=== PATIENT | female | born 1940 | race Caucasian/White ===

== ENCOUNTER → 2021-01-03 19:43 | Outpatient (ROUT) | payer OTHER, SELFPAY | PROVIDERS: PCP Physician Assistant; Visit Provider Physician Assistant | DX: R19.7 Diarrhea, unspecified (principal) | CPT/HCPCS: 87045; 87899 ==

== ENCOUNTER → 2022-03-19 15:21 | Outpatient (CLI) | payer OTHER, SELFPAY ==
[2022-03-19 19:40] LABS: Hematocrit 40.4 % (36-46); Mean Corpuscular HGB Conc 34.7 % (30-36); Mean Corpuscular Hemoglobin 32.4 PG (26-34); Mean Corpuscular Volume 93.3 fL (80-100); Platelet Count 284 X10^3/uL (150-400); Red Blood Cell Count 4.33 X10^6/uL (4.0-5.2); Red Cell Distribution Width 13.1 % (11.6-14.8)
[2022-03-19 20:07] LABS: Erythrocyte Sedimentation Rate 43 MM/HR (0-20)
[2022-03-19 20:19] LABS: TSH w/ Reflex to FT4 1.71 uIU/mL (0.47-4.68)
== END ==
PROVIDERS: PCP Physician Assistant Medical; Visit Provider Family Medicine
DX: F17.210 Nicotine dependence, cigarettes, uncomplicated (principal); R47.1 Dysarthria and anarthria
CPT/HCPCS: 84443; 85027; 85651

== ENCOUNTER 2024-11-30 08:44 | Inpatient (IN) | payer OTHER, SELFPAY ==
[2024-11-30] VITALS (11 sets, daily range): BP systolic 117–162; BP diastolic 60–78; PULSE 71–98; RESP 14–21; TEMP 36.9; O2SAT 96–99; BMI 20.7
--- NOTE | 2024-11-30 09:11 | DI.CT.S_ITS ---
PROCEDURE: CT ABDOMEN PELVIS W CON INDICATIONS: abd pain TECHNIQUE: After the administration of intravenous contrast, axial sections acquired from the lung bases to the pubic symphysis. Coronal and sagittal reformats were performed. For radiation dose reduction, the following was used: automated exposure control, adjustment of mA and/or kV according to patient size. COMPARISON: None. FINDINGS: Image quality: Diagnostic Lower chest: Unremarkable lung bases Moderate hiatal hernia. Liver: Unremarkable Gallbladder and biliary system: Cholecystectomy clips. Dilated CBD measures 1.3 cm in the mid aspect Pancreas: Mildly ectatic pancreatic duct measuring 4 mm at the head. No discrete mass is seen. Spleen: Nonenlarged Adrenals: No discrete nodules Kidneys: No discrete measurable mass or hydronephrosis Vessels and lymph nodes: The main portal vein appears patent. No abdominal aortic aneurysm. Atherosclerotic calcifications are seen. No pathologic lymphadenopathy by size criteria. Bowel and peritoneum: Moderate distal colonic wall thickening and diffuse diverticula. Upstream of this region throughout the rest of the colon, there is significant distention, measuring up to 8 cm in diameter in the cecum. Small amount pelvic free fluid. No acute small bowel obstruction. Body wall: Unremarkable Pelvis: Under distended bladder. Reproductive organs are unremarkable on limited CT evaluation Bones: No acute or significant osseous abnormality. Diffuse degenerative changes are present. IMPRESSION: Wall thickening of the distal colon, possibly colitis. Significant distention of the upstream descending, transverse, ascending colon, and cecum . Differential includes obstruction, pseudo obstruction ([place]'s), and toxic megacolon. Colonoscopy correlation is suggested when clinically appropriate for the possibly obstructing wall thickening in the distal colon. No small bowel obstruction. Distended biliary system, correlate LFTs. Mildly ectatic pancreatic duct without obstructing lesion identified on CT. Differential also includes ampullary dysfunction. Other findings above. Dictated by: Kan Cummins M.D. on 11/30/2024 at 10:16 Approved by: Kan Cummins M.D. on 11/30/2024 at 10:22
--- NOTE | 2024-11-30 09:14 | EKG_ITS ---
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
[2024-11-30 09:22] LABS: Hematocrit 42.6 % (36-46); Hemoglobin 14.4 g/dL (12.0-16.0); Mean Corpuscular HGB Conc 33.8 % (30-36); Mean Corpuscular Hemoglobin 32.9 PG (26-34); Mean Corpuscular Volume 97.2 fL (80-100); Platelet Count 321 X10^3/uL (150-400); Red Blood Cell Count 4.38 X10^6/uL (4.0-5.2); Red Cell Distribution Width 13.9 % (11.6-14.8); White Blood Cell Count 11.1 X10^3/uL (4.5-11.0)
[2024-11-30 09:23] LABS: Add Manual Diff / Slide Review YES
[2024-11-30 09:35] LABS: Alanine Aminotransferase 19 IU/L (<35); Albumin 4.7 g/dL (3.5-5.0); Albumin Globulin Ratio 1.4 (1.0-2.8); Alkaline Phosphatase 132 U/L (38-126); Aspartate Aminotransferase 37 IU/L (14-36); Bilirubin Total 1.4 mg/dL (0.2-1.3); Blood Urea Nitrogen 20 mg/dL (7-17); Calcium 9.6 mg/dL (8.4-10.2); Carbon Dioxide 23 mmol/L (22-32); Chloride 96 mmol/L (98-107); Estimated Glomerular Filt Rate > 60 mL/min (>60); Globulin 3.4 g/dL (1.7-4.1); Glucose 132 mg/dL (70-99); HEMOLYSIS 20 (0-50); Lipase 66 U/L (23-300); Potassium 3.3 mmol/L (3.4-5.1); Sodium 131 mmol/L (137-145); Total Protein 8.1 g/dL (6.3-8.2)
--- NOTE | 2024-11-30 09:35 | ED_ITS ---
HPI - Abdominal Pain General Chief Complaint: Abdominal Pain Stated Complaint: abdominal pain, Time Seen by Provider: 11/30/24 09:10 History of Present Illness HPI narrative: 84-year-old female with one-week duration of increasing generalized abdominal discomfort, feels like she has a little more bloated/distended since yesterday, unclear if she is passing gas, last bowel movement yesterday without black or red stools, normal stool caliber, not particularly hard or loose. Denies trauma injury new activities. No fevers or chills. No painful urination or frequency of urination. Has some nausea without emesis. She recalls colonoscopy screening a few years ago, had polyps diagnosed, no cancers. No prior bowel obstructions. She has prior cholecystectomy surgery and removal of ovaries, does not believe she has had a hysterectomy or appendectomy, no prior bowel intestinal surgeries. No known history of colitis, diverticulitis, Crohn's disease, inflammatory bowel disease, celiac sprue. No frequent/recent problems with constipation. No changes in diet recalled. Denies fevers chills. Denies painful or frequent urination. Related Data Home Medications Medication Instructions Recorded Confirmed hydrochlorothiazide 25 mg tablet 25 mg PO DAILY 01/03/21 11/30/24 lisinopril 10 mg tablet 10 mg PO DAILY 03/19/22 11/30/24 citalopram 20 mg tablet 30 mg PO DAILY 11/30/24 11/30/24 famotidine 20 mg tablet 20 mg PO BID 11/30/24 11/30/24 Previous Rx's Medication Instructions Recorded rosuvastatin 10 mg tablet 10 mg PO DAILY #60 tabs 03/15/22 Allergies Allergy/AdvReac Type Severity Reaction Status Date / Time pollen extracts Allergy Unknown Verified 03/15/22 11:17 Patient History Medical History Lymphadenopathy Dysarthria History of adenomatous polyp of colon Macular drusen Refractive error Surgical History S/P removal of right ovary Social History household members: spouse Smoking Status: Current every day smoker alcohol intake: current Smoking Status: Current every day smoker tobacco type: cigarettes Exam Narrative Exam Narrative: GENERAL: Well-developed patient, in mild distress. HEAD: Atraumatic. Normocephalic. EYES: Pupils equal round and reactive. Extraocular motions intact. No scleral icterus. No injection or drainage. ENT: Nose without bleeding, purulent drainage. Throat without erythema, tonsillar hypertrophy or exudate. Airway patent. NECK: Trachea midline. Non tender CARDIOVASCULAR: Regular rate and rhythm without murmurs, gallops, or rubs. RESPIRATORY: Clear to auscultation. Breath sounds equal bilaterally. No wheezes, rales, or rhonchi. GASTROINTESTINAL: Abdomen soft, non-tender, nondistended. EXTREMITIES: No edema or joint tenderness. BACK: Nontender without deformity or crepitance. No flank tenderness. NEURO: AOx3. Motor functions grossly nonfocal SKIN: No rash or erythema of visible areas Initial Vital Signs Initial Vital Signs: Vital Signs Pulse Rate 81 11/30/24 09:00 Pulse Oximetry 98 11/30/24 09:00 Course Orders Ordered: Acetaminophen (Acetaminophen 325 Mg Tablet) 650 mg PO Q6H PRN PRN Reason: Fever/Mild Pain (1-3) Atorvastatin Calcium (Atorvastatin 20 Mg Tablet) 20 mg PO DAILY [facility] Citalopram Hydrobromide (Citalopram 10 Mg Tablet) 30 mg PO DAILY [facility] Heparin Sodium (Porcine) (Heparin 5,000 Unit/Ml Vial) 5,000 unit SUBCUT BID [facility] Last Admin: 11/30/24 20:34 Dose: 5,000 unit Documented By: Admin: 11/30/24 14:01 Dose: 5,000 unit Documented By: KORIN Hydromorphone HCl (Hydromorphone 0.5 Mg Inj) 0.5 mg IV Q2H PRN PRN Reason: Pain, Severe (7-10) Sodium Chloride (Normal Saline 0.9%) 1,000 mls @ 100 mls/hr IV CONT [facility] Last Admin: 11/30/24 14:03 Dose: 100 mls/hr Documented By: KORIN Ceftriaxone Sodium 1,000 mg/ (Sodium Chloride) 100 mls @ 200 mls/hr IV Q24H [facility] Metronidazole (Flagyl) 500 mg in 100 mls @ 100 mls/hr IV Q8H [facility] Last Admin: 12/01/24 04:51 Dose: 100 mls/hr Documented By: Infusion: 11/30/24 21:34 Dose: Infused Documented By: Admin: 11/30/24 20:34 Dose: 100 mls/hr Documented By: JOB POTASSIUM CHLORIDE IN WATER (Potassium Cl 10 Meq/100 Ml Hemalatha) 10 meq in 100 mls @ 100 mls/hr IV Q1H [facility] Stop: 12/01/24 15:29 Naloxone HCl (Naloxone 0.4 Mg/Ml Vial) 0.2 mg IV Q2MIN PRN PRN Reason: Opiate Reversal Ondansetron HCl (Ondansetron 4 Mg/2 Ml Inj) 4 mg IV NOW PRN PRN Reason: Nausea And Vomiting Ondansetron HCl (Ondansetron 4 Mg Odt) 4 mg PO NOW PRN PRN Reason: Nausea And Vomiting Last Admin: 11/30/24 20:34 Dose: 4 mg Documented By: OJB Oxycodone HCl (Oxycodone Ir 5 Mg Tablet) 5 mg PO Q3H PRN PRN Reason: Pain, Moderate (4-6) Discontinued Medications Hydromorphone HCl (Hydromorphone 0.5 Mg Inj) 0.5 mg IV NOW ONE Stop: 11/30/24 11:33 Last Admin: 11/30/24 11:40 Dose: 0.5 mg Documented By: POTASSIUM CHLORIDE IN WATER (Potassium Cl 10 Meq/100 Ml [place]alatha) 10 meq in 100 mls @ 100 mls/hr IV Q1H [facility] Stop: 11/30/24 12:14 Last Admin: 11/30/24 14:04 Dose: Not Given Documented By: Infusion: 11/30/24 13:26 Dose: Infused Documented By: Admin: 11/30/24 10:18 Dose: 100 mls/hr Documented By: Ceftriaxone Sodium 1,000 mg/ (Sodium Chloride) 100 mls @ 200 mls/hr IV NOW ONE Stop: 11/30/24 11:23 Last Infusion: 11/30/24 12:24 Dose: Infused Documented By: Admin: 11/30/24 11:40 Dose: 200 mls/hr Documented By: Metronidazole (Flagyl) 500 mg in 100 mls @ 100 mls/hr IV NOW ONE Stop: 11/30/24 12:21 Last Infusion: 11/30/24 18:50 Dose: Infused Documented By: Admin: 11/30/24 12:26 Dose: 100 mls/hr Documented By: JR POTASSIUM CHLORIDE IN WATER (Potassium Cl 10 Meq/100 Ml Hemalatha) 10 meq in 100 mls @ 100 mls/hr IV Q1H SOLO Stop: 11/30/24 14:59 Last Infusion: 11/30/24 18:51 Dose: Infused Documented By: Admin: 11/30/24 14:03 Dose: 100 mls/hr Documented By: CLL Vital Signs Vital signs: Vital Signs - 8 hr 11/30/24 09:03 Temperature 98.4 F Pulse Rate 78 Respiratory Rate 14 Blood Pressure 162/78 H Pulse Oximetry 99 Oxygen Delivery Method Room Air MDM - Abdominal Pain Lab Data Attestation: I reviewed the patient's lab results. Lab results narrative: White blood cell count 93169, hemoglobin 14.4, platelets adequate. Glucose 132. BUN 20 with creatinine 0.8 normal renal function. Sodium 131 low. Potassium 3.3 low. Slight elevation T bili, AST, alkaline phosphatase, normal ALT. Lipase 66 normal. 12/01/24 06:11 12/01/24 06:11 Labs: Lab Results 11/30/24 11/30/24 Range/Units 09:02 11:11 WBC 11.1 H (4.5-11.0) X10^3/uL RBC 4.38 (4.0-5.2) X10^6/uL Hgb 14.4 (12.0-16.0) g/dL Hct 42.6 (36-46) % MCV 97.2 (80-100) fL MCH 32.9 (26-34) PG MCHC 33.8 (30-36) % RDW 13.9 (11.6-14.8) % Plt Count 321 (150-400) X10^3/uL Neut % (Auto) Not Reportable Lymph % (Auto) Not Reportable [place] % (Auto) Not Reportable Eos % (Auto) Not Reportable Baso % (Auto) Not Reportable Lymph # (Auto) Not Reportable [place] # (Auto) Not Reportable Baso # (Auto) Not Reportable Total Counted 100 Seg Neutrophils % 78.0 H (38-70) % Lymphocytes % (Manual) 19.0 L (25-45) % Monocytes % (Manual) 3.0 (2-11) % Neutrophils # (Manual) 8658 H (5273-1322) /uL RBC Morphology See below Macrocytosis 1+ H Sodium 131 L (137-145) mmol/L Potassium 3.3 L (3.4-5.1) mmol/L Chloride 96 L (98-107) mmol/L Carbon Dioxide 23 (22-32) mmol/L BUN 20 H (7-17) mg/dL Creatinine 0.80 (0.52-1.04) mg/dL Estimated GFR > 60 (>60) mL/min BUN/Creatinine Ratio 25.0 H (6-22) Glucose 132 H (70-99) mg/dL Lactate 1.7 (0.7-2.1) mmol/L Calcium 9.6 (8.4-10.2) mg/dL Total Bilirubin 1.4 H (0.2-1.3) mg/dL AST 37 H (14-36) IU/L ALT 19 (<35) IU/L Alkaline Phosphatase 132 H (38-126) U/L Total Protein 8.1 (6.3-8.2) g/dL Albumin 4.7 (3.5-5.0) g/dL Globulin 3.4 (1.7-4.1) g/dL Albumin/Globulin Ratio 1.4 (1.0-2.8) Lipase 66 (23-300) U/L Urine RBC 0-1/hpf (0-5/HPF) Urine WBC 0-1/hpf (0-5/HPF) Ur Squamous Epith Cells 0-1 /hpf (0-5/HPF) Urine Bacteria Occasional (0-1) (None) Ur Culture Indicated? Cult not indicated Vol Urine Centrifuged 10ml (spun) Point of care testing: Urine Dip Bedside Urine Glucose Negative Bedside Urine Bilirubin - Negative Bedside Urine Ketone ++ 40 Urine Specific [place] 1.010 Bedside Urine Occult Blood - Negative Bedside Urine pH 6.0 Bedside Urine Protein +/- 15 Bedside Urine Urobilinogen - Negative Bedside Urine Nitrite - Negative Bedside Urine Leukocytes - Negative Esterase Imaging Data CT scan - abdomen/pelvis: Radiologist's Impression: [address] [address] [address] Scan Report Signed Patient: Teagan Feliciano MR#: [id number] : 1940 Acct:[id number] Age/Sex: 84 / F Date of Service: 11/30/24 Loc: ED Accession Number: [id number] Procedure: CT abdomen pelvis w con Ordering Provider: Chaparro Riojas MD PROCEDURE: CT ABDOMEN PELVIS W CON INDICATIONS: abd pain TECHNIQUE: After the administration of intravenous contrast, axial sections acquired from the lung bases to the pubic symphysis. Coronal and sagittal reformats were performed. For radiation dose reduction, the following was used: automated exposure control, adjustment of mA and/or kV according to patient size. COMPARISON: None. FINDINGS: Image quality: Diagnostic Lower chest: Unremarkable lung bases Moderate hiatal hernia. Liver: Unremarkable Gallbladder and biliary system: Cholecystectomy clips. Dilated CBD measures 1.3 cm in the mid aspect Pancreas: Mildly ectatic pancreatic duct measuring 4 mm at the head. No discrete mass is seen. Spleen: Nonenlarged Adrenals: No discrete nodules Kidneys: No discrete measurable mass or hydronephrosis Vessels and lymph nodes: The main portal vein appears patent. No abdominal aortic aneurysm. Atherosclerotic calcifications are seen. No pathologic lymphadenopathy by size criteria. Bowel and peritoneum: Moderate distal colonic wall thickening and diffuse diverticula. Upstream of this region throughout the rest of the colon, there is significant distention, measuring up to 8 cm in diameter in the cecum. Small amount pelvic free fluid. No acute small bowel obstruction. Body wall: Unremarkable Pelvis: Under distended bladder. Reproductive organs are unremarkable on limited CT evaluation Bones: No acute or significant osseous abnormality. Diffuse degenerative changes are present. IMPRESSION: Wall thickening of the distal colon, possibly colitis. Significant distention of the upstream descending, transverse, ascending colon, and cecum . Differential includes obstruction, pseudo obstruction ([place]'s), and toxic megacolon. Colonoscopy correlation is suggested when clinically appropriate for the possibly obstructing wall thickening in the distal colon. No small bowel obstruction. Distended biliary system, correlate LFTs. Mildly ectatic pancreatic duct without obstructing lesion identified on CT. Differential also includes ampullary dysfunction. Other findings above. Dictated by: Kan Cummins M.D. on 11/30/2024 at 10:16 Approved by: Kan Cummins M.D. on 11/30/2024 at 10:22 ECG Data Attestation: I personally reviewed and interpreted this ECG as follows: Interpretation: Normal sinus rhythm with rate of 74, no obvious ST segment elevation or depression changes. OK 178, QRS 88, QTC 466. [facility] Narrative Medical decision making narrative: 84-year-old female complains of generalized abdominal pain for the last one week, some increased abdominal distention since yesterday. Last bowel movement yesterday. Afebrile, sirs screen negative. No significant tenderness upper lower right left central regions abdomen. No obvious ventral hernias. Screening labs pending. CT abdomen and pelvis. Denies pain medications when offered. [place] nauseated prior, not not associated current, denies need for antinausea medications. Anticipate advanced imaging if GFR favorable. Potassium 3.3 low, IV potassium ordered, keep NPO for now. Urinalysis pending. GFR pending. Renal function adequate, CT abdomen and pelvis imaging with IV contrast ordered. CT abdomen and pelvis with IV contrast. Impressions: ?Wall thickening of the distal colon, possible colitis. Significant distention of the upstream descending, transverse, ascending colon, and rectum. Differential includes obstruction, pseudo-obstruction ([place]'s) and toxic megacolon. Colonoscopy correlation is suggested when clinically appropriate for the possibly obstructing wall thickening in the distal colon. No small bowel obstruction. This did biliary system, correlate LFTs. Mildly ectatic duct without obstructing lesion identified on CT. Differential also includes ampullary dysfunction.. See radiology report. Case discussed with general surgery Dr. Encinas, impression read from CT report, in text portion the Cecal diameter 8 cm, does not feel that this is a surgical emergency at this time, can consult if needed, would admit for colitis treatment to hospitalist service. We will contact hospitalist. IV ceftriaxone, IV Flagyl for colitis coverage. Will avoid quinolones for now. 1130, case discussed with hospitalist Dr. Bhandari who accepts patient for admission to observation. Critical Care Time Critical Care Time Critical Care Time: Yes Total Critical Care Time: 35 Attestation: The high probability of a clinically significant, sudden or life threatening deterioration of the [gastrointestinal, abdominopelvic] system(s) required my full and direct attention, intervention and personal management. The aggregate critical care time was [] minutes. This time is in addition to time spent performing reported procedures but includes the following: [x] Data Review and interpretation [x] Patient assessment and monitoring of vital signs x Documentation [x] Medication orders and management Discharge Plan Departure Patient Disposition: Admitted as Observation Clinical Impression: Colitis, Hypokalemia Admit Date/Time: 11/30/24 11:27 Admit Provider: Thaddeus Castaneda
[2024-11-30 09:45] LABS: Macrocytosis 1+; Neutrophils Absolute Manual 8658 /uL (3000-5900); Total Cells Counted 100
[2024-11-30] MEDS: POTASSIUM CHLORIDE IN WATER 10 MEQ/100 ML PIGGYBACK 100 MEQ IV ×2 (10:18→14:03)
[2024-11-30 11:07] LABS: Lactate (Lactic Acid) 1.7 mmol/L (0.7-2.1)
[2024-11-30] MEDS: HYDROMORPHONE 0.5 MG INJ IV (11:40)
[2024-11-30] MEDS: cefTRIAXone 1,000 MG in SODIUM CHLORIDE 0.9% 100 ML 200 MG IV (11:40)
[2024-11-30 11:56] LABS: Bacteria Urine Occasional (0-1); Culture Indicated Urine Cult Not Indicated; RBC Urine 0-1/HPF (0-5/HPF); Squamous Epithelial Cell Urine 0-1 /HPF (0-5/HPF); Urine Volume 10mL (spun); WBC Urine 0-1/HPF (0-5/HPF)
[2024-11-30] MEDS: metroNIDAZOLE 500 MG/100 ML PIGGYBACK 100 MG IV ×2 (12:26→20:34)
--- NOTE | 2024-11-30 13:49 | P.HP_ITS ---
History of Present Illness History of Present Illness Date Patient Seen: 11/30/24 Chief complaint: abdominal pain, Narrative: The patient was an 84-year-old female with a one-week history of abdominal discomfort. She presented because of abdomen bloating. She did have a normal bowel movement yesterday and denies diarrhea. No nausea, or vomiting. No fevers, or chills. She has a history of cholecystectomy and oophorectomy. She was no history of bowel obstruction. CT in the emergency department indicated colitis of the sigmoid colon and dilation of the proximal colon. She notes that this is preceded by working in the garden and being quite hot and probably being dehydrated. She feels that she over did it and did not hydrate enough. She does not have a history of symptoms like this before, denies any clear alleviating or aggravating actions with her pain. The pain does not radiate, and it does come and go. No rectal bleeding. She had a small BM which was normal yesterday. She was urinating less, but denies dysuria or hematuria. No nausea. She was a poor appetite. She does have mild abdominal bloating. [facility] Medical History Lymphadenopathy Dysarthria History of adenomatous polyp of colon Macular drusen Refractive error Surgical History S/P removal of right ovary Social History household members: spouse Smoking Status: Current every day smoker alcohol intake: current Meds Home Medications and Allergies Home Medications Medication Instructions Recorded Confirmed Type hydrochlorothiazide 25 mg tablet 25 mg PO DAILY 01/03/21 11/30/24 History rosuvastatin 10 mg tablet 10 mg PO DAILY #60 tabs 03/15/22 11/30/24 Rx lisinopril 10 mg tablet 10 mg PO DAILY 03/19/22 11/30/24 History citalopram 20 mg tablet 30 mg PO DAILY 11/30/24 11/30/24 History famotidine 20 mg tablet 20 mg PO BID 11/30/24 11/30/24 History Allergies Allergy/AdvReac Type Severity Reaction Status Date / Time pollen extracts Allergy Unknown Verified 03/15/22 11:17 Review of Systems Review of Systems Narrative: All else reviewed and otherwise unremarkable except as noted in the history and physical. Exam Vital Signs (past 8 hours): - 11/30/24 09:00 11/30/24 09:03 11/30/24 09:30 Temperature 98.4 F Pulse Rate 81 78 74 Respiratory Rate 14 18 Blood Pressure 162/78 H Pulse Oximetry 98 99 98 Oxygen Delivery Method Room Air 11/30/24 10:00 11/30/24 10:30 11/30/24 11:07 Temperature Pulse Rate 77 77 98 H Respiratory Rate 17 16 20 Blood Pressure Pulse Oximetry 97 98 96 Oxygen Delivery Method Room Air 11/30/24 11:08 11/30/24 11:08 11/30/24 11:30 Temperature Pulse Rate 92 H Respiratory Rate 18 Blood Pressure 158/67 H 149/76 H Pulse Oximetry 96 Oxygen Delivery Method 11/30/24 11:30 11/30/24 12:00 11/30/24 12:00 Temperature Pulse Rate 81 74 Respiratory Rate 20 21 Blood Pressure 136/66 Pulse Oximetry 99 97 Oxygen Delivery Method 11/30/24 12:30 11/30/24 12:30 Temperature Pulse Rate 75 Respiratory Rate 14 Blood Pressure 129/60 Pulse Oximetry 97 Oxygen Delivery Method Room Air Oxygen Delivery Method Room Air Narrative Exam Narrative: NAD, alert and oriented, fluent speech, calm. Normocephalic skull, EOMI, anicteric sclera, symmetric pupils. Oropharynx unremarkable, no droop. Neck supple, midline trachea, no adenopathy. Lungs clear, normal rate and effort. Heart regular, no murmur gallop or rub. Abdomen is soft, non distended and non tender. Extremities are free of edema. Skin is free of rash or lesions. Joints are not swollen or deformed. Judgment appears to be normal. Objective ECG Impression: Intervals [place] Rate: 74 P: 78 NM: 178 QRS: -28 QRSD: 88 T: 64 QT: 420 QTc: 466 Interpretive Statements Normal sinus rhythm Possible Anterior infarct , age undetermined Imaging CT scan - abdomen: Radiologist's impression: Wall thickening of the distal colon, possibly colitis. Significant distention of the upstream descending, transverse, ascending colon, and cecum . Differential includes obstruction, pseudo obstruction ([place]'s), and toxic megacolon. Colonoscopy correlation is suggested when clinically appropriate for the possibly obstructing wall thickening in the distal colon. No small bowel obstruction. Distended biliary system, correlate LFTs. Mildly ectatic pancreatic duct without obstructing lesion identified on CT. Differential also includes ampullary dysfunction. Other findings above. Labs 11/30/24 09:02 11/30/24 09:02 Labs: Laboratory Results - last 24 hr 11/30/24 11/30/24 09:02 11:11 WBC 11.1 H RBC 4.38 Hgb 14.4 Hct 42.6 MCV 97.2 MCH 32.9 MCHC 33.8 RDW 13.9 Plt Count 321 Neut % (Auto) Not Reportable Lymph % (Auto) Not Reportable [place] % (Auto) Not Reportable Eos % (Auto) Not Reportable Baso % (Auto) Not Reportable Lymph # (Auto) Not Reportable [place] # (Auto) Not Reportable Baso # (Auto) Not Reportable Total Counted 100 Seg Neutrophils % 78.0 H Lymphocytes % (Manual) 19.0 L Monocytes % (Manual) 3.0 Neutrophils # (Manual) 8658 H RBC Morphology See below Macrocytosis 1+ H Sodium 131 L Potassium 3.3 L Chloride 96 L Carbon Dioxide 23 BUN 20 H Creatinine 0.80 Estimated GFR > 60 BUN/Creatinine Ratio 25.0 H Glucose 132 H Lactate 1.7 Calcium 9.6 Total Bilirubin 1.4 H AST 37 H ALT 19 Alkaline Phosphatase 132 H Total Protein 8.1 Albumin 4.7 Globulin 3.4 Albumin/Globulin Ratio 1.4 Lipase 66 Urine RBC 0-1/hpf Urine WBC 0-1/hpf Ur Squamous Epith Cells 0-1 /hpf Urine Bacteria Occasional (0-1) Ur Culture Indicated? Cult not indicated Vol Urine Centrifuged 10ml (spun) Assessment & Plan Assessment & Plan narrative: 1. Possible ischemic colitis, present on admission and active. 2. Probable volume depletion, present on admission and active. 2. Dysarthria, present on admission and stable. Plan: -IV fluids with normal saline. -monitor abdominal pain. -monitor white count. -bowel rest for 12-24 hours. -monitor urine output. She was DNR, her is her proxy decision maker. DNR status was confirmed with her today. Time-Based Coding :: 35 min spent with patient and on the chart (including review of chart, obtaining history, exam, reviewing outside data, placing orders, documenting exam and treatment plan, and counseling patient) on 11/30. Quality VTE Deep Vein Thrombosis/Pulmonary Embolism Present on Admission: No MIPS - Admit I confirm the patient?s Advance Care Plan is present, Code status is documented, Surrogate decision maker is in patient?s record [If Yes, STOP here]: Yes MIPS - Meds 'Current medications' to include all prescriptions, [id number] products, herbals, cannabis/cannabidiol products, and vitamin/mineral/dietary (nutritional) supplements. I have utilized all available resources to obtain, update, or review the patient?s current medications. [If Yes, STOP here]: Yes
[2024-11-30] MEDS: HEPARIN 5,000 UNIT/ML VIAL 5000 UNIT SUBCUT ×2 (14:01→20:34)
[2024-11-30] MEDS: SODIUM CHLORIDE 0.9% 1,000 ML 100 ML IV (14:03)
[2024-11-30] MEDS: ONDANSETRON 4 MG ODT PO (20:34)
--- NOTE | 2024-12-01 02:53 | PC.NURSE ---
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 Bed alarm is on and educated patient on using call-light when needing to get OOB, although patient continuing to get OOB without calling stating I can do it just fine, thank you. Patient requested to pause IVF for a few hours, stating I feel like I'm being tortured, I need a break, in reference to IV pump beeping d/t arm being bent. Attempted another IV site, unsuccessful. Patient agreeable to restart IVF at a later time. Patient denies pain, reports mild nausea w/o emesis. Tolerating sips of water. Abdomen is distended, non-tender. Patient had x1 BM overnight. Fall precautions in place, plan of care ongoing.
[2024-12-01] MEDS: metroNIDAZOLE 500 MG/100 ML PIGGYBACK 100 MG IV ×3 (04:51→21:00)
[2024-12-01 06:32] LABS: Add Manual Diff / Slide Review NO; Basophils Absolute Auto 0 /uL (0-100); Basophils Percent Auto 0.3 % (0-2); Eosinophils Absolute Auto 0 /uL (0-450); Eosinophils Percent Auto 0.1 % (2-4); Hematocrit 38.2 % (36-46); Hemoglobin 12.8 g/dL (12.0-16.0); Lymphocytes Absolute Auto 1000 /uL (1100-4500); Lymphocytes Percent Auto 11.4 % (25-40); Mean Corpuscular HGB Conc 33.6 % (30-36); Mean Corpuscular Hemoglobin 32.2 PG (26-34); Mean Corpuscular Volume 95.9 fL (80-100); Monocytes Absolute Auto 600 /uL (0-900); Monocytes Percent Auto 7.3 % (3-14); Neutrophils Absolute Auto 7000 /uL (1500-7000); Neutrophils Percent Auto 80.9 % (50-75); Platelet Count 293 X10^3/uL (150-400); Red Blood Cell Count 3.99 X10^6/uL (4.0-5.2); Red Cell Distribution Width 14.1 % (11.6-14.8); White Blood Cell Count 8.7 X10^3/uL (4.5-11.0)
[2024-12-01 06:43] LABS: Alanine Aminotransferase 37 IU/L (<35); Albumin 3.9 g/dL (3.5-5.0); Albumin Globulin Ratio 1.3 (1.0-2.8); Alkaline Phosphatase 165 U/L (38-126); Aspartate Aminotransferase 74 IU/L (14-36); BUN Creatinine Ratio 27.9 (6-22); Blood Urea Nitrogen 19 mg/dL (7-17); Calcium 9.2 mg/dL (8.4-10.2); Carbon Dioxide 26 mmol/L (22-32); Chloride 100 mmol/L (98-107); Estimated Glomerular Filt Rate > 60 mL/min (>60); Globulin 2.9 g/dL (1.7-4.1); Glucose 111 mg/dL (70-99); HEMOLYSIS < 15 (0-50); Sodium 134 mmol/L (137-145); Total Protein 6.8 g/dL (6.3-8.2)
[2024-12-01 07:00] VITALS: BP 123/72; PULSE 85; RESP 21; TEMP 36.8; O2SAT 97
--- NOTE | 2024-12-01 08:21 | PC.NURSE ---
Assess- Patient is alert and oriented x3 in the day time but has some confusion in the evening. She is steady on her feet in the day time, but got tangled up in her iv pole and pump last night. Patients abdomen is distended, bt+x4. She denies any nausea or discomfort at this time.
--- NOTE | 2024-12-01 08:47 | DI.RAD.S_ITS ---
PROCEDURE: XR KUB INDICATIONS: abdomen pain TECHNIQUE: One view of the abdomen acquired. COMPARISON: [facility], CT, CT ABDOMEN PELVIS W CON, 11/30/2024, 9:45. FINDINGS: Surgical changes and devices: Surgical clips in right upper quadrant compatible with prior cholecystectomy. Bowel: Redemonstration of multiple prominent air-filled loops of distal colon with increased density in the sigmoid colon and rectum compatible with previously seen fecal material within this region. No radiographic evidence for small bowel obstruction. Soft tissues: No suspicious abdominal calcifications. Visualized solid organ contours appear normal in size. Bones: No suspicious bony lesions. IMPRESSION: Stable appearance of distended colon. No evidence for small bowel obstruction. Dictated by: Jayy Sherman M.D. on 12/01/2024 at 9:19 Approved by: Jayy Sherman M.D. on 12/01/2024 at 9:23
[2024-12-01] MEDS: cefTRIAXone 1,000 MG in SODIUM CHLORIDE 0.9% 100 ML 200 MG IV (10:00)
[2024-12-01] MEDS: POTASSIUM CHLORIDE IN WATER 10 MEQ/100 ML PIGGYBACK 100 MEQ IV ×6 (10:00→17:12)
[2024-12-01] MEDS: HEPARIN 5,000 UNIT/ML VIAL 5000 UNIT SUBCUT ×2 (10:00→20:59)
--- NOTE | 2024-12-01 11:26 | PM.PN.1 ---
Subjective Subjective Interval history: S: Abdomen more distended, no nausea. Minimal pain. She had a very small soft stool overnight. Case was discussed with surgery as her KUB looks grossly abnormal with a lot of retained colonic air. She did have some confusion overnight and does note that she has memory issues. This appears to be consistent with sundowning. Exam Vital Signs (past 8 hours): - 12/01/24 07:00 Temperature 98.2 F Pulse Rate 85 Respiratory Rate 21 Blood Pressure 123/72 Pulse Oximetry 97 Oxygen Delivery Method Room Air Oxygen Flow Rate 0 Narrative Exam Narrative: NAD, alert and oriented. Fluent speech. Lungs are clear, normal rate and effort. Heart is regular, no murmur gallop or rub. Abdomen is distended and hypertympanic. No tenderness.. Extremities are free of edema. Objective Imaging Abdominal x-ray: Radiologist's impression: Stable appearance of distended colon. No evidence for small bowel obstruction. Labs 12/01/24 06:11 12/01/24 06:11 Labs: Laboratory Results - last 24 hr 11/30/24 12/01/24 11:11 06:11 WBC 8.7 RBC 3.99 L Hgb 12.8 Hct 38.2 MCV 95.9 MCH 32.2 MCHC 33.6 RDW 14.1 Plt Count 293 Neut % (Auto) 80.9 H Lymph % (Auto) 11.4 L [place] % (Auto) 7.3 Eos % (Auto) 0.1 L Baso % (Auto) 0.3 Neut # (Auto) 7000 Lymph # (Auto) 1000 L [place] # (Auto) 600 Eos # (Auto) 0 Baso # (Auto) 0 Sodium 134 L Potassium 3.0 L Chloride 100 Carbon Dioxide 26 BUN 19 H Creatinine 0.68 Estimated GFR > 60 BUN/Creatinine Ratio 27.9 H Glucose 111 H Calcium 9.2 Total Bilirubin 1.0 AST 74 H ALT 37 H Alkaline Phosphatase 165 H Total Protein 6.8 Albumin 3.9 Globulin 2.9 Albumin/Globulin Ratio 1.3 Urine RBC 0-1/hpf Urine WBC 0-1/hpf Ur Squamous Epith Cells 0-1 /hpf Urine Bacteria Occasional (0-1) Ur Culture Indicated? Cult not indicated Vol Urine Centrifuged 10ml (spun) FORMERLY [facility], [facility]–1983 Medical History Lymphadenopathy Dysarthria History of adenomatous polyp of colon Macular drusen Refractive error Surgical History S/P removal of right ovary Social History household members: spouse Smoking Status: Current every day smoker alcohol intake: current Assessment & Plan Assessment & Plan narrative: 1. Possible ischemic colitis, present on admission and active. 2. High volume of colonic air, present on admission and persistent. 3. Probable volume depletion, present on admission and active. 4. Dysarthria, present on admission and stable. Plan: -IV fluids with normal saline. -surgical consult for recommendations given the amount of persistent colonic gas. She is not stable for discharge on requires another night of care for her colitis and colonic dilation. Time-Based Coding :: [TOTAL MINUTES] spent with patient and on the chart (including review of chart, obtaining history, exam, reviewing outside data, placing orders, documenting exam and treatment plan, and counseling patient) on [DATE]. Quality VTE Deep Vein Thrombosis/Pulmonary Embolism Present on Admission: No
--- NOTE | 2024-12-01 14:17 | CM.DANOTE ---
Initial DCP Assessment Visit Note Reviewed EMR and team rounds for pt's status and updates. Met with pt and spouse at bedside to introduce self and role, pt was found to be alert/oriented, resting quietly in bed and was visiting w/spouse. Pt lives independently with her spouse in their own home on [facility]. No anticipated care needs for CM d/c needs at this time. Pt's spouse will transport pt once she's been medically cleared for d/c, likely in another 1-2 days. Payor: [employer] Medicare Adv PCP: Violetta Marin Pt is a 84 year-old F wo presented to the ED with c/o worsening abdominal pain and bloating over the last week. CT abdomen showed colitis, however no SBO or other abnormalities. Surgery was consulted, and plan was made for conservative, non-surgical approach at this time. Pt was started on IV ABO's and flagyl, will likely need another 1-2 days before she's stable. Pt does also demonstrate evening sundowning behaviors with increased confusion, however has been able to be redirected without issue. DCP will continue to monitor and assist with any final evolving d/c needs and/or resources for final d/c plan. Discharge Planning/Care Management CM Discharge Assessment Start: 11/30/24 11:37 Freq: Status: Active Protocol: Document 12/01/24 14:15 DPL (Rec: 12/01/24 14:17 DPL [id number]) Discharge Planning Assessment Assigned Electrolytic De Scaler LAURY Carbone Advance Directives? No History Provided By Patient,Family Member,Medical Record Has Patient been admitted in last 30 No days? Prior Living Arrangements House Household Members spouse Type of transporation used prior to Drives own vehicle admit Independent with ADL's Yes Is patient alert and oriented? Yes Caregiver for Another No Comment No AD Comment No anticipated home d/c needs at this time. Barriers to Discharge No Discharge Plan Home Referrals Initiated None needed Whiteboard Updated in Patient Room with Yes name and ext. # of Electrolytic De Scaler Review Status In Process Please Provide Date Initial DC 12/01/24 Assessment Was Performed
--- NOTE | 2024-12-01 18:09 | PM.CN.IH.1 ---
History of Present Illness Consult details Date Patient Seen: 12/01/24 Time Patient Seen: 18:09 Chief complaint: abdominal pain, Narrative: Teagan is an 84-year-old woman who presented to the emergency room with abdominal pain and distention for 1 week. She thought it was related to dehydration after she had been working in the garden. She was not passed much flatus recently. She did have a small bowel movement overnight. A CT scan was performed in the emergency room which showed a dilated proximal colon leading up to a thickened segment of sigmoid colon. There does not appear to be any surrounding inflammation. She believes her last colonoscopy was about 4 years ago in [place] and was relatively unremarkable. Reviewing the EMR it appeared she was seen for left lower quadrant abdominal pain by Dr. Trevino in 2021 who considered the possibility of diverticulitis. Meds Home Medications and Allergies Home Medications Medication Instructions Recorded Confirmed Type hydrochlorothiazide 25 mg tablet 25 mg PO DAILY 01/03/21 11/30/24 History rosuvastatin 10 mg tablet 10 mg PO DAILY #60 tabs 03/15/22 11/30/24 Rx lisinopril 10 mg tablet 10 mg PO DAILY 03/19/22 11/30/24 History citalopram 20 mg tablet 30 mg PO DAILY 11/30/24 11/30/24 History famotidine 20 mg tablet 20 mg PO BID 11/30/24 11/30/24 History Allergies Allergy/AdvReac Type Severity Reaction Status Date / Time pollen extracts Allergy Unknown Verified 03/15/22 11:17 Exam Vital Signs (past 8 hours): Oxygen Delivery Method Room Air Oxygen Flow Rate 0 Narrative Exam Narrative: Abdomen distended Tender to percussion in all 4 quadrants Objective Labs 12/01/24 06:11 12/01/24 06:11 Labs: Laboratory Results - last 24 hr 12/01/24 06:11 WBC 8.7 RBC 3.99 L Hgb 12.8 Hct 38.2 MCV 95.9 MCH 32.2 MCHC 33.6 RDW 14.1 Plt Count 293 Neut % (Auto) 80.9 H Lymph % (Auto) 11.4 L [place] % (Auto) 7.3 Eos % (Auto) 0.1 L Baso % (Auto) 0.3 Neut # (Auto) 7000 Lymph # (Auto) 1000 L [place] # (Auto) 600 Eos # (Auto) 0 Baso # (Auto) 0 Sodium 134 L Potassium 3.0 L Chloride 100 Carbon Dioxide 26 BUN 19 H Creatinine 0.68 Estimated GFR > 60 BUN/Creatinine Ratio 27.9 H Glucose 111 H Calcium 9.2 Total Bilirubin 1.0 AST 74 H ALT 37 H Alkaline Phosphatase 165 H Total Protein 6.8 Albumin 3.9 Globulin 2.9 Albumin/Globulin Ratio 1.3 PFSH Medical History Lymphadenopathy Dysarthria History of adenomatous polyp of colon Macular drusen Refractive error Surgical History S/P removal of right ovary Social History household members: spouse Tobacco & Substance Use Smoking Status: Current every day smoker alcohol intake: current Assessment & Plan Assessment and plan (1) Large bowel obstruction: Status: Acute Plan Teagan appears to have a large bowel obstruction of unclear etiology. A diverticular stricture seems like a distinct possibility. She has been started on antibiotics. If she has a diverticular stricture there is a high chance it will resolve with antibiotics which could allow for decompression of her proximal colon and potentially deferral of a colectomy to an elective situation. I explained to Teagan that if she does not improve soon she may need to have a sigmoid colon resection which would most likely require an end colostomy. As long as her vital signs remain benign we can allow for more time to see if the antibiotics resolve her obstruction. Time-Based Coding :: [TOTAL MINUTES] spent with patient and on the chart (including review of chart, obtaining history, exam, reviewing outside data, placing orders, documenting exam and treatment plan, and counseling patient) on [DATE]. PROFEE Charge Codes Inpatient or Observation consultation: [id number]
[2024-12-01 19:19] LABS: BUN Creatinine Ratio 32.4 (6-22); Blood Urea Nitrogen 24 mg/dL (7-17); Calcium 9.6 mg/dL (8.4-10.2); Carbon Dioxide 20 mmol/L (22-32); Chloride 102 mmol/L (98-107); Estimated Glomerular Filt Rate > 60 mL/min (>60); Glucose 137 mg/dL (70-99); HEMOLYSIS 17 (0-50); Sodium 133 mmol/L (137-145)
[2024-12-01 20:11] VITALS: BP 138/60; PULSE 81; RESP 16; TEMP 36.8; O2SAT 95
[2024-12-01] MEDS: ONDANSETRON 4 MG/2 ML INJ IV (23:12)
[2024-12-02] MEDS: metroNIDAZOLE 500 MG/100 ML PIGGYBACK 100 MG IV ×3 (04:13→20:14)
[2024-12-02 06:50] LABS: Add Manual Diff / Slide Review NO; Basophils Absolute Auto 0 /uL (0-100); Basophils Percent Auto 0.1 % (0-2); Eosinophils Absolute Auto 0 /uL (0-450); Eosinophils Percent Auto 0.1 % (2-4); Hematocrit 39.1 % (36-46); Hemoglobin 13.5 g/dL (12.0-16.0); Lymphocytes Absolute Auto 700 /uL (1100-4500); Lymphocytes Percent Auto 6.2 % (25-40); Mean Corpuscular HGB Conc 34.4 % (30-36); Mean Corpuscular Hemoglobin 33.2 PG (26-34); Mean Corpuscular Volume 96.5 fL (80-100); Monocytes Absolute Auto 1100 /uL (0-900); Monocytes Percent Auto 9.8 % (3-14); Neutrophils Absolute Auto 9000 /uL (1500-7000); Neutrophils Percent Auto 83.8 % (50-75); Platelet Count 311 X10^3/uL (150-400); Red Blood Cell Count 4.06 X10^6/uL (4.0-5.2); Red Cell Distribution Width 14.1 % (11.6-14.8); White Blood Cell Count 10.7 X10^3/uL (4.5-11.0)
[2024-12-02 06:53] LABS: Alanine Aminotransferase 29 IU/L (<35); Albumin 4.1 g/dL (3.5-5.0); Albumin Globulin Ratio 1.3 (1.0-2.8); Alkaline Phosphatase 147 U/L (38-126); Aspartate Aminotransferase 54 IU/L (14-36); BUN Creatinine Ratio 36.1 (6-22); Bilirubin Total 1.3 mg/dL (0.2-1.3); Blood Urea Nitrogen 26 mg/dL (7-17); Calcium 9.6 mg/dL (8.4-10.2); Carbon Dioxide 23 mmol/L (22-32); Chloride 101 mmol/L (98-107); Estimated Glomerular Filt Rate > 60 mL/min (>60); Globulin 3.1 g/dL (1.7-4.1); Glucose 155 mg/dL (70-99); HEMOLYSIS < 15 (0-50); Potassium 4.4 mmol/L (3.4-5.1); Sodium 134 mmol/L (137-145); Total Protein 7.2 g/dL (6.3-8.2)
[2024-12-02 07:00] VITALS: BP 145/66; PULSE 77; RESP 18; TEMP 36.4; O2SAT 97
--- NOTE | 2024-12-02 07:24 | PM.PN.1 ---
Subjective Subjective Interval history: Summary: She was an 84-year-old female who presented with abdominal pain and distention. She was evidence of distal sigmoid colitis and colonic dilation. She was not really improving in surgery is following. There is a possibility of distal obstruction due to either a diverticular stricture or colitis. If the patient fails to improve significantly she may be a candidate for a diverting colostomy on . S: She had a large volume diarrheal stool last night. She was little less distended still quite distended and hypertympanic. She was not hungry. Some nausea. No rectal bleeding. Exam Vital Signs (past 8 hours): Oxygen Delivery Method Room Air Oxygen Flow Rate 0 Narrative Exam Narrative: NAD, alert and oriented. Fluent speech. Lungs are clear, normal rate and effort. Heart is regular, no murmur gallop or rub. Abdomen is distended, hypertympanic, hyperactive bowel tones, and nontender. Extremities are free of edema. Objective Labs 12/02/24 06:10 12/02/24 06:10 Labs: Laboratory Results - last 24 hr 12/01/24 12/02/24 18:29 06:10 WBC 10.7 RBC 4.06 Hgb 13.5 Hct 39.1 MCV 96.5 MCH 33.2 MCHC 34.4 RDW 14.1 Plt Count 311 Neut % (Auto) 83.8 H Lymph % (Auto) 6.2 L Wallace % (Auto) 9.8 Eos % (Auto) 0.1 L Baso % (Auto) 0.1 Neut # (Auto) 9000 H Lymph # (Auto) 700 L Wallace # (Auto) 1100 H Eos # (Auto) 0 Baso # (Auto) 0 Sodium 133 L 134 L Potassium 5.0 D 4.4 Chloride 102 101 Carbon Dioxide 20 L 23 BUN 24 H 26 H Creatinine 0.74 0.72 Estimated GFR > 60 > 60 BUN/Creatinine Ratio 32.4 H 36.1 H Glucose 137 H 155 H Calcium 9.6 9.6 Total Bilirubin 1.3 AST 54 H ALT 29 Alkaline Phosphatase 147 H Total Protein 7.2 Albumin 4.1 Globulin 3.1 Albumin/Globulin Ratio 1.3 PFSH Medical History Lymphadenopathy Dysarthria History of adenomatous polyp of colon Macular drusen Refractive error Surgical History S/P removal of right ovary Social History household members: spouse Smoking Status: Current every day smoker alcohol intake: current Assessment & Plan Assessment & Plan narrative: 1. Possible ischemic colitis, present on admission and active. 2. High volume of colonic air (colonic obstruction), present on admission and persistent. 3. Probable volume depletion, present on admission and active. 4. Dysarthria, present on admission and stable. Plan: -IV fluids with normal saline. -NPO -ambulate -continue IV antibiotics -surgery is considering a diverting colostomy to decompress: If she does not improve clinically via about December 03. , Dr. Tovar. She is not stable for discharge on requires another night of care for her colitis and colonic dilation. Time-Based Coding :: [TOTAL MINUTES] spent with patient and on the chart (including review of chart, obtaining history, exam, reviewing outside data, placing orders, documenting exam and treatment plan, and counseling patient) on [DATE]. Quality VTE Deep Vein Thrombosis/Pulmonary Embolism Present on Admission: No
[2024-12-02] MEDS: CITALOPRAM 10 MG TABLET 30 MG PO (08:30)
[2024-12-02] MEDS: cefTRIAXone 1,000 MG in SODIUM CHLORIDE 0.9% 100 ML 200 MG IV (08:31)
[2024-12-02] MEDS: SODIUM CHLORIDE 0.9% 1,000 ML 100 ML IV ×2 (08:31→21:23)
[2024-12-02] MEDS: HEPARIN 5,000 UNIT/ML VIAL 5000 UNIT SUBCUT (08:31)
[2024-12-02] MEDS: ATORVASTATIN 20 MG TABLET PO (08:31)
[2024-12-02] MEDS: ACETAMINOPHEN 325 MG TABLET 650 MG PO (08:31)
--- NOTE | 2024-12-02 11:03 | CM.DPC ---
DCP Cont. Reviewed EMR and team rounds for status updates. Pt will likely need another 1-2 days before being medically stable for home d/c. Monitoring for any further evolving d/c needs.
--- NOTE | 2024-12-02 17:57 | PM.PN.IH.1 ---
Subjective Subjective Date Patient Seen: 12/02/24 Time Patient Seen: 17:57 Interval history: Teagan has had some liquid stool but she still feels distended and nauseous. She has vomited. She was not passed flatus. Exam Vital Signs (past 8 hours): Oxygen Delivery Method Room Air Oxygen Flow Rate 0 Narrative Exam Narrative: Abdomen is about the same distention and tenderness as yesterday No mary peritonitis Objective Labs 12/02/24 06:10 12/02/24 06:10 Labs: Laboratory Results - last 24 hr 12/01/24 12/02/24 18:29 06:10 WBC 10.7 RBC 4.06 Hgb 13.5 Hct 39.1 MCV 96.5 MCH 33.2 MCHC 34.4 RDW 14.1 Plt Count 311 Neut % (Auto) 83.8 H Lymph % (Auto) 6.2 L [place] % (Auto) 9.8 Eos % (Auto) 0.1 L Baso % (Auto) 0.1 Neut # (Auto) 9000 H Lymph # (Auto) 700 L [place] # (Auto) 1100 H Eos # (Auto) 0 Baso # (Auto) 0 Sodium 133 L 134 L Potassium 5.0 D 4.4 Chloride 102 101 Carbon Dioxide 20 L 23 BUN 24 H 26 H Creatinine 0.74 0.72 Estimated GFR > 60 > 60 BUN/Creatinine Ratio 32.4 H 36.1 H Glucose 137 H 155 H Calcium 9.6 9.6 Total Bilirubin 1.3 AST 54 H ALT 29 Alkaline Phosphatase 147 H Total Protein 7.2 Albumin 4.1 Globulin 3.1 Albumin/Globulin Ratio 1.3 PFSH Medical History Lymphadenopathy Dysarthria History of adenomatous polyp of colon Macular drusen Refractive error Surgical History S/P removal of right ovary Social History household members: spouse Smoking Status: Current every day smoker alcohol intake: current Assessment & Plan Assessment and plan (1) Large bowel obstruction: Status: Acute Plan If she does not open up and start passing significantly more stool and flatus by tomorrow I think she needs to have surgery to resect the portion of her colon causing the obstruction. I explained to her and her that this would require a colostomy because there would be too high of a risk for a primary anastomosis given the degree of colonic distention above the stricture. Time-Based Coding :: [TOTAL MINUTES] spent with patient and on the chart (including review of chart, obtaining history, exam, reviewing outside data, placing orders, documenting exam and treatment plan, and counseling patient) on [DATE]. Quality VTE Deep Vein Thrombosis/Pulmonary Embolism Present on Admission: No PROFEE Tissue Coordinator Document charge(s): No
[2024-12-02 20:25] VITALS: BP 147/69; PULSE 87; RESP 17; TEMP 37.3; O2SAT 100
--- NOTE | 2024-12-02 22:06 | PC.NURSE ---
Patient is alert and oriented except did not know day of month and can be forgetful. Breath sounds CTA with RA sat of 100%. HRR w/BP of 147/69. Denied nausea but is belching. Abdomen is distended but soft and BT are hypoactive. Endorses urinary dribbling and urgency but denied dysuria. Is able to turn herself in bed. Is assisted to bathroom with SBA and she holds onto IV pole. Is steady on her feet but takes small, shuffling steps. Is currently NPO except for ice and will be strict NPO after 0000 as surgery is anticipated tomorrow unless she has better bowel elimination overnight. Bilateral calf SCD's were applied at shift change. Denies pain. Fall risk score is moderate and bed alarm is activated.
[2024-12-03] VITALS (30 sets, daily range): BP systolic 99–180; BP diastolic 51–116; PULSE 67–118; RESP 12–121; TEMP 36.2–37.1; O2SAT 92–100; BMI 20.7
--- NOTE | 2024-12-03 | PATH_ITS ---
[facility] Accession Number: [id number] No. of containers..01 Tissue . 01 Material submitted: . colon - COLON AND TERMINAL ILEUM, ILEOCECECTOMY . 01 Diagnosis: COLON AND TERMINAL ILEUM, ILEOCECECTOMY: 1. Segment of colon and terminal ileum with multifocal mucosal erosion and ulceration, with focal gangrenous mucosal necrosis. 2. Mild active serositis. 3. Vermiform appendix with no diagnostic alterations. 4. Fifteen lymph nodes with no evidence of malignancy. 5. No dysplasia, malignancy, granulomas, or infectious organisms identified. See comment. . 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 While the perforation was not identified after fixation of the specimen, the presence of active serositis and focal gangrenous mucosal necrosis is compatible with that history. The etiology is not apparent, but the differential includes infectious etiologies or ischemia, among other possibilities. [facility] 12/10/2024 1636 Local . 01 Electronically signed: . Som Heath MD, Pathologist NPI- [id number] . 01 Gross description: . Received in formalin with two identifiers and cecum, is an ileocecectomy specimen with the ileum measuring 5.9 cm in length by 2.3 cm in diameter and the cecum is distended measuring 15.8 cm in length by 8.5 cm in diameter. The serosa is mottled, violaceous, and erythematous with a small amount of attached adipose. An appendix is identified 4.5 cm in length by 0.6 cm in diameter. . The ileal margin is inked blue, the cecal margin is inked black, and the mesenteric margin is inked green. The lumen is filled with brown, semi-solid fecal material. The mucosa is diffusely mottled, li to erythematous, with small punctate areas of adherent material possibly consistent with exudate averaging 0.3 cm in greatest dimension. The ileocecal valve is diffusely erythematous. The folds of the cecum are attenuated while the folds of the ileum are edematous. Two small polypoid nodules are identified in the ileum, both measuring 0.3 x 0.3 x 0.2 cm. No additional lesions are identified. The martinez average 0.3 cm thick with no perforations identified. An accumulation of hemorrhagic material is identified direactly adjacent to the wall of the ileum across an area measuring 2.0 x 1.3 x 1.0 cm. . The appendix has blanco smooth serosa with slightly dilated vasculature. The lumen is pinpoint averaging 0.1 cm in diameter. The martinez are blanco, averaging 0.3 cm thick with no perrforations identified. The distal tip appears surgically truncated, and no lesions are identified. . Palpation reveals 15 blanco lymph node candidates ranging from 0.3 to 1.1 cm in greatest dimension. . Attending Psychiatrist sections are submitted as follows: A1: Attending Psychiatrist margins en face. A2: Ileum with nodules. A3: Ileum with hemorrhagic area. A4: Full thickness sections with adherent mucosal material. A5: Ileocecal valve. A6: Full thickness ileum and colon. A7: Appendix to include entire bisected distal tip and cross-sections. A8: Two differentially inked bisected lymph node candidates. A9: Single trisected lymph node candidate. A10: Six intact lymph node candidates. A11: Six intact lymph node candidates. ([id number]) /[facility]BI 12/10/2024 1636 Local . 01 Pathologist provided ICD-10: K63.3 . 01 CPT . 350721 Specimen Comment: A courtesy copy of this report has been sent to [phone] Performed at: [address] [address], [place], [place] [id number] MD Som Heath MD Phone: [phone]
[2024-12-03] MEDS: metroNIDAZOLE 500 MG/100 ML PIGGYBACK 100 MG IV ×3 (04:02→22:05)
--- NOTE | 2024-12-03 08:17 | DI.RAD.S_ITS ---
PROCEDURE: XR KUB INDICATIONS: large bowel obstruction TECHNIQUE: One view of the abdomen acquired. COMPARISON: [facility], CR, XR KUB, 12/01/2024, 8:53. FINDINGS: Surgical changes and devices: Cholecystectomy clips. Bowel: : The colon continues to demonstrate dilation without significant interval change. Soft tissues: No suspicious abdominal calcifications. Visualized solid organ contours appear normal in size. Bones: No suspicious bony lesions. IMPRESSION: Relatively unchanged appearance of colonic dilation. Dictated by: Rylee Moscoso M.D. on 12/03/2024 at 10:39 Approved by: Rylee Moscoso M.D. on 12/03/2024 at 10:40
[2024-12-03 09:00] LABS: Add Manual Diff / Slide Review NO; Basophils Absolute Auto 0 /uL (0-100); Basophils Percent Auto 0.1 % (0-2); Eosinophils Absolute Auto 0 /uL (0-450); Eosinophils Percent Auto 0.1 % (2-4); Hematocrit 37.6 % (36-46); Hemoglobin 12.8 g/dL (12.0-16.0); Lymphocytes Absolute Auto 500 /uL (1100-4500); Lymphocytes Percent Auto 9.3 % (25-40); Mean Corpuscular HGB Conc 34.1 % (30-36); Mean Corpuscular Volume 96.7 fL (80-100); Monocytes Absolute Auto 1100 /uL (0-900); Monocytes Percent Auto 20.7 % (3-14); Neutrophils Absolute Auto 3700 /uL (1500-7000); Neutrophils Percent Auto 69.8 % (50-75); Platelet Count 274 X10^3/uL (150-400); Red Blood Cell Count 3.89 X10^6/uL (4.0-5.2); White Blood Cell Count 5.3 X10^3/uL (4.5-11.0)
[2024-12-03 09:06] LABS: INR 1.3 (0.9-1.3); Prothrombin Time 15.1 SECONDS (9.4-12.5)
[2024-12-03 09:09] LABS: PTT Partial Thromboplastin Tim 27 SECONDS (25.1-36.5)
[2024-12-03 09:11] LABS: Alanine Aminotransferase 20 IU/L (<35); Albumin 3.5 g/dL (3.5-5.0); Albumin Globulin Ratio 1.3 (1.0-2.8); Alkaline Phosphatase 112 U/L (38-126); Aspartate Aminotransferase 37 IU/L (14-36); BUN Creatinine Ratio 32.8 (6-22); Bilirubin Total 0.8 mg/dL (0.2-1.3); Blood Urea Nitrogen 21 mg/dL (7-17); Calcium 8.9 mg/dL (8.4-10.2); Carbon Dioxide 23 mmol/L (22-32); Chloride 103 mmol/L (98-107); Estimated Glomerular Filt Rate > 60 mL/min (>60); Globulin 2.7 g/dL (1.7-4.1); Glucose 128 mg/dL (70-99); HEMOLYSIS < 15 (0-50); Magnesium 1.9 mg/dL (1.6-2.3); Potassium 3.5 mmol/L (3.4-5.1); Sodium 136 mmol/L (137-145); Total Protein 6.2 g/dL (6.3-8.2)
[2024-12-03] MEDS: cefTRIAXone 1,000 MG in SODIUM CHLORIDE 0.9% 100 ML 200 MG IV (09:27)
[2024-12-03] MEDS: SODIUM CHLORIDE 0.9% 1,000 ML 100 ML IV ×2 (09:27→22:23)
--- NOTE | 2024-12-03 10:12 | PC.RNWOUND ---
Ostomy Nurse Consult Note Pateint sitting up, alert with her . They said they understood that there was a possibility that patient needed a colostomy. They do not know of anyone that has had an ostomy before. Reviewed the [facility] New Patient guide regarding what a colostomy is. Also gave them the [employer] Pre-op kit. Patient and her verbalized understanding of the need for a colostomy. Pre-op marked patient: Marked in Left Upper Quadrant within the Rectus Muscles and within the patient field of vision. Covered marking with a tagaderm. Left teaching materials in patient's room for further education. Patient and discussed possibly having patient recover at their home in [place] vs [facility]. I will speak to the discharge Planners. Patient most likely will need home health services upon discharge and follow up with an ostomy nurse. I will follow up with patient post surgery for stoma assessment and patient education.
--- NOTE | 2024-12-03 10:40 | CM.DPC ---
DCP Cont. Reviewed EMR and team rounds for status updates. Plan is for surgery today. Pt will need Home Health ordered at time of d/c, however at this time it's unclear as to whether that will be on [place] or down in [place], at their other home. Will plan to f/u with pt on Saturday to confirm preference for HH agency and send referral/orders at that time.
[2024-12-03] MEDS: HYDROMORPHONE 0.5 MG INJ IV (12:48)
[2024-12-03] MEDS: LACTATED RINGERS 1,000 ML 42 ML IV (16:16)
--- NOTE | 2024-12-03 16:20 | P.PN_ITS ---
Subjective Subjective Date Patient Seen: 12/03/24 Time Patient Seen: 16:21 Interval history: Teagan has not made much progress. She is still distended and nauseous. Exam Vital Signs (past 8 hours): - 12/03/24 10:45 12/03/24 16:07 Temperature 98.2 F 98.0 F Pulse Rate 82 77 Respiratory Rate 16 16 Blood Pressure 151/69 H 150/72 H Pulse Oximetry 96 95 Oxygen Delivery Method Room Air Oxygen Flow Rate 0 Oxygen Delivery Method Room Air Oxygen Flow Rate 0 Narrative Exam Narrative: Abdomen distended and tender to percussion in all quadrants Objective Labs 12/03/24 08:38 12/03/24 08:38 Labs: Laboratory Results - last 24 hr 12/03/24 08:38 WBC 5.3 D RBC 3.89 L Hgb 12.8 Hct 37.6 MCV 96.7 MCH 33.0 MCHC 34.1 RDW 14.0 Plt Count 274 Neut % (Auto) 69.8 Lymph % (Auto) 9.3 L [place] % (Auto) 20.7 H Eos % (Auto) 0.1 L Baso % (Auto) 0.1 Neut # (Auto) 3700 Lymph # (Auto) 500 L [place] # (Auto) 1100 H Eos # (Auto) 0 Baso # (Auto) 0 PT 15.1 H INR 1.3 APTT 27 Sodium 136 L Potassium 3.5 Chloride 103 Carbon Dioxide 23 BUN 21 H Creatinine 0.64 Estimated GFR > 60 BUN/Creatinine Ratio 32.8 H Glucose 128 H Calcium 8.9 Magnesium 1.9 Total Bilirubin 0.8 AST 37 H ALT 20 Alkaline Phosphatase 112 Total Protein 6.2 L Albumin 3.5 Globulin 2.7 Albumin/Globulin Ratio 1.3 PFSH Medical History Lymphadenopathy Dysarthria History of adenomatous polyp of colon Macular drusen Refractive error Surgical History S/P removal of right ovary Social History household members: spouse Smoking Status: Current some day smoker alcohol intake: current Assessment & Plan Assessment and plan (1) Large bowel obstruction: Status: Acute Plan I explained to Teagan that since she was not progressing I recommend we proceed to the operating room. I explained that there is a possibility that her obstruction could be from obstructing colon cancer in the sigmoid colon. If it appears that it was a cancer I would attempt to perform a diverting loop colostomy upstream of the blockage of possible so she could decompress and then we could come back when the condition is more optimal for an oncological resection. I will start with a laparoscopic however there is a high chance that we would have to convert to an exploratory laparotomy if there is significant dilation of the proximal colon. She would like to proceed. Time-Based Coding :: [TOTAL MINUTES] spent with patient and on the chart (including review of chart, obtaining history, exam, reviewing outside data, placing orders, documenting exam and treatment plan, and counseling patient) on [DATE]. Quality VTE Deep Vein Thrombosis/Pulmonary Embolism Present on Admission: No PROFEE Vein Pumper Document charge(s): No
[2024-12-03] MEDS: BUPIVACAINE 0.5% W/ EPI (PF) 30 ML VIAL INJ (17:14)
--- NOTE | 2024-12-03 17:37 | PM.PN.1 ---
Subjective Subjective Interval history: Summary: She was an 84-year-old female who presented with abdominal pain and distention. She was evidence of distal sigmoid colitis and colonic dilation. She was not really improving in surgery is following. There is a possibility of distal obstruction due to either a diverticular stricture or colitis. Unfortunately she has not made much progress or improvement, and surgery planning on surgery later today. S: Some small clear watery stools per patient, still nauseous and feels distended. Exam Vital Signs (past 8 hours): - 12/03/24 10:45 12/03/24 16:07 Temperature 98.2 F 98.0 F Pulse Rate 82 77 Respiratory Rate 16 16 Blood Pressure 151/69 H 150/72 H Pulse Oximetry 96 95 Oxygen Delivery Method Room Air Oxygen Flow Rate 0 Oxygen Delivery Method Room Air Oxygen Flow Rate 0 Narrative Exam Narrative: NAD, alert and oriented. Fluent speech. Lungs are clear, normal rate and effort. Heart is regular, no murmur gallop or rub. Abdomen is distended, hypertympanic, hyperactive bowel tones. Minimal diffuse tenderness today. Extremities are free of edema. Objective Labs 12/03/24 08:38 12/03/24 08:38 Labs: Laboratory Results - last 24 hr 12/03/24 08:38 WBC 5.3 D RBC 3.89 L Hgb 12.8 Hct 37.6 MCV 96.7 MCH 33.0 MCHC 34.1 RDW 14.0 Plt Count 274 Neut % (Auto) 69.8 Lymph % (Auto) 9.3 L [place] % (Auto) 20.7 H Eos % (Auto) 0.1 L Baso % (Auto) 0.1 Neut # (Auto) 3700 Lymph # (Auto) 500 L [place] # (Auto) 1100 H Eos # (Auto) 0 Baso # (Auto) 0 PT 15.1 H INR 1.3 APTT 27 Sodium 136 L Potassium 3.5 Chloride 103 Carbon Dioxide 23 BUN 21 H Creatinine 0.64 Estimated GFR > 60 BUN/Creatinine Ratio 32.8 H Glucose 128 H Calcium 8.9 Magnesium 1.9 Total Bilirubin 0.8 AST 37 H ALT 20 Alkaline Phosphatase 112 Total Protein 6.2 L Albumin 3.5 Globulin 2.7 Albumin/Globulin Ratio 1.3 PFSH Medical History Lymphadenopathy Dysarthria History of adenomatous polyp of colon Macular drusen Refractive error Surgical History S/P removal of right ovary Social History household members: spouse Smoking Status: Current some day smoker alcohol intake: current Assessment & Plan Assessment & Plan narrative: 1. Possible ischemic colitis, present on admission and active. 2. Large bowel obstruction, present on admission and persistent. 3. Probable volume depletion, present on admission and active. 4. Dysarthria, present on admission and stable. Plan: -IV fluids with normal saline. -NPO -continue IV antibiotics -Surgery planned for later today. Discussed with Dr. Tovar today. Dispo: Will likely be in the hospital multiple more days to recover after above bowel surgery with likely need for ostomy. Time-Based Coding :: [TOTAL MINUTES] spent with patient and on the chart (including review of chart, obtaining history, exam, reviewing outside data, placing orders, documenting exam and treatment plan, and counseling patient) on [DATE]. Quality VTE Deep Vein Thrombosis/Pulmonary Embolism Present on Admission: No
[2024-12-03] MEDS: BUPIVACAINE LIPOSOME 266 MG/20 ML VIAL INJ (19:24)
--- NOTE | 2024-12-03 20:06 | SUR.OPER ---
2006 TIMEOUT FOR A-LINE PLACEMENT
--- NOTE | 2024-12-03 20:15 | SUR.OPER ---
2014 TIME OUT COMPLETED FOR CENTRAL LINE PLACEMENT
--- NOTE | 2024-12-03 20:32 | SUR.OPER ---
A-LINE PLACED TO LEFT WRIST BY DR.K. RESENDEZ IN OR SUITE
--- NOTE | 2024-12-03 20:42 | PM.OP.1 ---
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 She was started on antibiotics and had some passage of stool but remain distended and nauseous. She was then consented for a diagnostic laparoscopy, exploratory laparotomy and possible stoma. The patient was brought to the operating room and placed on the table in the supine position. A Rashid catheter was placed. The abdomen was prepped and draped in the usual fashion. The initial plan was to start by placing a camera into the abdomen. A 1 cm infraumbilical incision was created and carried down to the fascia. The anterior sheath was scored with cautery. The posterior sheath and peritoneum were grasped between clamps and divided with Metzenbaum scissors. Immediately upon entering the peritoneal cavity air was noted to escape from the abdomen and there was a smell of stool. We then converted to an exploratory laparotomy with a low midline incision that extended from 3 fingerbreadths above the umbilicus to the pubis. A pinhole perforation was found in the cecum. There was no gross contamination in the abdomen is suggesting a very recent perforation. We mobilized the cecum and performed an ileocecectomy by dividing the terminal ileum and the mid ascending colon with the linear cutting stapler using blue loads. The mesentery was taken with a LigaSure. We then placed her in Trendelenburg and began to explore the pelvis. The point of obstruction appeared to be from the rectosigmoid junction to the mid rectum. This portion of the colon was rather contracted and firm however not rock hard. The colon was plastered to the left fallopian tube and the ovary was not visible. The white line of [place] was divided above the area of obstruction and dissection was carried down into the pelvis. The left ureter was quite adherent to this segment of colon and was carefully dissected away from the colon using Metzenbaum scissors. The firm, thickened irregular portion of the rectum seemed to extend down below the peritoneal reflection to the mid rectum or even possibly the distal rectum. At this point a decision was made to leave the sigmoid and rectum alone and focus on the immediate acute problem by bringing out an end ileostomy and a mucous fistula of the ascending colon. We created a stoma in the right upper quadrant through the right rectus muscle. The end of the ileum and the ascending colon were brought through the stoma. We then closed the midline incision with a running 0 PDS reinforced by multiple interrupted 0 Vicryl internal retention sutures. The skin was closed with amber. We then matured the end ileostomy and mucous fistula in a Dulce Maria fashion. The inner wall of the ileum and ascending colon were sewn together. A colostomy appliance was applied. A midline dressing was applied. The patient was brought to ICU intubated because of the late hour. Specimen: Terminal ileum and cecum EBL: 25 mL Catarino MAN provided assistance with exposure, retraction and closure of incisions. Complications: none Post-operative Condition: stable Disposition: PACU
--- NOTE | 2024-12-03 20:44 | DI.RAD.S_ITS ---
PROCEDURE: XR CHEST 1V INDICATIONS: intubated, R IJ central line TECHNIQUE: One view of the chest was acquired. COMPARISON: [facility] ([place]), CR, XR CHEST 2V, 03/19/2022, 15:07. FINDINGS: Surgical changes and devices: Endotracheal tube tip projects over the midthoracic trachea. Right IJ central venous catheter tip projects over the low SVC. Lungs and pleura: Lungs are clear. No pleural effusions or pneumothorax. Mediastinum: Mediastinal contours appear normal. Heart size is normal. Bones and chest wall: No suspicious bony lesions. Overlying soft tissues appear unremarkable. IMPRESSION: Right IJ central venous catheter tip projects over the low SVC. Endotracheal tube tip projects over the midthoracic trachea. Dictated by: Chase Aguilera M.D. on 12/03/2024 at 21:20 Approved by: Chase Aguilera M.D. on 12/03/2024 at 21:21
--- NOTE | 2024-12-03 20:57 | SUR.OPER ---
2055 REPORT TO BIOLOGICAL TECHNICIAN FELICIA REN RN AND FELICIA KOENIG TO ICU WITH ANESTHESIA AND WILL GIVE BEDSIDE REPORT
[2024-12-03] MEDS: propofoL 1,000 MG/100 ML VIAL 10.206 MG IV (21:15)
[2024-12-03] MEDS: NOREPINEPHRINE BITARTRATE/D5W 4 MG/250 ML PLAST..BAG 21.262 MG IV (21:15)
--- NOTE | 2024-12-03 21:43 | SUR.PHASEI ---
late entry 2055: Patient transferred directly to ICU room 230 due to intubation and hypotension; central line and arterial line placed by anesthesia provider prior to transport. Patient to ICU on full monitoring and oxygen at 15 liters by BVM; Bedside report given to ICU nurse. RT to bedside on arrival with vent. Campbell in room with patient.
--- NOTE | 2024-12-03 21:46 | SUR.PHASEI ---
ASSISTANT TO THE PRESIDENT recovering patient in room 230 until ICU team settles patient in.
[2024-12-03 22:29] LABS: Base Excess ABG -1.3 mmol/L (-2-3); Blood Gas Collection Site Arterial Line; Blood Gas Mode Assist Cont Ventilat; Delivery System Adult Ventilator; HCO3 ABG 23 mmol/L (23-27); Oxygen Saturation ABG 98 % (95-100); PCO2 ABG 38.3 mmHg (35-45); PEEP 5; PO2 ABG 105 mmHg (80-100); Respiratory Rate 12; TCO2 ABG 23 mmol/L (23-27); pH ABG 7.39 (7.35-7.45)
[2024-12-03] MEDS: ACETAMINOPHEN IV 1,000 MG/100 ML VIAL 400 MG IV (22:36)
--- NOTE | 2024-12-03 22:54 | RT ---
pt ABG was Po2 of 105 turned her o2 down to 24 from 32
[2024-12-03] MEDS: fentaNYL 1,000 MCG in DEXTROSE 5% IN WATER 230 ML 9.922 MCG IV (23:05)
[2024-12-04] VITALS (65 sets, daily range): BP systolic 94–173; BP diastolic 50–72; PULSE 66–86; RESP 12–35; TEMP 36.6–37.3; O2SAT 92–100
--- NOTE | 2024-12-04 02:19 | PC.NURSE ---
Pt arrived in floor @ 2114, bedside report provided by SSAS DEVELOPER. Running norepi drip titrated for MAP of 65, propofol and fentanyl drips titrated throughout shift (see SEP) @ 2229 ABG results with PAO2 105, FiO2 adjusted from 35 to 24. Peep of 5, RR 12, TV 420. Urine output from 5331-0908 150 ml.
[2024-12-04] MEDS: metroNIDAZOLE 500 MG/100 ML PIGGYBACK 100 MG IV ×3 (03:16→20:15)
[2024-12-04 05:49] LABS: Add Manual Diff / Slide Review NO; Basophils Absolute Auto 0 /uL (0-100); Basophils Percent Auto 0.2 % (0-2); Eosinophils Absolute Auto 0 /uL (0-450); Eosinophils Percent Auto 0.1 % (2-4); Hematocrit 34.1 % (36-46); Hemoglobin 11.8 g/dL (12.0-16.0); Lymphocytes Absolute Auto 600 /uL (1100-4500); Lymphocytes Percent Auto 9.2 % (25-40); Mean Corpuscular HGB Conc 34.6 % (30-36); Mean Corpuscular Hemoglobin 33.3 PG (26-34); Mean Corpuscular Volume 96.2 fL (80-100); Monocytes Absolute Auto 700 /uL (0-900); Monocytes Percent Auto 10.6 % (3-14); Neutrophils Absolute Auto 5000 /uL (1500-7000); Neutrophils Percent Auto 79.9 % (50-75); Platelet Count 265 X10^3/uL (150-400); Red Blood Cell Count 3.55 X10^6/uL (4.0-5.2); Red Cell Distribution Width 13.8 % (11.6-14.8); White Blood Cell Count 6.3 X10^3/uL (4.5-11.0)
[2024-12-04 06:00] LABS: Alanine Aminotransferase 14 IU/L (<35); Albumin 2.3 g/dL (3.5-5.0); Alkaline Phosphatase 72 U/L (38-126); Aspartate Aminotransferase 25 IU/L (14-36); BUN Creatinine Ratio 36.7 (6-22); Bilirubin Total 0.4 mg/dL (0.2-1.3); Blood Urea Nitrogen 22 mg/dL (7-17); Calcium 7.9 mg/dL (8.4-10.2); Carbon Dioxide 27 mmol/L (22-32); Chloride 105 mmol/L (98-107); Estimated Glomerular Filt Rate > 60 mL/min (>60); Globulin 2.4 g/dL (1.7-4.1); Glucose 163 mg/dL (70-99); HEMOLYSIS < 15 (0-50); Magnesium 1.8 mg/dL (1.6-2.3); Potassium 3.5 mmol/L (3.4-5.1); Sodium 135 mmol/L (137-145); Total Protein 4.7 g/dL (6.3-8.2)
--- NOTE | 2024-12-04 06:15 | DI.RAD.S_ITS ---
PROCEDURE: XR CHEST 1V INDICATIONS: Intubated TECHNIQUE: One view of the chest was acquired. COMPARISON: [facility], CR, XR CHEST 1V, 12/03/2024, 20:54. [facility] ([place]), CR, XR CHEST 2V, 03/19/2022, 15:07. FINDINGS: Surgical changes and devices: Endotracheal tube tip 5.2 cm above krystina. Right internal jugular vein approach central venous catheter distal tip overlying the cavoatrial junction. Right upper quadrant surgical clips. Lungs and pleura: Lungs are clear. No pleural effusions or pneumothorax. Mediastinum: Aortic arch calcifications. Mediastinal contours appear normal. Heart size is normal. Bones and chest wall: No suspicious bony lesions. Overlying soft tissues appear unremarkable. IMPRESSION: 1. Support devices in unchanged position. 2. No acute cardiothoracic process. Dictated by: Yair Guadarrama M.D. on 12/04/2024 at 10:18 Approved by: Yair Guadarrama M.D. on 12/04/2024 at 10:20
[2024-12-04] MEDS: CHLORHEXIDINE GLUCONATE 15 ML CUP PO (06:16)
[2024-12-04] MEDS: propofoL 1,000 MG/100 ML VIAL 8.505 MG IV (06:20)
--- NOTE | 2024-12-04 08:21 | PM.PROC.1 ---
Procedures Date/Time Date of procedure: 12/03/24 Time of procedure: 20:06 Arterial Line Time out performed: Yes (20:06) Size (Gauge): 20 Technique used: other (US guidance) Post-Procedure: dry sterile dressing placed Patient tolerated procedure: Well Complications: none Site: left and radial Additional comments: Done in OR at end of case due to pt's pressor requirement
--- NOTE | 2024-12-04 08:22 | PM.PROC.1 ---
Procedures Date/Time Date of procedure: 12/03/24 Time of procedure: 20:14 Arterial Line Size (Gauge): 20 Central Line Placement Time out performed: Yes (20:14) Patient placed on monitor/pulse ox: Yes (Under GA) MD prep: mask, gown, gloves and other (Cap) Central line prep: Chlorhexidine scrub and sterile drapes applied Local anesthesia used: other anesthetic (Pt under GA) Ultrasound used for placement: Yes Central line lumen inserted: triple Post procedure: sutured in place, good blood return, all ports aspirated, flushed, capped and sterile dressing applied Post procedure x-ray: tip of catheter in good position and no pneumothorax seen Patient tolerated procedure: well Complications: none Additional comments: Placed in OR at end of case due to pt's pressor requirement.
[2024-12-04 08:25] LABS: Add Manual Diff / Slide Review NO; Basophils Absolute Auto 0 /uL (0-100); Basophils Percent Auto 0.2 % (0-2); Eosinophils Absolute Auto 0 /uL (0-450); Hematocrit 35.6 % (36-46); Hemoglobin 12.2 g/dL (12.0-16.0); Lymphocytes Absolute Auto 800 /uL (1100-4500); Lymphocytes Percent Auto 11.5 % (25-40); Mean Corpuscular HGB Conc 34.2 % (30-36); Mean Corpuscular Hemoglobin 32.6 PG (26-34); Mean Corpuscular Volume 95.3 fL (80-100); Monocytes Absolute Auto 700 /uL (0-900); Monocytes Percent Auto 9.4 % (3-14); Neutrophils Absolute Auto 5700 /uL (1500-7000); Neutrophils Percent Auto 78.9 % (50-75); Platelet Count 279 X10^3/uL (150-400); Red Blood Cell Count 3.73 X10^6/uL (4.0-5.2); Red Cell Distribution Width 14.2 % (11.6-14.8); White Blood Cell Count 7.3 X10^3/uL (4.5-11.0)
[2024-12-04] MEDS: HYDROMORPHONE 0.5 MG INJ IV (08:26)
[2024-12-04 08:34] LABS: Alanine Aminotransferase 15 IU/L (<35); Albumin 2.5 g/dL (3.5-5.0); Alkaline Phosphatase 81 U/L (38-126); Aspartate Aminotransferase 26 IU/L (14-36); BUN Creatinine Ratio 33.3 (6-22); Bilirubin Total 0.5 mg/dL (0.2-1.3); Blood Urea Nitrogen 21 mg/dL (7-17); Calcium 8.2 mg/dL (8.4-10.2); Carbon Dioxide 23 mmol/L (22-32); Chloride 106 mmol/L (98-107); Estimated Glomerular Filt Rate > 60 mL/min (>60); Globulin 2.6 g/dL (1.7-4.1); Glucose 163 mg/dL (70-99); HEMOLYSIS < 15 (0-50); Potassium 3.8 mmol/L (3.4-5.1); Sodium 134 mmol/L (137-145); Total Protein 5.1 g/dL (6.3-8.2)
--- NOTE | 2024-12-04 09:04 | RT ---
At bedside for extubation, pt suctioned above and below cuff, leak noted and pt awake with no distress noted. Et tube pulled and pt coughed. Pt placed on 2 lpm nc sao2@98%. at bedside and pt toni well with no stridor or distress noted.
--- NOTE | 2024-12-04 10:19 | PC.RNWOUND ---
Ostomy Nurse Consult Note: Patient in bed with at her side. She was recently extubated. She is speaking and is alert and oriented. Assess stoma, appliance is leaking. Removed appliance. Stomas (ileostomy and mucus fistula) are pink/red and edematous. Measures 40mm and budding above skin level at 1.0. Sutures intact. Stoma produced some soft stool mixed with liquid brown stool, aprox. 50cc. Adriana-stomal skin intact. Midline dressing intact. Replaced ostomy appliance with a coloplast two piece appliance and an maria luz ring. was at the bedside while I changed the appliance and he did very well. Patient is feeling hungry and said that her pain in better than the pain she had yesterday. I will follow up with patient on December 07.
[2024-12-04] MEDS: cefTRIAXone 1,000 MG in SODIUM CHLORIDE 0.9% 100 ML 200 MG IV (10:23)
[2024-12-04] MEDS: HEPARIN 5,000 UNIT/ML VIAL 5000 UNIT SUBCUT ×2 (10:23→20:15)
[2024-12-04] MEDS: SODIUM CHLORIDE 0.9% 1,000 ML 100 ML IV (10:24)
--- NOTE | 2024-12-04 13:39 | DIET.CONS2 ---
Dietary Inpatient Consultation Note Admission Date: 11/30/2024 11:27 Pt s/p colostomy at acending colon r/t large bowel obstruction at level of sigmoid/rectal junction. RD consulted for NPO on vent status. Pt extubated today and was able to state she was hungry. Pt worked with ostomy nurse today and will do again Saturday. Diet: 11/30/24 13:48 NPO Diet Diet Modifications: PATIENT MAY HAVE WATER AND ICE CHIPS. DRINK SLOWLY NPO Type: Strict RD f/u when pt eating and appropriate for diet education. Electronically Signed by: Phoebe Courtney 12/04/24 13:39 Clinical Dietitian [address] [id number]
--- NOTE | 2024-12-04 13:45 | CM.DPNOTE ---
DCP Continued: Reviewed EMR and team rounds for pt?s medical status. Patient is s/p ileostomy. Per hospitalist, plan is to manage pain and continue with ostomy care/recovery. DCP entered room, introduced self and role. Patient was found in bed, alert and oriented. Present in the room is pt's spouse, Jose. Per pt and spouse, they are understanding that patient might not be cleared for another week and they are working with neurological surgery teacher on how to manage post-discharge. DCP discussed home health referrals upon discharge, pt and spouse agree a referral is necessary but they are not sure which home they will discharge to - they have a home on [facility] as well as in [place]. Per spouse, [place] is most likely but they have not fully discussed this yet. Pt and spouse were provided with CM phone number if they have further comments or questions - noted that CM team will likely check in after a few days if they have reached a decision to make proper referrals. Plan: Anticipating dc home in a few days or when medically cleared, CM Team following for home health referral. KAM Moody
--- NOTE | 2024-12-04 15:32 | P.PN_ITS ---
Subjective Subjective Date Patient Seen: 12/04/24 Time Patient Seen: 15:22 Interval history: Patient remains sore. Tolerated extubation this morning. Pain control adequate. Exam Vital Signs (past 8 hours): - 12/04/24 07:45 12/04/24 07:45 12/04/24 08:00 Temperature Pulse Rate 79 73 Respiratory Rate 35 H 22 Blood Pressure 133/61 Pulse Oximetry 99 97 12/04/24 08:00 12/04/24 08:10 12/04/24 08:15 Temperature Pulse Rate 85 Respiratory Rate 33 H Blood Pressure 130/60 Pulse Oximetry 98 96 12/04/24 08:15 12/04/24 08:30 12/04/24 08:30 Temperature Pulse Rate 75 Respiratory Rate 20 Blood Pressure 142/63 H 127/53 L Pulse Oximetry 96 12/04/24 08:45 12/04/24 08:45 12/04/24 09:00 Temperature Pulse Rate 77 Respiratory Rate 25 H Blood Pressure 127/58 L 119/56 L Pulse Oximetry 97 12/04/24 09:00 12/04/24 10:00 12/04/24 10:00 Temperature Pulse Rate 72 75 Respiratory Rate 22 18 Blood Pressure 127/58 L Pulse Oximetry 95 98 12/04/24 10:15 12/04/24 10:15 12/04/24 10:30 Temperature Pulse Rate 80 Respiratory Rate 23 Blood Pressure 137/63 129/56 L Pulse Oximetry 97 12/04/24 10:30 12/04/24 10:45 12/04/24 10:45 Temperature Pulse Rate 75 75 Respiratory Rate 20 15 Blood Pressure 133/59 L Pulse Oximetry 95 97 12/04/24 11:00 12/04/24 11:00 12/04/24 11:15 Temperature Pulse Rate 74 75 Respiratory Rate 19 20 Blood Pressure 124/60 Pulse Oximetry 94 95 12/04/24 11:15 12/04/24 11:30 12/04/24 11:30 Temperature Pulse Rate 76 Respiratory Rate 19 Blood Pressure 127/60 132/60 Pulse Oximetry 94 12/04/24 11:48 12/04/24 11:48 12/04/24 12:00 Temperature Pulse Rate 76 75 Respiratory Rate 18 17 Blood Pressure 129/59 L Pulse Oximetry 97 95 12/04/24 12:00 12/04/24 12:15 12/04/24 12:15 Temperature Pulse Rate 76 Respiratory Rate 15 Blood Pressure 142/65 H 114/58 L Pulse Oximetry 95 12/04/24 12:30 12/04/24 12:30 12/04/24 12:45 Temperature Pulse Rate 75 78 Respiratory Rate 17 20 Blood Pressure 121/56 L Pulse Oximetry 95 95 12/04/24 12:45 12/04/24 13:00 12/04/24 13:00 Temperature 97.9 F Pulse Rate 77 Respiratory Rate 18 Blood Pressure 124/57 L Pulse Oximetry 96 12/04/24 13:00 12/04/24 13:16 12/04/24 13:16 Temperature Pulse Rate 75 Respiratory Rate 20 Blood Pressure 173/72 H 123/61 Pulse Oximetry 96 12/04/24 13:30 12/04/24 14:00 12/04/24 14:00 Temperature Pulse Rate 75 75 Respiratory Rate 20 19 Blood Pressure 126/60 Pulse Oximetry 95 96 Fraction of Inspired Oxygen 40 Oxygen Delivery Method Mechanical Ventilation Oxygen Flow Rate 4 Narrative Exam Narrative: Lungs are clear to auscultation. Heart has a regular rate and rhythm with no murmur or gallop. Abdomen is mildly distended. There is a viable ostomy in the right lower quadrant. Bowel sounds are present. Dressing is dry. Objective Labs 12/04/24 08:01 12/04/24 08:01 Labs: Laboratory Results - last 24 hr 12/03/24 12/04/24 12/04/24 22:26 05:37 08:01 WBC 6.3 7.3 RBC 3.55 L 3.73 L Hgb 11.8 L 12.2 Hct 34.1 L 35.6 L MCV 96.2 95.3 MCH 33.3 32.6 MCHC 34.6 34.2 RDW 13.8 14.2 Plt Count 265 279 Neut % (Auto) 79.9 H 78.9 H Lymph % (Auto) 9.2 L 11.5 L [place] % (Auto) 10.6 9.4 Eos % (Auto) 0.1 L 0.0 L Baso % (Auto) 0.2 0.2 Neut # (Auto) 5000 5700 Lymph # (Auto) 600 L 800 L [place] # (Auto) 700 700 Eos # (Auto) 0 0 Baso # (Auto) 0 0 ABG Sample Site Arterial line ABG pH 7.39 ABG pCO2 38.3 ABG pO2 105 H ABG HCO3 23 ABG Total CO2 23 ABG O2 Saturation 98 ABG Base Excess -1.3 Thaddeus Test N/a Respiration Rate 12 O2 Delivery Device Adult ventilator Mode of Support Assist cont ventilat FiO2 % 40 % PEEP or CPAP 5 Sodium 135 L 134 L Potassium 3.5 3.8 Chloride 105 106 Carbon Dioxide 27 23 BUN 22 H 21 H Creatinine 0.60 0.63 Estimated GFR > 60 > 60 BUN/Creatinine Ratio 36.7 H 33.3 H Glucose 163 H 163 H Calcium 7.9 L 8.2 L Magnesium 1.8 Total Bilirubin 0.4 0.5 AST 25 26 ALT 14 15 Alkaline Phosphatase 72 81 Total Protein 4.7 L 5.1 L Albumin 2.3 L 2.5 L Globulin 2.4 2.6 Albumin/Globulin Ratio 1.0 1.0 PFSH Medical History Lymphadenopathy Dysarthria History of adenomatous polyp of colon Macular drusen Refractive error Surgical History S/P removal of right ovary Social History household members: spouse Smoking Status: Current some day smoker alcohol intake: current Assessment & Plan Assessment and plan (1) Large bowel obstruction: Status: Acute Plan Await return of GI function. Supportive care until that point. Ultimately the nature of her colonic obstruction we will need to be clarified. Time-Based Coding :: [TOTAL MINUTES] spent with patient and on the chart (including review of chart, obtaining history, exam, reviewing outside data, placing orders, documenting exam and treatment plan, and counseling patient) on [DATE]. 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
[2024-12-04] MEDS: ACETAMINOPHEN 325 MG TABLET 650 MG PO ×2 (15:34→20:37)
--- NOTE | 2024-12-04 16:29 | PM.PN.1 ---
Subjective Subjective Interval history: Summary: She was an 84-year-old female who presented with abdominal pain and distention. She was evidence of distal sigmoid colitis and colonic dilation. 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 She was brought up from PACU to the ICU still intubated due to hypotension and pressor requirements. She was quickly extubated this morning, weaned from levophed this afternoon. She is now stable for the regular floor this afternoon. Her pain is currently controlled. She is still slightly nauseous. Exam Vital Signs (past 8 hours): - 12/04/24 08:30 12/04/24 08:30 12/04/24 08:45 Temperature Pulse Rate 75 77 Respiratory Rate 20 25 H Blood Pressure 127/53 L Pulse Oximetry 96 97 12/04/24 08:45 12/04/24 09:00 12/04/24 09:00 Temperature Pulse Rate 72 Respiratory Rate 22 Blood Pressure 127/58 L 119/56 L Pulse Oximetry 95 12/04/24 10:00 12/04/24 10:00 12/04/24 10:15 Temperature Pulse Rate 75 Respiratory Rate 18 Blood Pressure 127/58 L 137/63 Pulse Oximetry 98 12/04/24 10:15 12/04/24 10:30 12/04/24 10:30 Temperature Pulse Rate 80 75 Respiratory Rate 23 20 Blood Pressure 129/56 L Pulse Oximetry 97 95 12/04/24 10:45 12/04/24 10:45 12/04/24 11:00 Temperature Pulse Rate 75 74 Respiratory Rate 15 19 Blood Pressure 133/59 L Pulse Oximetry 97 94 12/04/24 11:00 12/04/24 11:15 12/04/24 11:15 Temperature Pulse Rate 75 Respiratory Rate 20 Blood Pressure 124/60 127/60 Pulse Oximetry 95 12/04/24 11:30 12/04/24 11:30 12/04/24 11:48 Temperature Pulse Rate 76 76 Respiratory Rate 19 18 Blood Pressure 132/60 Pulse Oximetry 94 97 12/04/24 11:48 12/04/24 12:00 12/04/24 12:00 Temperature Pulse Rate 75 Respiratory Rate 17 Blood Pressure 129/59 L 142/65 H Pulse Oximetry 95 12/04/24 12:15 12/04/24 12:15 12/04/24 12:30 Temperature Pulse Rate 76 75 Respiratory Rate 15 17 Blood Pressure 114/58 L Pulse Oximetry 95 95 12/04/24 12:30 12/04/24 12:45 12/04/24 12:45 Temperature Pulse Rate 78 Respiratory Rate 20 Blood Pressure 121/56 L 124/57 L Pulse Oximetry 95 12/04/24 13:00 12/04/24 13:00 12/04/24 13:00 Temperature 97.9 F Pulse Rate 77 Respiratory Rate 18 Blood Pressure 173/72 H Pulse Oximetry 96 12/04/24 13:16 12/04/24 13:16 12/04/24 13:30 Temperature Pulse Rate 75 75 Respiratory Rate 20 20 Blood Pressure 123/61 Pulse Oximetry 96 95 12/04/24 14:00 12/04/24 14:00 12/04/24 14:30 Temperature Pulse Rate 75 77 Respiratory Rate 19 20 Blood Pressure 126/60 Pulse Oximetry 96 95 12/04/24 15:00 12/04/24 15:00 12/04/24 15:30 Temperature Pulse Rate 82 80 Respiratory Rate 21 21 Blood Pressure 128/58 L Pulse Oximetry 95 96 12/04/24 16:00 12/04/24 16:00 Temperature Pulse Rate 78 Respiratory Rate 22 Blood Pressure 126/62 Pulse Oximetry 96 Fraction of Inspired Oxygen 40 Oxygen Delivery Method Mechanical Ventilation Oxygen Flow Rate 4 Narrative Exam Narrative: NAD, alert and oriented. Fluent speech. Lungs are clear, normal rate and effort. Heart is regular, no murmur gallop or rub. Abdomen is distended, appropriately tender. Extremities are free of edema. Objective Labs 12/04/24 08:01 12/04/24 08:01 Labs: Laboratory Results - last 24 hr 12/03/24 12/04/24 12/04/24 22:26 05:37 08:01 WBC 6.3 7.3 RBC 3.55 L 3.73 L Hgb 11.8 L 12.2 Hct 34.1 L 35.6 L MCV 96.2 95.3 MCH 33.3 32.6 MCHC 34.6 34.2 RDW 13.8 14.2 Plt Count 265 279 Neut % (Auto) 79.9 H 78.9 H Lymph % (Auto) 9.2 L 11.5 L [place] % (Auto) 10.6 9.4 Eos % (Auto) 0.1 L 0.0 L Baso % (Auto) 0.2 0.2 Neut # (Auto) 5000 5700 Lymph # (Auto) 600 L 800 L [place] # (Auto) 700 700 Eos # (Auto) 0 0 Baso # (Auto) 0 0 ABG Sample Site Arterial line ABG pH 7.39 ABG pCO2 38.3 ABG pO2 105 H ABG HCO3 23 ABG Total CO2 23 ABG O2 Saturation 98 ABG Base Excess -1.3 Thaddeus Test N/a Respiration Rate 12 O2 Delivery Device Adult ventilator Mode of Support Assist cont ventilat FiO2 % 40 % PEEP or CPAP 5 Sodium 135 L 134 L Potassium 3.5 3.8 Chloride 105 106 Carbon Dioxide 27 23 BUN 22 H 21 H Creatinine 0.60 0.63 Estimated GFR > 60 > 60 BUN/Creatinine Ratio 36.7 H 33.3 H Glucose 163 H 163 H Calcium 7.9 L 8.2 L Magnesium 1.8 Total Bilirubin 0.4 0.5 AST 25 26 ALT 14 15 Alkaline Phosphatase 72 81 Total Protein 4.7 L 5.1 L Albumin 2.3 L 2.5 L Globulin 2.4 2.6 Albumin/Globulin Ratio 1.0 1.0 PFSH Medical History Lymphadenopathy Dysarthria History of adenomatous polyp of colon Macular drusen Refractive error Surgical History S/P removal of right ovary Social History household members: spouse Smoking Status: Current some day smoker alcohol intake: current Assessment & Plan Assessment & Plan narrative: 1. Septic shock due to cecal perforation, shock not present on admission developed after admission, improving - s/p ex-lap with end ileostomy and mucous fistula on 12/03. Remained intubated due to presumed shock on levophed after surgery. - now improved and off pressors, extubated on POD#1 early AM. - now stable for downgrade - appreciate surgical consultation, advance diet per surgeon. Currently NPO. Await return of bowel function via ileostomy. 2. HTN - hold lisinopril and HCTZ given above sepsis. 3. HLD - resume statin once tolerating a diet Code: DNR, spouse is surrogate decision maker. DVT: can start HSQ Dispo: stable for regular floor. Likely in the hospital for 3-4 more days. Will need PT/OT likely to start tomorrow. I spent 35 minutes providing critical care management this patient. This excludes time spent in performing separately billed procedures. Time-Based Coding :: [TOTAL MINUTES] spent with patient and on the chart (including review of chart, obtaining history, exam, reviewing outside data, placing orders, documenting exam and treatment plan, and counseling patient) on [DATE]. Quality VTE Deep Vein Thrombosis/Pulmonary Embolism Present on Admission: No
[2024-12-04] MEDS: OXYCODONE IR 5 MG TABLET PO ×2 (18:44→20:38)
[2024-12-05] VITALS (21 sets, daily range): BP systolic 112–188; BP diastolic 67–85; PULSE 74–97; RESP 13–24; TEMP 36.3–36.7; O2SAT 92–98
[2024-12-05] MEDS: SODIUM CHLORIDE 0.9% 1,000 ML 100 ML IV ×2 (01:42→12:54)
[2024-12-05] MEDS: metroNIDAZOLE 500 MG/100 ML PIGGYBACK 100 MG IV ×3 (04:09→20:19)
[2024-12-05] MEDS: ONDANSETRON 4 MG/2 ML INJ IV ×2 (04:10→07:50)
[2024-12-05] MEDS: HYDROMORPHONE 0.5 MG INJ IV ×2 (04:39→07:50)
[2024-12-05 05:22] LABS: Add Manual Diff / Slide Review NO; Basophils Absolute Auto 0 /uL (0-100); Basophils Percent Auto 0.1 % (0-2); Eosinophils Absolute Auto 0 /uL (0-450); Eosinophils Percent Auto 0.4 % (2-4); Hematocrit 37.2 % (36-46); Hemoglobin 12.5 g/dL (12.0-16.0); Lymphocytes Absolute Auto 900 /uL (1100-4500); Lymphocytes Percent Auto 9.1 % (25-40); Mean Corpuscular HGB Conc 33.7 % (30-36); Mean Corpuscular Hemoglobin 32.4 PG (26-34); Mean Corpuscular Volume 96.1 fL (80-100); Monocytes Absolute Auto 900 /uL (0-900); Monocytes Percent Auto 9.1 % (3-14); Neutrophils Absolute Auto 8300 /uL (1500-7000); Neutrophils Percent Auto 81.3 % (50-75); Platelet Count 267 X10^3/uL (150-400); Red Blood Cell Count 3.87 X10^6/uL (4.0-5.2); Red Cell Distribution Width 13.9 % (11.6-14.8); White Blood Cell Count 10.2 X10^3/uL (4.5-11.0)
[2024-12-05 05:31] LABS: Alanine Aminotransferase 13 IU/L (<35); Albumin 2.6 g/dL (3.5-5.0); Alkaline Phosphatase 80 U/L (38-126); Aspartate Aminotransferase 30 IU/L (14-36); Bilirubin Total 0.4 mg/dL (0.2-1.3); Blood Urea Nitrogen 18 mg/dL (7-17); Calcium 8.2 mg/dL (8.4-10.2); Carbon Dioxide 27 mmol/L (22-32); Chloride 105 mmol/L (98-107); Estimated Glomerular Filt Rate > 60 mL/min (>60); Globulin 2.7 g/dL (1.7-4.1); Glucose 101 mg/dL (70-99); HEMOLYSIS < 15 (0-50); Magnesium 2.1 mg/dL (1.6-2.3); Potassium 3.6 mmol/L (3.4-5.1); Sodium 137 mmol/L (137-145); Total Protein 5.3 g/dL (6.3-8.2)
[2024-12-05] MEDS: SODIUM CHLORIDE 0.9% FLUSH 10 ML IV ×2 (07:50→20:19)
--- NOTE | 2024-12-05 08:58 | PM.PN.IH.1 ---
Subjective Subjective Date Patient Seen: 12/05/24 Interval history: Feels no worse. Complains of fatigue. Wants to try a liquid diet. Exam Vital Signs (past 8 hours): - 12/05/24 01:00 12/05/24 01:30 12/05/24 02:00 Temperature Pulse Rate 76 75 76 Respiratory Rate 17 18 21 Blood Pressure Pulse Oximetry 92 96 96 Oxygen Delivery Method Oxygen Flow Rate 1 1 1 12/05/24 02:30 12/05/24 02:49 12/05/24 02:49 Temperature Pulse Rate 80 79 Respiratory Rate 15 24 Blood Pressure 138/67 Pulse Oximetry 97 96 Oxygen Delivery Method Oxygen Flow Rate 1 1 12/05/24 02:59 12/05/24 03:00 12/05/24 03:30 Temperature Pulse Rate 80 79 80 Respiratory Rate 14 20 19 Blood Pressure 165/71 H Pulse Oximetry 95 96 96 Oxygen Delivery Method Oxygen Flow Rate 0 1 1 12/05/24 04:00 12/05/24 04:00 12/05/24 04:21 Temperature 97.4 F L Pulse Rate 80 80 79 Respiratory Rate 23 21 23 Blood Pressure 188/85 H Pulse Oximetry 96 95 96 Oxygen Delivery Method Oxygen Flow Rate 1 1 1 12/05/24 04:21 12/05/24 04:30 12/05/24 05:00 Temperature 98.0 F Pulse Rate 80 80 Respiratory Rate 19 17 Blood Pressure 188/85 H Pulse Oximetry 95 95 Oxygen Delivery Method Oxygen Flow Rate 1 1 12/05/24 05:10 12/05/24 05:10 12/05/24 05:30 Temperature Pulse Rate 79 78 Respiratory Rate 23 19 Blood Pressure 157/70 H Pulse Oximetry 95 97 Oxygen Delivery Method Oxygen Flow Rate 1 1 12/05/24 06:00 12/05/24 08:00 12/05/24 08:00 Temperature 97.5 F L Pulse Rate 77 74 Respiratory Rate 18 15 Blood Pressure 171/72 H Pulse Oximetry 97 97 Oxygen Delivery Method Room Air Nasal Cannula Oxygen Flow Rate 1 1 Fraction of Inspired Oxygen 40 Oxygen Delivery Method Room Air,Nasal Cannula Oxygen Flow Rate 1 Narrative Exam Narrative: Lungs are clear to auscultation. No incentive spirometer at bedside. I corrected this and instructed the patient and its use. Heart has a regular rate and rhythm with no murmur or gallop. Abdomen is mildly distended. Dressings are dry. Bowel sounds are present. There is appropriate incisional tenderness. Right lower quadrant functioning viable ostomy with enteric contents and gas in ostomy bag. Objective Labs 12/05/24 05:11 12/05/24 05:11 Labs: Laboratory Results - last 24 hr 12/05/24 05:11 WBC 10.2 RBC 3.87 L Hgb 12.5 Hct 37.2 MCV 96.1 MCH 32.4 MCHC 33.7 RDW 13.9 Plt Count 267 Neut % (Auto) 81.3 H Lymph % (Auto) 9.1 L [place] % (Auto) 9.1 Eos % (Auto) 0.4 L Baso % (Auto) 0.1 Neut # (Auto) 8300 H Lymph # (Auto) 900 L [place] # (Auto) 900 Eos # (Auto) 0 Baso # (Auto) 0 Sodium 137 Potassium 3.6 Chloride 105 Carbon Dioxide 27 BUN 18 H Creatinine 0.58 Estimated GFR > 60 BUN/Creatinine Ratio 31.0 H Glucose 101 H Calcium 8.2 L Magnesium 2.1 Total Bilirubin 0.4 AST 30 ALT 13 Alkaline Phosphatase 80 Total Protein 5.3 L Albumin 2.6 L Globulin 2.7 Albumin/Globulin Ratio 1.0 PFSH Medical History Lymphadenopathy Dysarthria History of adenomatous polyp of colon Macular drusen Refractive error Surgical History S/P removal of right ovary Social History household members: spouse Smoking Status: Current some day smoker alcohol intake: current Assessment & Plan Assessment and plan (1) Large bowel obstruction: Status: Acute Plan Stable postop day 2 from exploratory laparotomy with ileostomy and ascending colonic mucous fistula for cecal perforation. GI function appears to be returning. Advance to clear liquids. Pulmonary toilet. Time-Based Coding :: [TOTAL MINUTES] spent with patient and on the chart (including review of chart, obtaining history, exam, reviewing outside data, placing orders, documenting exam and treatment plan, and counseling patient) on [DATE]. Quality VTE Deep Vein Thrombosis/Pulmonary Embolism Present on Admission: No PROFEE Senior Genetic Counselor Document charge(s): No
[2024-12-05] MEDS: cefTRIAXone 1,000 MG in SODIUM CHLORIDE 0.9% 100 ML 200 MG IV (09:27)
[2024-12-05] MEDS: HEPARIN 5,000 UNIT/ML VIAL 5000 UNIT SUBCUT ×2 (09:27→20:18)
[2024-12-05] MEDS: CITALOPRAM 10 MG TABLET 30 MG PO (09:28)
[2024-12-05] MEDS: ATORVASTATIN 20 MG TABLET PO (09:28)
[2024-12-05] MEDS: OXYCODONE IR 5 MG TABLET PO ×2 (10:56→17:30)
--- NOTE | 2024-12-05 11:10 | PT.IIE ---
Current Diagnoses Vascular disorder of intestine, unspecified (11/30/24) Unspecified intestinal obstruction, unspecified as to partial versus complete obstruction (11/30/24) Surgery Performed Operation Date: 12/03/24 14:45 Actual Procedures p EXPLORATORY LAPAROTOMY, ILEOCECECTOMY, ILEOSTOMY, MUCUS FISTULA - Leon Tovar MD Surgical History (Last Reviewed 12/02/24 @ 07:25 by Thaddeus Castaneda MD) S/P removal of right ovary Medical History (Last Reviewed 12/02/24 @ 07:25 by Thaddeus Castaneda MD) Dysarthria History of adenomatous polyp of colon Lymphadenopathy Macular drusen Refractive error Physical Therapy Inpatient Evaluation/Re-Eval M1 PT/OT-IP Prior Functional Status Start: 12/05/24 12:42 Freq: NEEDED Status: Active Protocol: Document 12/05/24 11:10 AB (Rec: 12/05/24 13:05 AB Desktop) Medical Review Prior Functional Status Medical History Reviewed Yes Diet/Fluid Consistency Clear Liquids Communication able to make needs known; needs time to respond to questions Mobility and Gait pt stated that she was independent with all mobilities and ambulation without AD Social History Household Members spouse Living Arrangements House Number of Stairs To Enter/Railing? pt lives at [facility] but also has a condo in [place]: pt/spouse is not sure where they are going to stay when pt discharges [facility] house: 2 level house but pt stays on main level of the house; ramp to enter [facility] condo: elevator to get in but has 16 steps to get to bedroom level Home Environment Standard Height Toilet,Walk in Shower Home Equipment Straight Cane,Hand Held Shower M2 PT-IP Current Condition Start: 12/05/24 12:42 Freq: NEEDED Status: Active Protocol: Document 12/05/24 11:10 AB (Rec: 12/05/24 13:05 AB Desktop) Physical Therapy Current Condition Current Condition Evaluation Date 12/05/24 Treatment Diagnosis s/p ex-lap with ileostomy; difficulty in walking Onset Date 11/30/24 M3 PT-IP Subjective Start: 12/05/24 12:42 Freq: NEEDED Status: Active Protocol: Document 12/05/24 11:10 AB (Rec: 12/05/24 13:05 AB Desktop) Subjective Physical Therapy Visit Type Type Initial Evaluation Visit Start Time 11:10 Visit Stop Time 12:00 Number of REPRINT SORTER Visits 0 Physical Therapy Visit Comments Patient Comments agreeable to do PT; c/o nausea Therapy Pain Assessment Pain Present Pain Present Denied Pain M4 PT-IP Mobility and Gait Start: 12/05/24 12:42 Freq: NEEDED Status: Active Protocol: Document 12/05/24 11:10 AB (Rec: 12/05/24 13:05 AB Desktop) PT-Bed Mobility Assessment Rolling Type of Rolling Log Rolling Level of Assist Maximal Assistance Supine to Sit Supine to Sit Maximum Assistance,1 Person Assistance,Head of Bed Elevated,Bedrails PT-Transfer Assessment Sit to and From Stand Sit to and from Stand Moderate Assistance,1 Person Assistance,Use of Upper Extremities Equipment Transfer Assistive Device Gait Belt,Front Wheeled Walker Orthotic/Prosthetic Devices or Brace: No Transfers Transfer Destination Chair Transfer Technique ambulated Transfer Ability Level of Assist Moderate Assistance,1 Person Assistance,Use of Upper Extremities Comments Mobility Comments pt in bed. agreed to do PT. spouse arrived. obtained PLOF and home set up. BP: 172/73 GA: 77 O2 sat with O2 on: 98% and at RA 96%. nurse agreed to have supplemental O2 off for now and stated that pt only needs it when she is asleep. educated pt and spouse regarding pt's abdominal precautions and log roll bed mobility. post-op handout provided to pt. pt with c/o nausea with (+) emesis. nurse aware. pt completed log roll supine to sit max A and max cues. HOB elevated due to ongoing nausea and pt's chances of throwing up again. pt able to sit on EOb CGA. sit to stand mod A and ambulated in room ~ 8 ft using FWW mod A and cues. presents with slow shuffling gait. pt ageed to sit up on the chair. positioned pt on the chair. call light and table placed within reach. Left pt with spouse. Gait Assessment Gait Gait Assistance Required: Moderate Assistance,1 Person Assist Distance (Feet) 8 Able to Maintain Weight Bearing Status Yes During Gait Assistive Devices Assistive Device Gait Belt,Front Wheeled Walker Orthotic/Prosthetic Devices or Brace: No Gait Deviations General Gait Pattern Antalgic,Decreased Stride Length,Decreased Feet Clearance Factors Limiting Gait Function Factors Limiting Gait Function Decreased Activity Tolerance, Decreased Strength,Difficulty Following Directions,Limited Range of Motion,Pain,Poor Balance,Poor Safety Awareness, Respiratory Distress PT-Balance Assessment Sitting Balance and Reactions Static Sitting Balance Ability Good Dynamic Sitting Balance Ability Good Standing Balance and Reactions Static Standing Balance Ability Fair Dynamic Standing Balance Ability Fair Device Used FWW M5 PT-IP Objective Assessments Start: 12/05/24 12:42 Freq: NEEDED Status: Active Protocol: Document 12/05/24 11:10 AB (Rec: 12/05/24 13:05 AB Desktop) Orientation Orientation/Cognition Level of Alertness Alert Orientation Name,Place,Situation Language Function Ability Hard of Hearing Safety Awareness Decreased Safety Awareness Memory Description Short Term Impaired Comments slight confusion Gross Range of Motion Lower Extremity ROM Assessment Within Functional Limits Strength Lower Extremity Strength Assessment Within Functional Limits Muscle Tone Muscle Tone WNL Yes M6 PT-IP Treatment Start: 12/05/24 12:42 Freq: NEEDED Status: Active Protocol: Document 12/05/24 11:10 AB (Rec: 12/05/24 13:05 AB Desktop) Physical Therapy Treatment Education Education Provided Precautions,Post-Op Packet, Safety M7 PT-IP Assessment and Plan Start: 12/05/24 12:42 Freq: NEEDED Status: Active Protocol: Document 12/05/24 11:10 AB (Rec: 12/05/24 13:05 AB Desktop) PT Summary Assessment and Plan Potential Rehabilitation Potential Good Status of Condition at Evaluation Evolving Summary Impairments Pain,ROM,Strength,Balance, Coordination,Sensation,Tone, Cognition,Bed Mobility, Transfers,Gait,Activity Tolerance Assessment Summary pt is an 84 y/o F who was admitted for large bowel obstruction and cecal perforation and underwent ex- lap with ileostomy POD 2. pt was intubated during surgery and was just extubated yesterday. pt with abdominal precautions and has ostomy bag . pt requiring max A for bed mobility and mod A for transfers using FWW. pt able to ambulate ~ 8 ft using FWW mod A and cues. pt plans to go home with spouse to assist. pt and spouse are not sure if they are going to stay at their [facility] or at their [facility]. Will conduct caregiver training when appropriate. will continue to asses progress for safe d/c plan. Goals Bed Mobility Goal Standby Assistance Transfer Goal Standby Assistance,Front Wheeled Walker Gait Goal Standby Assistance,Front Wheel Walker Gait Distance 75 Other Goals improve transfers and ambulation using LRAD/without AD ~ 150 ft mod I up/down 16 steps 1 rail SBA Days to Meet Goals 10 Frequency of Treatment Frequency Of Treatment Once a Day Treatment Plan Physical Therapy Treatment Plan Bed Mobility Training,Transfer Training,Gait Training, Therapeutic Exercise,Balance Retraining,Post Op Education, Discharge Planning,Hot or Cold Pack,Neuromuscular Re-ed, Coordination Retraining,Manual Therapy Precautions Abdominal Surgery Precautions Log Roll,Lifting Restrictions, Gait Belt above Incisional Area Recommendations To Nursing Amount of Assist Needed 1 Person Assist Discharge Recommendations PT Discharge Recommendations Home with 28/01 Assist Available,Home Health Equipment Needed for Home Before FWW Discharge Transportation Needs at Discharge Private Vehicle,Wheelchair/ Cabulance - PT assist 1
--- NOTE | 2024-12-05 13:42 | CM.DPC ---
DCP COnt: Per Surgeon, pt to continue with mcqueen until more mobile and ostomy functioning and producing stool and to attempt to reduce pt's nausea and slowly advance her diet as tolerated and not yet stable for discharge today. Afia completed ostomy bedside teach yesterday 12/04 with pt and spouse. Per PT, recommending home with 28/01 and HH. SW met bedside with pt, sleeping soundly, and spouse and he confirms that he was bedside with PT and felt pt did surprisingly well with mobility and their preference remains home when medically stable and they plan of discharging to their [facility] as it is one level and easier to manage as their [place] home is two stories with most on the second floor. Spouse confirms HH RN/PT would be helpful and needed and agreeable to [facility] referral as they are the only agency that covers [facility]. Spouse will provide transport a d/c and likely will need [facility] as well. SW made referral to [facility] to review for likely d/c Mon or Tu this coming week if pt stable. F2F done but not sent yet. Notify TCM group at d/c as pt's PCP is Violetta Marin at [facility]. LAURY Malagon
--- NOTE | 2024-12-05 15:15 | PM.PN.1 ---
Subjective Subjective Interval history: Summary: She was an 84-year-old female who presented with abdominal pain and distention. She was evidence of distal sigmoid colitis and colonic dilation. 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 She was brought up from PACU to the ICU still intubated due to hypotension and pressor requirements. She was quickly extubated and weaned from pressors and downgraded yesterday. She is still mildly bloated, no real changes since yesterday. Wanted to try clears which she is trying this afternoon. No nausea or vomiting thus far but is not very thirsty. Feels tired after therapy. Exam Vital Signs (past 8 hours): - 12/05/24 08:00 12/05/24 08:00 12/05/24 11:30 Temperature 97.5 F L Pulse Rate 74 77 Respiratory Rate 15 Blood Pressure 171/72 H 172/73 H Pulse Oximetry 97 Oxygen Delivery Method Room Air Nasal Cannula Oxygen Flow Rate 1 Fraction of Inspired Oxygen 40 Oxygen Delivery Method Room Air,Nasal Cannula Oxygen Flow Rate 1 Narrative Exam Narrative: NAD, alert and oriented. Fluent speech. Lungs are clear, normal rate and effort. Heart is regular, no murmur gallop or rub. Abdomen is mildly distended, appropriately tender. Extremities are free of edema. Objective Labs 12/05/24 05:11 12/05/24 05:11 Labs: Laboratory Results - last 24 hr 12/05/24 05:11 WBC 10.2 RBC 3.87 L Hgb 12.5 Hct 37.2 MCV 96.1 MCH 32.4 MCHC 33.7 RDW 13.9 Plt Count 267 Neut % (Auto) 81.3 H Lymph % (Auto) 9.1 L [place] % (Auto) 9.1 Eos % (Auto) 0.4 L Baso % (Auto) 0.1 Neut # (Auto) 8300 H Lymph # (Auto) 900 L [place] # (Auto) 900 Eos # (Auto) 0 Baso # (Auto) 0 Sodium 137 Potassium 3.6 Chloride 105 Carbon Dioxide 27 BUN 18 H Creatinine 0.58 Estimated GFR > 60 BUN/Creatinine Ratio 31.0 H Glucose 101 H Calcium 8.2 L Magnesium 2.1 Total Bilirubin 0.4 AST 30 ALT 13 Alkaline Phosphatase 80 Total Protein 5.3 L Albumin 2.6 L Globulin 2.7 Albumin/Globulin Ratio 1.0 PFSH Medical History Lymphadenopathy Dysarthria History of adenomatous polyp of colon Macular drusen Refractive error Surgical History S/P removal of right ovary Social History household members: spouse Smoking Status: Current some day smoker alcohol intake: current Assessment & Plan Assessment & Plan narrative: 1. Septic shock due to cecal perforation, shock not present on admission developed after admission, improving - s/p ex-lap with end ileostomy and mucous fistula on 12/03. Remained intubated due to presumed shock on levophed after surgery. - now improved and off pressors, extubated on POD#1 early AM. - now advanced to clears per surgeon. - appreciate surgical consultation, advance diet per surgeon. - can start PT/OT today. 2. HTN - held lisinopril and HCTZ given above sepsis. will resume lisinopril today. 3. HLD - resume statin, replaced rosuvastatin with atorvastatin 20 mg. Code: DNR, spouse is surrogate decision maker. DVT: can start HSQ Dispo: Inpatient status. Likely in the hospital for 2-3 more days. Continue PT/OT for assessment of home vs SNF. Time-Based Coding :: [TOTAL MINUTES] spent with patient and on the chart (including review of chart, obtaining history, exam, reviewing outside data, placing orders, documenting exam and treatment plan, and counseling patient) on [DATE]. Quality VTE Deep Vein Thrombosis/Pulmonary Embolism Present on Admission: No
[2024-12-05] MEDS: lisinopriL 10 MG TABLET PO (17:30)
[2024-12-06] VITALS (8 sets, daily range): BP systolic 139–159; BP diastolic 64–75; PULSE 70–82; RESP 16–27; TEMP 36.7; O2SAT 94–97
[2024-12-06] MEDS: SODIUM CHLORIDE 0.9% 1,000 ML 100 ML IV ×2 (00:50→12:27)
[2024-12-06] MEDS: metroNIDAZOLE 500 MG/100 ML PIGGYBACK 100 MG IV ×3 (03:16→20:19)
[2024-12-06 05:22] LABS: Add Manual Diff / Slide Review NO; Basophils Absolute Auto 100 /uL (0-100); Basophils Percent Auto 0.5 % (0-2); Eosinophils Absolute Auto 100 /uL (0-450); Eosinophils Percent Auto 1.1 % (2-4); Hematocrit 35.5 % (36-46); Hemoglobin 12.1 g/dL (12.0-16.0); Lymphocytes Absolute Auto 1100 /uL (1100-4500); Mean Corpuscular HGB Conc 34.1 % (30-36); Mean Corpuscular Hemoglobin 32.9 PG (26-34); Mean Corpuscular Volume 96.4 fL (80-100); Monocytes Absolute Auto 1200 /uL (0-900); Monocytes Percent Auto 8.5 % (3-14); Neutrophils Absolute Auto 11500 /uL (1500-7000); Neutrophils Percent Auto 81.9 % (50-75); Platelet Count 265 X10^3/uL (150-400); Red Blood Cell Count 3.68 X10^6/uL (4.0-5.2); Red Cell Distribution Width 13.6 % (11.6-14.8)
[2024-12-06 05:33] LABS: Alanine Aminotransferase 11 IU/L (<35); Albumin 2.6 g/dL (3.5-5.0); Albumin Globulin Ratio 0.9 (1.0-2.8); Alkaline Phosphatase 57 U/L (38-126); Aspartate Aminotransferase 30 IU/L (14-36); BUN Creatinine Ratio 35.4 (6-22); Bilirubin Total 0.7 mg/dL (0.2-1.3); Blood Urea Nitrogen 17 mg/dL (7-17); Carbon Dioxide 26 mmol/L (22-32); Chloride 105 mmol/L (98-107); Estimated Glomerular Filt Rate > 60 mL/min (>60); Globulin 2.9 g/dL (1.7-4.1); Glucose 103 mg/dL (70-99); Sodium 135 mmol/L (137-145); Total Protein 5.5 g/dL (6.3-8.2)
[2024-12-06 05:34] LABS: HEMOLYSIS 113 (0-50); Potassium 4.3 mmol/L (3.4-5.1)
--- NOTE | 2024-12-06 08:21 | P.PN_ITS ---
Subjective Subjective Date Patient Seen: 12/06/24 Interval history: Feels well. Pain control adequate. Tolerant of clears. Exam Vital Signs (past 8 hours): - 12/06/24 05:16 Pulse Rate 72 Respiratory Rate 18 Blood Pressure 151/66 H Pulse Oximetry 95 Fraction of Inspired Oxygen 40 Oxygen Delivery Method Room Air Oxygen Flow Rate 0 Narrative Exam Narrative: Lung-CTA CV-RRR without m/g Abd-soft, appropriate incisional tenderness. BS present. Ostomy functioning and viable. Objective Labs 12/06/24 04:44 12/06/24 04:44 Labs: Laboratory Results - last 24 hr 12/06/24 04:44 WBC 14.0 H RBC 3.68 L Hgb 12.1 Hct 35.5 L MCV 96.4 MCH 32.9 MCHC 34.1 RDW 13.6 Plt Count 265 Neut % (Auto) 81.9 H Lymph % (Auto) 8.0 L [place] % (Auto) 8.5 Eos % (Auto) 1.1 L Baso % (Auto) 0.5 Neut # (Auto) 27016 H Lymph # (Auto) 1100 [place] # (Auto) 1200 H Eos # (Auto) 100 Baso # (Auto) 100 Sodium 135 L Potassium 4.3 Chloride 105 Carbon Dioxide 26 BUN 17 Creatinine 0.48 L Estimated GFR > 60 BUN/Creatinine Ratio 35.4 H Glucose 103 H Calcium 8.0 L Magnesium 2.0 Total Bilirubin 0.7 AST 30 ALT 11 Alkaline Phosphatase 57 Total Protein 5.5 L Albumin 2.6 L Globulin 2.9 Albumin/Globulin Ratio 0.9 L PFSH Medical History Lymphadenopathy Dysarthria History of adenomatous polyp of colon Macular drusen Refractive error Surgical History S/P removal of right ovary Social History household members: spouse Smoking Status: Current some day smoker alcohol intake: current Assessment & Plan Assessment and plan (1) Large bowel obstruction: Status: Acute Plan Doing well POD3. Tolerant of clears but has no particular appetite. Hold at clears for now, advance diet tomorrow. Time-Based Coding :: [TOTAL MINUTES] spent with patient and on the chart (including review of chart, obtaining history, exam, reviewing outside data, placing orders, documenting exam and treatment plan, and counseling patient) on [DATE]. Quality VTE Deep Vein Thrombosis/Pulmonary Embolism Present on Admission: No IH PROFEE Front Desk Team Member Document charge(s): No
[2024-12-06] MEDS: HEPARIN 5,000 UNIT/ML VIAL 5000 UNIT SUBCUT ×2 (09:09→20:19)
[2024-12-06] MEDS: CITALOPRAM 10 MG TABLET 30 MG PO (09:09)
[2024-12-06] MEDS: cefTRIAXone 1,000 MG in SODIUM CHLORIDE 0.9% 100 ML 200 MG IV (09:09)
[2024-12-06] MEDS: lisinopriL 10 MG TABLET PO (09:09)
[2024-12-06] MEDS: ATORVASTATIN 20 MG TABLET PO (09:09)
[2024-12-06] MEDS: SODIUM CHLORIDE 0.9% FLUSH 10 ML IV ×2 (09:10→20:20)
--- NOTE | 2024-12-06 11:57 | PT.IPTN ---
Current Diagnoses Vascular disorder of intestine, unspecified (11/30/24) Unspecified intestinal obstruction, unspecified as to partial versus complete obstruction (11/30/24) Surgery Performed Operation Date: 12/03/24 14:45 Actual Procedures p EXPLORATORY LAPAROTOMY, ILEOCECECTOMY, ILEOSTOMY, MUCUS FISTULA - Leon Tovar MD Physical Therapy Treatment Note M2 PT-IP Current Condition Start: 12/05/24 12:42 Freq: NEEDED Status: Active Protocol: Document 12/05/24 11:10 AB (Rec: 12/05/24 13:05 AB Desktop) Physical Therapy Current Condition Current Condition Evaluation Date 12/05/24 Treatment Diagnosis s/p ex-lap with ileostomy; difficulty in walking Onset Date 11/30/24 M3 PT-IP Subjective Start: 12/05/24 12:42 Freq: NEEDED Status: Active Protocol: Document 12/06/24 11:33 MB (Rec: 12/06/24 11:57 MB Desktop) Subjective Physical Therapy Visit Type Type Treatment Note Visit Start Time 11:33 Visit Stop Time 11:50 Number of QUALITY CONTROL INSPECTOR Visits 0 Physical Therapy Visit Comments Patient Comments Pt presents with confusion. A& O to self and month only. Therapy Pain Assessment Pain Present Pain Present Denied Pain M4 PT-IP Mobility and Gait Start: 12/05/24 12:42 Freq: NEEDED Status: Active Protocol: Document 12/06/24 11:33 MB (Rec: 12/06/24 11:57 MB Desktop) PT-Bed Mobility Assessment Rolling Type of Rolling Roll to Right Level of Assist Contact Guard Assistance Supine to Sit Supine to Sit Contact Guard Assistance,Head of Bed Elevated,Bedrails Scooting Scooting to Edge of Bed Contact Guard Assistance PT-Transfer Assessment Sit to and From Stand Sit to and from Stand Contact Guard Assistance,1 Person Assistance,Use of Upper Extremities Equipment Transfer Assistive Device Gait Belt,Front Wheeled Walker Orthotic/Prosthetic Devices or Brace: No Transfers Transfer Destination Chair Transfer Technique ambulated Transfer Ability Level of Assist Minimal Assistance,1 Person Assistance,Use of Upper Extremities Comments Mobility Comments Cues for tasks including reaching for bed rails and not for walker d/t pt confusion. Pt is impulsive with STS and gait training quickly with small steps and backing and has LOB self-corrected Gait Assessment Gait Gait Assistance Required: Minimum Assistance Distance (Feet) 20 Assistive Devices Assistive Device Gait Belt,Front Wheeled Walker Orthotic/Prosthetic Devices or Brace: No Gait Deviations General Gait Pattern Decreased Stride Length, Decreased Feet Clearance, Flexed Trunk Factors Limiting Gait Function Factors Limiting Gait Function Difficulty Following Directions,Poor Balance,Poor Safety Awareness Comments Gait Comments Quick, shuffling steps to walk around the bed to the chair. Left with feet resting on window cushion on floor and nsg clearance, call pardo in reach and window curtain open to nsg station, no TINEO PT-Balance Assessment Sitting Balance and Reactions Static Sitting Balance Ability Good Dynamic Sitting Balance Ability Good Standing Balance and Reactions Static Standing Balance Ability Fair Dynamic Standing Balance Ability Fair Device Used FWW M5 PT-IP Objective Assessments Start: 12/05/24 12:42 Freq: NEEDED Status: Active Protocol: Document 12/05/24 11:10 AB (Rec: 12/05/24 13:05 AB Desktop) Orientation Orientation/Cognition Level of Alertness Alert Orientation Name,Place,Situation Language Function Ability Hard of Hearing Safety Awareness Decreased Safety Awareness Memory Description Short Term Impaired Comments slight confusion Gross Range of Motion Lower Extremity ROM Assessment Within Functional Limits Strength Lower Extremity Strength Assessment Within Functional Limits Muscle Tone Muscle Tone WNL Yes M6 PT-IP Treatment Start: 12/05/24 12:42 Freq: NEEDED Status: Active Protocol: Document 12/06/24 11:33 MB (Rec: 12/06/24 11:57 MB Desktop) Physical Therapy Treatment Education Education Provided Precautions,Safety M7 PT-IP Assessment and Plan Start: 12/05/24 12:42 Freq: NEEDED Status: Active Protocol: Document 12/06/24 11:33 MB (Rec: 12/06/24 11:57 MB Desktop) PT Summary Assessment and Plan Potential Rehabilitation Potential Fair Status of Condition at Evaluation Evolving Summary Impairments Balance,Coordination,Cognition ,Bed Mobility,Transfers,Gait, Activity Tolerance Progress Towards Goals Slow Progress - Other Assessment Summary Pt presents with confusion and is only oriented to name, , and month today. She con't to put hand over ileostomy bag and does not understand what surgery she had done and about the bag. PT continue to redirect pt and asks pt not to press too firmly on the bag. Left up in chair with nsg clearance and needs in reach to prepare for lunch. Goals Bed Mobility Goal Standby Assistance Transfer Goal Standby Assistance,Front Wheeled Walker Gait Goal Standby Assistance,Front Wheel Walker Gait Distance 75 Other Goals improve transfers and ambulation using LRAD/without AD ~ 150 ft mod I up/down 16 steps 1 rail SBA Days to Meet Goals 10 Frequency of Treatment Frequency Of Treatment Once a Day Treatment Plan Physical Therapy Treatment Plan Bed Mobility Training,Transfer Training,Gait Training, Therapeutic Exercise,Balance Retraining,Post Op Education, Discharge Planning,Hot or Cold Pack,Neuromuscular Re-ed, Coordination Retraining,Manual Therapy Precautions Abdominal Surgery Precautions Log Roll,Lifting Restrictions, Gait Belt above Incisional Area Recommendations To Nursing Amount of Assist Needed 1 Person Assist Discharge Recommendations PT Discharge Recommendations SNF Rehab Transportation Needs at Discharge Private Vehicle,Wheelchair/ Cabulance - PT assist 1
--- NOTE | 2024-12-06 12:34 | P.PN_ITS ---
Subjective Subjective Interval history: Summary: She was an 84-year-old female who presented with abdominal pain and distention. She was evidence of distal sigmoid colitis and colonic dilation. 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 She was brought up from PACU to the ICU still intubated due to hypotension and pressor requirements. She was quickly extubated and weaned from pressors and downgraded on POD#1. She is still mildly bloated, no real changes since yesterday but is tolerating clears. Will discontinue IV fluids. Exam Vital Signs (past 8 hours): - 12/06/24 05:16 12/06/24 08:00 12/06/24 09:09 Pulse Rate 72 82 78 Respiratory Rate 18 27 H Blood Pressure 151/66 H 158/71 H 158/71 H Pulse Oximetry 95 Oxygen Delivery Method Oxygen Flow Rate 12/06/24 10:01 12/06/24 12:00 Pulse Rate 70 Respiratory Rate 21 Blood Pressure 159/75 H Pulse Oximetry 97 Oxygen Delivery Method Room Air Oxygen Flow Rate 0 Fraction of Inspired Oxygen 40 Oxygen Delivery Method Room Air Oxygen Flow Rate 0 Narrative Exam Narrative: NAD, alert and oriented. Fluent speech. Lungs are clear, normal rate and effort. Heart is regular, no murmur gallop or rub. Abdomen is mildly distended, appropriately tender. Extremities are free of edema. Objective Labs 12/06/24 04:44 12/06/24 04:44 Labs: Laboratory Results - last 24 hr 12/06/24 04:44 WBC 14.0 H RBC 3.68 L Hgb 12.1 Hct 35.5 L MCV 96.4 MCH 32.9 MCHC 34.1 RDW 13.6 Plt Count 265 Neut % (Auto) 81.9 H Lymph % (Auto) 8.0 L [place] % (Auto) 8.5 Eos % (Auto) 1.1 L Baso % (Auto) 0.5 Neut # (Auto) 71833 H Lymph # (Auto) 1100 [place] # (Auto) 1200 H Eos # (Auto) 100 Baso # (Auto) 100 Sodium 135 L Potassium 4.3 Chloride 105 Carbon Dioxide 26 BUN 17 Creatinine 0.48 L Estimated GFR > 60 BUN/Creatinine Ratio 35.4 H Glucose 103 H Calcium 8.0 L Magnesium 2.0 Total Bilirubin 0.7 AST 30 ALT 11 Alkaline Phosphatase 57 Total Protein 5.5 L Albumin 2.6 L Globulin 2.9 Albumin/Globulin Ratio 0.9 L PFSH Medical History Lymphadenopathy Dysarthria History of adenomatous polyp of colon Macular drusen Refractive error Surgical History S/P removal of right ovary Social History household members: spouse Smoking Status: Current some day smoker alcohol intake: current Assessment & Plan Assessment & Plan narrative: 1. Septic shock due to cecal perforation, shock not present on admission developed after admission, improving - s/p ex-lap with end ileostomy and mucous fistula on 12/03. Remained intubated due to presumed shock on levophed after surgery. - now improved and off pressors, extubated on POD#1 early AM. - now advanced to clears per surgeon, given lack of appetite recommends waiting until tomorrow for further advancement of diet. - appreciate surgical consultation, advance diet per surgeon. - continue PT/OT 2. HTN - held lisinopril and HCTZ given above sepsis. Have reumed lisinopril will restart HCTZ as well today. 3. HLD - resume statin, replaced rosuvastatin with atorvastatin 20 mg. Code: DNR, spouse is surrogate decision maker. DVT: HSQ Dispo: Inpatient status. Likely in the hospital for 1-2 more days prior to discharge home w/ home health per therapy recommendations. Time-Based Coding :: [TOTAL MINUTES] spent with patient and on the chart (including review of chart, obtaining history, exam, reviewing outside data, placing orders, documenting exam and treatment plan, and counseling patient) on [DATE]. Quality VTE Deep Vein Thrombosis/Pulmonary Embolism Present on Admission: No
[2024-12-06] MEDS: hydroCHLOROthiazide 25 MG TABLET PO (13:41)
[2024-12-07] VITALS (7 sets, daily range): BP systolic 91–170; BP diastolic 55–77; PULSE 71–100; RESP 16–28; TEMP 36.6–36.8; O2SAT 95–98
[2024-12-07] MEDS: metroNIDAZOLE 500 MG/100 ML PIGGYBACK 100 MG IV ×3 (03:07→20:02)
[2024-12-07 05:15] LABS: Add Manual Diff / Slide Review NO; Basophils Absolute Auto 0 /uL (0-100); Basophils Percent Auto 0.4 % (0-2); Eosinophils Absolute Auto 200 /uL (0-450); Eosinophils Percent Auto 1.4 % (2-4); Hematocrit 35.9 % (36-46); Hemoglobin 12.3 g/dL (12.0-16.0); Lymphocytes Absolute Auto 1600 /uL (1100-4500); Mean Corpuscular HGB Conc 34.1 % (30-36); Mean Corpuscular Hemoglobin 32.5 PG (26-34); Mean Corpuscular Volume 95.3 fL (80-100); Monocytes Absolute Auto 1000 /uL (0-900); Neutrophils Absolute Auto 8600 /uL (1500-7000); Neutrophils Percent Auto 75.2 % (50-75); Platelet Count 290 X10^3/uL (150-400); Red Blood Cell Count 3.77 X10^6/uL (4.0-5.2); Red Cell Distribution Width 14.1 % (11.6-14.8); White Blood Cell Count 11.4 X10^3/uL (4.5-11.0)
[2024-12-07 05:30] LABS: BUN Creatinine Ratio 23.2 (6-22); Blood Urea Nitrogen 13 mg/dL (7-17); Calcium 8.1 mg/dL (8.4-10.2); Carbon Dioxide 27 mmol/L (22-32); Chloride 101 mmol/L (98-107); Estimated Glomerular Filt Rate > 60 mL/min (>60); Glucose 96 mg/dL (70-99); HEMOLYSIS < 15 (0-50); Magnesium 1.9 mg/dL (1.6-2.3); Potassium 3.1 mmol/L (3.4-5.1); Sodium 133 mmol/L (137-145)
[2024-12-07] MEDS: POTASSIUM CHLORIDE IN WATER 10 MEQ/100 ML PIGGYBACK 100 MEQ IV (06:23)
[2024-12-07] MEDS: POTASSIUM CHLORIDE 20 MEQ TAB 40 MEQ PO (08:52)
[2024-12-07] MEDS: ATORVASTATIN 20 MG TABLET PO (08:52)
[2024-12-07] MEDS: hydroCHLOROthiazide 25 MG TABLET PO (08:52)
[2024-12-07] MEDS: lisinopriL 10 MG TABLET PO (08:52)
[2024-12-07] MEDS: OXYCODONE IR 5 MG TABLET PO (08:52)
[2024-12-07] MEDS: CITALOPRAM 10 MG TABLET 30 MG PO (08:52)
[2024-12-07] MEDS: SODIUM CHLORIDE 0.9% FLUSH 10 ML IV ×2 (08:53→20:02)
[2024-12-07] MEDS: HEPARIN 5,000 UNIT/ML VIAL 5000 UNIT SUBCUT ×2 (08:53→20:02)
[2024-12-07] MEDS: cefTRIAXone 1,000 MG in SODIUM CHLORIDE 0.9% 100 ML 200 MG IV (08:53)
[2024-12-07] MEDS: ONDANSETRON 4 MG/2 ML INJ IV (08:53)
--- NOTE | 2024-12-07 11:48 | P.PN_ITS ---
Subjective Subjective Date Patient Seen: 12/07/24 Interval history: Feels better. Tolerated liquids without difficulty. Ostomy continues to function. Exam Vital Signs (past 8 hours): - 12/07/24 04:00 12/07/24 07:00 12/07/24 08:00 Pulse Rate 80 Respiratory Rate 28 H Blood Pressure 170/77 H 141/67 H Pulse Oximetry 98 Oxygen Delivery Method Room Air Oxygen Flow Rate 0 12/07/24 08:52 Pulse Rate 84 Respiratory Rate Blood Pressure 141/67 H Pulse Oximetry Oxygen Delivery Method Oxygen Flow Rate Fraction of Inspired Oxygen 40 Oxygen Delivery Method Room Air Oxygen Flow Rate 0 Narrative Exam Narrative: Lungs are clear to auscultation. Heart has a regular rate and rhythm with no murmur or gallop. Abdomen is soft with appropriate incisional tenderness. Ostomy is pink, viable and productive of enteric contents and gas. Bowel sounds are present. Objective Labs 12/07/24 04:07 12/07/24 04:07 Labs: Laboratory Results - last 24 hr 12/07/24 04:07 WBC 11.4 H RBC 3.77 L Hgb 12.3 Hct 35.9 L MCV 95.3 MCH 32.5 MCHC 34.1 RDW 14.1 Plt Count 290 Neut % (Auto) 75.2 H Lymph % (Auto) 14.0 L [place] % (Auto) 9.0 Eos % (Auto) 1.4 L Baso % (Auto) 0.4 Neut # (Auto) 8600 H Lymph # (Auto) 1600 [place] # (Auto) 1000 H Eos # (Auto) 200 Baso # (Auto) 0 Sodium 133 L Potassium 3.1 L D Chloride 101 Carbon Dioxide 27 BUN 13 Creatinine 0.56 Estimated GFR > 60 BUN/Creatinine Ratio 23.2 H Glucose 96 Calcium 8.1 L Magnesium 1.9 PFSH Medical History Lymphadenopathy Dysarthria History of adenomatous polyp of colon Macular drusen Refractive error Surgical History S/P removal of right ovary Social History household members: spouse Smoking Status: Current some day smoker alcohol intake: current Assessment & Plan Assessment and plan (1) Large bowel obstruction: Status: Acute Plan Doing well. GI function appears to have resumed. Advance to regular diet. Time-Based Coding :: [TOTAL MINUTES] spent with patient and on the chart (including review of chart, obtaining history, exam, reviewing outside data, placing orders, documenting exam and treatment plan, and counseling patient) on [DATE]. Quality VTE Deep Vein Thrombosis/Pulmonary Embolism Present on Admission: No IH PROFEE International Marketing Executive Document charge(s): No
--- NOTE | 2024-12-07 11:54 | DIET.PN1 ---
Dietary Progress Note Assessment: RD f/u Pt's diet has advanced to regular per surgery. Met with pt in room to provide nutrition education with ostomy. Pt had booklet nurse educator had provided her. Reviewed low fiber section with patient. Encouraged and reviewed good protein sources to have at each meal. Discussed ONS as option to support intakes as snack between meals, pt will consider. Reports doing own cooking at home and having 2 meals per day before admission. Will continue to follow for diet tolerance and PO intakes. Ht: 165.1 cm Wt: 63 kg BMI: 20.7 UBW: Pt reports no weight loss recently and stable weight of 125 lb (57 kg) for many years. Last BM: 12/03/24 (12/03/24 16:07) MNA: 12 Abad Score: 19 Diet: 11/30/24 13:48 NPO Diet Diet Modifications: PATIENT MAY HAVE WATER AND ICE CHIPS. DRINK SLOWLY NPO Type: Strict 12/05/24 Lunch Clear Liquid Diet Diet Modifications: 12/07/24 Lunch General (Regular) Diet Diet Modifications: Food Texture: Level 7 - Regular Liquid Consistency: Level 0 - Thin Nutrition Percent Meal Consumed 15 12/06/24 17:56 Labs: RBC 3.77 X10^6/uL (4.0-5.2) L 12/07/24 04:07 Hgb 12.3 g/dL (12.0-16.0) 12/07/24 04:07 Hct 35.9 % (36-46) L 12/07/24 04:07 Creatinine 0.56 mg/dL (0.52-1.04) 12/07/24 04:07 Lactate 1.7 mmol/L (0.7-2.1) 11/30/24 09:02 Electronically Signed by: Sury Gillis 12/07/24 11:54 Clinical Dietitian [address] [address]
--- NOTE | 2024-12-07 12:45 | PC.RNWOUND ---
Ostomy Nurse Consult Note Patient status post on 12/03/2024 Exploratory laparotomy wth end ileostomy and mucous fistual of Ascending colon. Patient sitting up in her bed reading the news paper, her at her bed side. She stated she has not been sleeping well. Discussed discharge planning. I did speak with Dulce Maria this morning about patient going home to [facility] upon discharge which would prefer , since he would be unable to take her home on Saturday. [facility] RN to help with ostomy assessment and teaching and I will see about coordinating with discharge planning to see patient at [facility] or [facility] for ostomy assessment. Today patient cut a wafer and placed it on the model. She learned how to use a barrier ring and do the crusting technique if there is denuded skin from leaking. Reviewed [employer] New Pateint Guide and Nutrition Guide. Patient stated that there is so much to learn and process and stated that is was a bit overwhelming. I told pateint that I will be back the next two days for more teaching and helping to set her up for home health upon discharge. Removed patients appliance while instructing what I was doing. Stomas combined (ileostomy and mucus fistual) measures 40mm, Red, Moist and edematous. Sutures intact. Mucus present and 150cc of green/brown liquid and gas. Midline dressing is dry and intact. Placed a Coloplast two piece transparent appliance with filter and a barrier ring. Patient asked appropriate questions regarding stoma and what she was looking at. I will speak with the [facility] about coordinating post-op appointments and I will return tomorrow afternoon to assess the stoma and continue with teaching.
--- NOTE | 2024-12-07 13:13 | CM.DPC ---
DCP Cont: Per MD, pt making progress and getting closer to being ready for d/c and per staff counselor pt with some ing confusion in the evenings and forgetfulness. Rashid cath removed today to confirm pt can void independently and has been tolerating clears and advanced diet today and seems to be tolerating some food today. Per Wound RN Afia, completed further teaching bedside with pt and spouse and ostomy functioning well and teach went well. Spouse states he cannot transport pt home to [facility] on Sat this week but could get pt home tomorrow or this week and both spouse and Wound RN feel comfortable with pt d/c to home tomorrow if pt remains stable. Wound RN getting supplies together today to go home with pt to be prepared if pt discharges home tomorrow. PT/OT confirm pt mobilizing fairly well but with some confusion and still recommending home with assist and HH. SW confirmed with Lorenza at [facility] that they can accept and will get pt on their list for home care manager for this week, likely Sat or if pt discharges tomorrow. SW updated MD and pt likely stable for discharge tomorrow . Plan: SW to follow for plan of discharge home via spouse POV back to [facility] and likely will need [facility] and [facility] RN/PT to follow. Pt will have outpt f/u with [facility] and Wound RN at [facility] within the next 2 weeks. SW to fax d/c summary, F2F and orders to [facility] at d/c. LAURY Malagon
--- NOTE | 2024-12-07 16:06 | PT-IP ANOTE ---
Pt just completed OT, has some confusion and perserveration about her ileostomy and is not appropriate for PT at this time. Con't PT efforts next date.
--- NOTE | 2024-12-07 16:51 | OT.IP.EVAL ---
Current Diagnoses Vascular disorder of intestine, unspecified (11/30/24) Unspecified intestinal obstruction, unspecified as to partial versus complete obstruction (11/30/24) Surgery Performed Operation Date: 12/03/24 14:45 Actual Procedures p EXPLORATORY LAPAROTOMY, ILEOCECECTOMY, ILEOSTOMY, MUCUS FISTULA - Leon Tovar MD Past Medical History (Last Reviewed 12/02/24 @ 07:25 by Thaddeus Castaneda MD) Dysarthria History of adenomatous polyp of colon Lymphadenopathy Macular drusen Refractive error Surgical History (Last Reviewed 12/02/24 @ 07:25 by Thaddeus Castaneda MD) S/P removal of right ovary Occupational Therapy Inpatient Evaluation/Re-Eval M1 PT/OT-IP Prior Functional Status Start: 12/05/24 12:42 Freq: NEEDED Status: Active Protocol: Document 12/07/24 16:26 MARGARITA (Rec: 12/07/24 16:51 [facility] Desktop) Medical Review Prior Functional Status Medical History Reviewed Yes Diet/Fluid Consistency Clear Liquids Communication able to make needs known; needs time to respond to questions; some confusion and perseveration Mobility and Gait pt stated that she was independent with all mobilities and ambulation without AD Activities of Daily Living and IADL's pt reports that she was I with BADL, IADL, grocery shopping, gardening and driving Social History Household Members spouse Living Arrangements House Number of Stairs To Enter/Railing? pt lives at [facility] but also has a condo in [place]: pt/spouse is not sure where they are going to stay when pt discharges [facility] house: 2 level house but pt stays on main level of the house; ramp to enter [facility] condo: elevator to get in but has 16 steps to get to bedroom level Home Environment Standard Height Toilet,Walk in Shower Home Equipment Straight Cane,Hand Held Shower M2 OT-IP Current Condition Start: 12/07/24 16:01 Freq: Status: Active Protocol: Document 12/07/24 16:26 ALESHIA (Rec: 12/07/24 16:51 [facility] Desktop) Occupational Therapy Current Condition Current Condition Evaluation Date 12/07/24 Treatment Diagnosis s/p ex lap with ileostomy Diagnosis Onset Date 11/30/24 Post Operative Precautions Abdominal Surgery Precautions Log Roll,Gait Belt above Incisional Area M3 OT- IP Subjective and Pain Start: 12/07/24 16:01 Freq: Status: Active Protocol: Document 12/07/24 16:26 ALESHIA (Rec: 12/07/24 16:51 [facility]) OT- Subjective Occupational Therapy Visit Type Type Initial Evaluation Visit Start Time 15:30 Visit Stop Time 15:55 Notes Pt sitting up in bed on entrance of OT. Pt agreed to participate in OT eval. Spouse present for entire eval. Occupational Therapy Visit Comments Patient Comments Pt expressed being very concerned about having to learn about her ostomy and how to manage it. It's just a lot. Patient/Caregiver Goals to go home. to be I with ostomy bag. OT Pain Assessment Pain When Pain Assessed At Rest Pain Present Pain Present Pain Reported Location Abdomen Intensity 3 Scale Used Numeric (0 - 10) M4 OT- IP ADL's Start: 12/07/24 16:01 Freq: Status: Active Protocol: Document 12/07/24 16:26 ALESHIA (Rec: 12/07/24 16:[facility] OT [id number] Comments OT Self-Feeding Comments not observed OT ADL-Grooming Comments OT Grooming Comments not observed, pt declined at time of eval OT ADL-Oral Care Comments Oral Care Comments not observed, pt declined at time of eval stating I'm going to eat a treat in a minute. OT ADL-Dressing General Eval Lower Body Dressing Ability Minimal Assistance Areas Needing Assistance Socks Comments OT Dressing Comments Pt doffed and donned socks with EOB with min A to adjust so that sole was in the correct direction. OT ADL-Toileting Comments OT Toileting Comments pt declines need at time of eval. OT ADL-Bathing Comments OT Bathing Comments pt declines, not observed, likely would benefit from EOB ADLs at this time. M5 OT- IP IADL's Start: 12/07/24 16:01 Freq: Status: Active Protocol: Document 12/07/24 16:26 ALESHIA (Rec: 12/07/24 16:51 [facility]) OT-Instrumental Activities of Daily Living Deficits IADL Deficits Identified Deficits Home Safety Awareness Awareness of Need for Assistance at Home Decreased Awareness Ability to Problem Solve Emergency Unable to Problem Solve Situations Medication Management Medication Management Caregiver Provides Supervision Money Management Money Management Caregiver Provides Supervision Meal Preparation Meal Preparation Comments pt may need assist due to decreased safety awareness Industrial Methods Consultant Industrial Methods Consultant Caregiver Provides Assist Industrial Methods Consultant Comments pt may need assist on d/c Driving Driving Caregiver Provides Assist M6 OT- IP Functional Cognition Start: 12/07/24 16:01 Freq: Status: Active Protocol: Document 12/07/24 16:26 ALEXAZHANSAPEPPER (Rec: 12/07/24 16:51 [facility] Desktop) Cognitive Factors Limiting Selfcare Function Cognitive Ability Level of Alertness Alert Patient Orientation Name,Date,Place,Situation Attention Span Ability Capable of Focused Attention, Unable to Sustain Attention Ability to Follow Commands Able to Follow One Step Commands with Increased Time, Able to Follow One Step Commands with Repetition Memory Description Short Term Impaired Safety Awareness Underestimates Need for Assistance Executive Function Ability Unable to Switch Focus,Unable to Filter Distractions,Unable to Make Plans Abstract Thinking Ability Unable to Be Adaptable in Thinking Cognitive Comments Cognitive Assessment Comments Pt would likely benefit from SLUMs assessment. Pt is easily distracted, has difficulty attending to task or answering specific question. Pt is impulsive at times. Pt is overly fixated on her ostomy bag and it distracts from her ability to attend to various aspects of the eval. OT- Vision and Hearing OT- Hearing Assessment OT- Hearing Assessment WFL OT- Vision Assessment Visual Acuity WFL,Glasses For Reading M7 OT- IP Mobility and Balance Start: 12/07/24 16:01 Freq: Status: Active Protocol: Document 12/07/24 16:26 ALEXAZJOCELYN (Rec: 12/07/24 16:51 [facility]) OT- Bed Mobility Assessment Rolling Type of Rolling Roll to Left Level of Assistance Contact Guard Assistance Supine to Sit Supine to Sit Assist Standby Assistance,Head of Bed Elevated Scooting Scooting to Edge of Bed Standby Assistance,Bedrails OT-Transfer Assessment Sit to and From Stand Sit to and from Stand Standby Assistance,Use of Upper Extremities Transfers Transfer Ability Contact Guard Assistance Technique Transfer Destination Bed Transfer Technique Stand Step Pivot Devices Transfer Assistive Devices Gait Belt,Front Wheeled Walker Comments Mobility Comments Pt refused t/f to chair. OT- Gait Assessment Gait Gait Assistance Required: Contact Guard Assist Distance (Feet) 10 Assistive Devices Assistive Device Gait Belt,Front Wheeled Walker Comments Gait Ability Comments OT suggested t/f to chair or performing sink side ADLs. Pt refused both and then impulsively began to walk. She walked until her FWW was pushed up against the recliner and then said Ok, now what. OT directed pt back to EOB where she returned to reclined position. OT- Balance Assessment Sitting Balance and Reactions Static Sitting Balance Ability Good Dynamic Sitting Balance Ability Good Standing Balance and Reactions Static Standing Balance Ability Good Dynamic Standing Balance Ability Fair M8 OT- IP Objective Assessments Start: 12/07/24 16:01 Freq: Status: Active Protocol: Document 12/07/24 16:26 [facility] (Rec: 12/07/24 16:51 [facility] Desktop) OT Gross Range of Motion Upper Extremity Range of Motion Assessment Within Functional Limits OT Strength Upper Extremity Strength Assessment Within Functional Limits Hand Fireworks Maker Strength Hand Dominance Right Comments Strength Comments 5/5 UE overall OT-Muscle Tone Assessment Muscle Tone WNL Yes OT Sensation Assessment Edema Edema Absent M9 OT- IP Assessment and Plan Start: 12/07/24 16:01 Freq: Status: Active Protocol: Document 12/07/24 16:26 [facility] (Rec: 12/07/24 16:51 [facility]) OT Summary Assessment and Plan Potential Rehabilitation Potential Good Analytic Complexity at Evaluation Low Summary OT Impairments Pain,Balance,Functional Cognition,Functional Mobility, Grooming,Dressing,Toileting, Bathing,Toilet Transfers, Shower Transfers,Activity Tolerance Progress Towards Goals Progressing Toward Goals Assessment Summary Pt is 84 yo F, low complexity evmaria e, who was admitted for large bowel obstruction and cecal perforation. She underwent ex-lap with ileostomy POD 2. Pt with abdominal precautions and has ostomy bag. Pt presents with decreased safety awareness, impulsivity, perseveration concerning ostomy bag, and difficulty with focus. Pt presents with decreased functional t/fs, decreased BADL, decreased balance, and activity intolerance. Skilled OT services are appropriate to address these deficits. Pt would benefit from SLUM assessment. Pt and spouse are unsure if they will d/c to their [facility] or [employer]. Pt plans on d/c home with spouse for assistance. Goals Grooming Goal Independent Dressing Goal Independent Toileting Goal Independent Bathing Goal Independent Toilet Transfer Goal Independent Shower Transfer Goal Independent Days to Meet Goals 5 Frequency of Treatment Other frequency 5x/wk Treatment Plan OT Treatment Plan ADL Training,Functional Cognition Training,Functional Mobility,Therapeutic Exercises ,Patient/Family Education, Discharge Planning Other Treatment Recommendations and Next SLUMS assessment; sink side Treatment Focus ADL Discharge Recommendations OT Discharge Recommendations Home with 24/7 Assist Available,Home Health Transportation Needs at Discharge Private Vehicle
--- NOTE | 2024-12-07 18:36 | PC.NURSE ---
Patients illeostomy/colostomy leaking after it was replaced with a new one today. Reenforced with tape and no leaks thus far. Patient is resting comfortably.
--- NOTE | 2024-12-07 18:41 | P.PN_ITS ---
Subjective Subjective Date Patient Seen: 12/07/24 Interval history: Chief complaint: Severe abdominal pain sepsis secondary to sigmoid colitis History of present illness and hospital course: She was an 84-year-old female who presented with abdominal pain and distention. She was evidence of distal sigmoid colitis and colonic dilation. 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 She was brought up from PACU to the ICU still intubated due to hypotension and pressor requirements. She was quickly extubated and weaned from pressors and downgraded on POD#1. 6/2: Tolerating regular diet asking to be discharged soon Review of systems: No fevers or chills is hungry No headache diplopia No chest pain palpitations shortness for breath wheezing No nausea vomiting No abdominal pain Physical exam: Alert cogent no acute distress HEENT unremarkable Unlabored respirations Abdomen nontender output from ostomy Extremities no edema Assessment and plan: 1. Septic shock due to cecal perforation, shock not present on admission developed after admission, resolved - s/p ex-lap with end ileostomy and mucous fistula on 12/03. Remained intubated due to presumed shock on levophed after surgery. - now improved and off pressors, extubated on POD#1 early AM. - now advanced to clears per surgeon, given lack of appetite recommends waiting until tomorrow for further advancement of diet. - appreciate surgical consultation, advance diet per surgeon. - continue PT/OT 2. HTN - held lisinopril and HCTZ given above sepsis. Have reumed lisinopril will restart HCTZ as well today. 3. HLD - resume statin, replaced rosuvastatin with atorvastatin 20 mg. Code: DNR, spouse is surrogate decision maker. DVT: HSQ Dispo: Inpatient status. Likely in the hospital for 1 more days prior to discharge home w/ home health per therapy recommendations. Time-Based Coding :: 35 minutes spent with patient and on the chart (including review of chart, obtaining history, exam, reviewing outside data, placing orders, documenting exam and treatment plan, and counseling patient) Exam Vital Signs (past 8 hours): - 12/07/24 12:00 12/07/24 16:00 Pulse Rate 80 83 Respiratory Rate 24 20 Blood Pressure 132/59 L 136/61 Pulse Oximetry 97 96 Oxygen Flow Rate 0 Fraction of Inspired Oxygen 40 Oxygen Delivery Method Room Air Oxygen Flow Rate 0 Objective Labs 12/07/24 04:07 12/07/24 04:07 Labs: Laboratory Results - last 24 hr 12/07/24 04:07 WBC 11.4 H RBC 3.77 L Hgb 12.3 Hct 35.9 L MCV 95.3 MCH 32.5 MCHC 34.1 RDW 14.1 Plt Count 290 Neut % (Auto) 75.2 H Lymph % (Auto) 14.0 L Guthrie % (Auto) 9.0 Eos % (Auto) 1.4 L Baso % (Auto) 0.4 Neut # (Auto) 8600 H Lymph # (Auto) 1600 Guthrie # (Auto) 1000 H Eos # (Auto) 200 Baso # (Auto) 0 Sodium 133 L Potassium 3.1 L D Chloride 101 Carbon Dioxide 27 BUN 13 Creatinine 0.56 Estimated GFR > 60 BUN/Creatinine Ratio 23.2 H Glucose 96 Calcium 8.1 L Magnesium 1.9 PFSH Medical History Lymphadenopathy Dysarthria History of adenomatous polyp of colon Macular drusen Refractive error Surgical History S/P removal of right ovary Social History household members: spouse Smoking Status: Current some day smoker alcohol intake: current Assessment & Plan Time-Based Coding :: [TOTAL MINUTES] spent with patient and on the chart (including review of chart, obtaining history, exam, reviewing outside data, placing orders, documenting exam and treatment plan, and counseling patient) on [DATE]. Quality VTE Deep Vein Thrombosis/Pulmonary Embolism Present on Admission: No
--- NOTE | 2024-12-07 19:15 | PC.NURSE ---
Ilieostomy dressing leaking. Removed ilieostomy and placed new bag. Cleaned midline incision with NS and gauze. Placed abd pad and tape.
[2024-12-08] VITALS (7 sets, daily range): BP systolic 130–150; BP diastolic 55–67; PULSE 74–93; RESP 15–21; TEMP 36.7–37.1; O2SAT 86–99
[2024-12-08] MEDS: metroNIDAZOLE 500 MG/100 ML PIGGYBACK 100 MG IV ×3 (02:59→20:52)
[2024-12-08 06:36] LABS: BUN Creatinine Ratio 20.4 (6-22); Blood Urea Nitrogen 11 mg/dL (7-17); Calcium 7.8 mg/dL (8.4-10.2); Carbon Dioxide 28 mmol/L (22-32); Chloride 97 mmol/L (98-107); Estimated Glomerular Filt Rate > 60 mL/min (>60); Glucose 112 mg/dL (70-99); HEMOLYSIS < 15 (0-50); Magnesium 1.6 mg/dL (1.6-2.3); Potassium 2.9 mmol/L (3.4-5.1); Sodium 130 mmol/L (137-145)
--- NOTE | 2024-12-08 08:38 | PM.DS.1 ---
History of Present Illness History of Present Illness Date Patient Seen: 12/08/24 Chief complaint: abdominal pain, Discharge Providers Provider Date of admission: 11/30/24 11:27 Primary care physician: Violetta Marin PA-C Consults: 12/01/24 11:28 Consult to General Surgery Routine Comment: Consulting Provider: Leon Tovar Reason for consultation: colitis and colonic air Has provider been notified: Yes 12/03/24 21:00 Consult to Dietitian, Adult Routine Comment: Reason For Exam: Patient on Ventilator and NPO 12/04/24 16:48 Consult to Occupational Therapy Evaluate & Treat Comment: Physician Instructions: Evaluate and treat Consult to Physical Therapy Evaluate & Treat Comment: Physician Instructions: Evaluate and Treat Discharge provider: Seymour Dunbar MD Exam Vital Signs (past 8 hours): Fraction of Inspired Oxygen 40 Oxygen Delivery Method Room Air Oxygen Flow Rate 0 Objective Labs 12/07/24 04:07 12/08/24 04:07 Labs: Laboratory Results - last 24 hr 12/08/24 04:07 Sodium 130 L Potassium 2.9 L Chloride 97 L Carbon Dioxide 28 BUN 11 Creatinine 0.54 Estimated GFR > 60 BUN/Creatinine Ratio 20.4 Glucose 112 H Calcium 7.8 L Magnesium 1.6 PFSH Medical History Lymphadenopathy Dysarthria History of adenomatous polyp of colon Macular drusen Refractive error Surgical History S/P removal of right ovary Social History household members: spouse Smoking Status: Current some day smoker alcohol intake: current Discharge Plan Discharge Plan Patient Disposition: Home Discharge orders & Medications Prescriptions: Continued citalopram 20 mg tablet 30 mg PO DAILY Rx Instructions: takes at noon famotidine 20 mg Tablet 20 mg PO BID rosuvastatin 10 mg tablet 10 mg PO DAILY Qty: 60 0RF lisinopril 10 mg tablet 10 mg PO DAILY hydrochlorothiazide 25 mg tablet 25 mg PO DAILY Follow up/Referrals: Violetta Marin PA-C [Primary Care Provider, Medical] Visit Report/Discharge Packet Stand Alone Forms: Patient Portal/API, Surgery Discharge Discharge Data Primary Care Provider: Violetta Marin Quality VTE Deep Vein Thrombosis/Pulmonary Embolism Present on Admission: No
[2024-12-08] MEDS: cefTRIAXone 1,000 MG in SODIUM CHLORIDE 0.9% 100 ML 200 MG IV (09:07)
[2024-12-08] MEDS: hydroCHLOROthiazide 25 MG TABLET PO (09:08)
[2024-12-08] MEDS: HEPARIN 5,000 UNIT/ML VIAL 5000 UNIT SUBCUT ×2 (09:08→20:52)
[2024-12-08] MEDS: ATORVASTATIN 20 MG TABLET PO (09:08)
[2024-12-08] MEDS: CITALOPRAM 10 MG TABLET 30 MG PO (09:08)
[2024-12-08] MEDS: lisinopriL 10 MG TABLET PO (09:08)
[2024-12-08] MEDS: SODIUM CHLORIDE 0.9% FLUSH 10 ML IV ×2 (09:09→20:52)
--- NOTE | 2024-12-08 10:36 | OT.IP.TRT ---
Current Diagnoses Vascular disorder of intestine, unspecified (11/30/24) Unspecified intestinal obstruction, unspecified as to partial versus complete obstruction (11/30/24) Surgery Performed Operation Date: 12/03/24 14:45 Actual Procedures p EXPLORATORY LAPAROTOMY, ILEOCECECTOMY, ILEOSTOMY, MUCUS FISTULA - Leon Tovar MD Occupational Therapy Treatment Note M2 OT-IP Current Condition Start: 12/07/24 16:01 Freq: Status: Active Protocol: Document 12/08/24 10:29 [facility] (Rec: 12/08/24 10:35 [facility] Desktop) Occupational Therapy Current Condition Current Condition Evaluation Date 12/07/24 Treatment Diagnosis s/p ex lap with ileostomy Diagnosis Onset Date 11/30/24 Post Operative Precautions Abdominal Surgery Log Roll,Gait Belt above Incisional Area Precautions M3 OT- IP Subjective and Pain Start: 12/07/24 16:01 Freq: Status: Active Protocol: Document 12/08/24 10:29 [facility] (Rec: 12/08/24 10:35 [facility] Desktop) OT- Subjective Occupational Therapy Visit Type Visit Start Time 10:15 Visit Stop Time 10:30 Occupational Therapy Visit Comments Patient Comments Spouse present. He reports that they are not going home today because it is too late. [place] [facility]. He is not available on Saturday . Thus, the current plan is for Teagan to go home on . He reports that she still needs to get trained on managing the ostomy bag; she isn't comfortable yet with its management. M4 OT- IP ADL's Start: 12/07/24 16:01 Freq: Status: Active Protocol: Document 12/07/24 16:26 ALESHIA (Rec: 12/07/24 16:51 [facility] Desktop) OT [id number] Comments OT Self-Feeding not observed Comments OT ADL-Grooming Comments OT Grooming Comments not observed, pt declined at time of eval OT ADL-Oral Care Comments Oral Care Comments not observed, pt declined at time of eval stating I'm going to eat a treat in a minute. OT ADL-Dressing General Eval Lower Body Dressing Minimal Assistance Ability Areas Needing Socks Assistance Comments OT Dressing Comments Pt doffed and donned socks with EOB with min A to adjust so that sole was in the correct direction. OT ADL-Toileting Comments OT Toileting pt declines need at time of eval. Comments OT ADL-Bathing Comments OT Bathing Comments pt declines, not observed, likely would benefit from EOB ADLs at this time. M5 OT- IP IADL's Start: 12/07/24 16:01 Freq: Status: Active Protocol: Document 12/07/24 16:26 ALEXRIJOCELYN (Rec: 12/07/24 16:51 [facility] OT-Instrumental Activities of Daily Living Deficits IADL Deficits Deficits Identified Home Safety Awareness Awareness of Need Decreased Awareness for Assistance at Home Ability to Problem Unable to Problem Solve Solve Emergency Situations Medication Management Medication Caregiver Provides Supervision Management Money Management Money Management Caregiver Provides Supervision Meal Preparation Meal Preparation pt may need assist due to decreased safety awareness Comments Photo Optics Technician Photo Optics Technician Caregiver Provides Assist Photo Optics Technician pt may need assist on d/c Comments Driving Driving Caregiver Provides Assist M6 OT- IP Functional Cognition Start: 12/07/24 16:01 Freq: Status: Active Protocol: Document 12/07/24 16:26 ALESHIA (Rec: 12/07/24 16:51 [facility]) Cognitive Factors Limiting Selfcare Function Cognitive Ability Level of Alertness Alert Patient Orientation Name,Date,Place,Situation Attention Span Capable of Focused Attention,Unable to Sustain Ability Attention Ability to Follow Able to Follow One Step Commands with Increased Time, Commands Able to Follow One Step Commands with Repetition Memory Description Short Term Impaired Safety Awareness Underestimates Need for Assistance Executive Function Unable to Switch Focus,Unable to Filter Distractions, Ability Unable to Make Plans Abstract Thinking Unable to Be Adaptable in Thinking Ability Cognitive Comments Cognitive Assessment Pt would likely benefit from SLUMs assessment. Pt is Comments easily distracted, has difficulty attending to task or answering specific question. Pt is impulsive at times. Pt is overly fixated on her ostomy bag and it distracts from her ability to attend to various aspects of the eval. OT- Vision and Hearing OT- Hearing Assessment OT- Hearing WFL Assessment OT- Vision Assessment Visual Acuity WFL,Glasses For Reading M7 OT- IP Mobility and Balance Start: 12/07/24 16:01 Freq: Status: Active Protocol: Document 12/07/24 16:26 ALESHIA (Rec: 12/07/24 16:51 [facility]) OT- Bed Mobility Assessment Rolling Type of Rolling Roll to Left Level of Assistance Contact Guard Assistance Supine to Sit Supine to Sit Assist Standby Assistance,Head of Bed Elevated Scooting Scooting to Edge of Standby Assistance,Bedrails Bed OT-Transfer Assessment Sit to and From Stand Sit to and from Standby Assistance,Use of Upper Extremities Stand Transfers Transfer Ability Contact Guard Assistance Technique Transfer Destination Bed Transfer Technique Stand Step Pivot Devices Transfer Assistive Gait Belt,Front Wheeled Walker Devices Comments Mobility Comments Pt refused t/f to chair. OT- Gait Assessment Gait Gait Assistance Contact Guard Assist Required: Distance (Feet) 10 Assistive Devices Assistive Device Gait Belt,Front Wheeled Walker Comments Gait Ability OT suggested t/f to chair or performing sink side ADLs. Comments Pt refused both and then impulsively began to walk. She walked until her FWW was pushed up against the recliner and then said Ok, now what. OT directed pt back to EOB where she returned to reclined position. OT- Balance Assessment Sitting Balance and Reactions Static Sitting Good Balance Ability Dynamic Sitting Good Balance Ability Standing Balance and Reactions Static Standing Good Balance Ability Dynamic Standing Fair Balance Ability M8 OT- IP Objective Assessments Start: 12/07/24 16:01 Freq: Status: Active Protocol: Document 12/07/24 16:26 [facility] (Rec: 12/07/24 16:51 [facility] Desktop) OT Gross Range of Motion Upper Extremity Range of Motion Assessment Within Functional Limits OT Strength Upper Extremity Strength Assessment Within Functional Limits Hand Supervisor [employer] Strength Hand Dominance Right Comments Strength Comments 5/5 UE overall OT-Muscle Tone Assessment Muscle Tone WNL Yes OT Sensation Assessment Edema Edema Absent M9 OT- IP Assessment and Plan Start: 12/07/24 16:01 Freq: Status: Active Protocol: Document 12/08/24 10:29 [facility] (Rec: 12/08/24 10:35 [facility] Desktop) OT Summary Assessment and Plan Potential Rehabilitation Good Potential Analytic Complexity Low at Evaluation Summary Assessment Summary (+) wearing of glasses when viewing items on the SLUMS exam; (+) administering of the SLUMS examination w/ patient seated up in chair. Teagan earned a total score of 11 out of 30. According to the SLUMS, this is indicative of signs or symptoms of dementia. Further standardized cognitive testing is recommended. Goals Grooming Goal Independent Dressing Goal Independent Toileting Goal Independent Bathing Goal Independent Toilet Transfer Goal Independent Shower Transfer Goal Independent Days to Meet Goals 5 Frequency of Treatment Other frequency 5x/wk Treatment Plan OT Treatment Plan ADL Training,Functional Cognition Training,Functional Mobility,Therapeutic Exercises,Patient/Family Education ,Discharge Planning Other Treatment SLUMS assessment; sink side ADL Recommendations and Next Treatment Focus Discharge Recommendations OT Discharge Home with 24/7 Assist Available,Home Health Recommendations Transportation Needs Private Vehicle at Discharge
--- NOTE | 2024-12-08 10:52 | P.PN_ITS ---
Subjective Subjective Date Patient Seen: 12/08/24 Time Patient Seen: 10:52 Interval history: Feeling better now. She has worked with Afia the ostomy therapist. Exam Vital Signs (past 8 hours): - 12/08/24 08:00 Pulse Rate 81 Respiratory Rate 21 Blood Pressure 130/60 Pulse Oximetry 97 Fraction of Inspired Oxygen 40 Oxygen Delivery Method Room Air Oxygen Flow Rate 0 Narrative Exam Narrative: Abdomen is significantly less distended than preop The ileostomy and mucous fistula are beefy red and well perfused Objective Labs 12/07/24 04:07 12/08/24 04:07 Labs: Laboratory Results - last 24 hr 12/08/24 04:07 Sodium 130 L Potassium 2.9 L Chloride 97 L Carbon Dioxide 28 BUN 11 Creatinine 0.54 Estimated GFR > 60 BUN/Creatinine Ratio 20.4 Glucose 112 H Calcium 7.8 L Magnesium 1.6 PFSH Medical History Lymphadenopathy Dysarthria History of adenomatous polyp of colon Macular drusen Refractive error Surgical History S/P removal of right ovary Social History household members: spouse Smoking Status: Current some day smoker alcohol intake: current Assessment & Plan Assessment and plan (1) Large bowel obstruction: Status: Acute Plan Doing well following ileocecectomy, 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 We talked about fluid output from the ileostomy especially in the first few weeks after surgery. We talked about the importance of oral fluid intake at home. Ideally I would see her for a postop visit sometime next week and potentially schedule her for a proctoscopy the following week. She would prefer anesthesia for the procedure. Time-Based Coding :: [TOTAL MINUTES] spent with patient and on the chart (including review of chart, obtaining history, exam, reviewing outside data, placing orders, documenting exam and treatment plan, and counseling patient) on [DATE]. Quality VTE Deep Vein Thrombosis/Pulmonary Embolism Present on Admission: No IH PROFEE Airline Reservation Agent Document charge(s): No
--- NOTE | 2024-12-08 12:25 | CM.DPC ---
DCP Cont. Reviewed EMR and team rounds for pt's status updates. Pt was deemed ready for d/c by the Hospitalist, however Dr. Tovar did not feel she was ready. Pt's cannot take her home until , even if she is medically stable tomorrow, due to having made plans for himself in [place]. He later did confirm that he has a ferry reservation for [place] for the return home. Monitoring for cont. needs.
[2024-12-08] MEDS: MAGNESIUM CHLORIDE 64 MG TABLET 128 MG PO (12:43)
[2024-12-08] MEDS: POTASSIUM CHLORIDE IN WATER 10 MEQ/100 ML PIGGYBACK 100 MEQ IV ×6 (12:43→22:52)
--- NOTE | 2024-12-08 14:25 | PC.RNWOUND ---
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 Patient is sitting at the side of the bed with her . She states she emptied her ostomy appliance twice today and feel comfortable with this process. She ate a regular diet yesterday afternoon and has been tolerating a regular diet. She continues to have liquid stool and gas. Her appliance is inplace, althought it was changed last night because it leaked. Her stoma if edematous, red and moist. Patient has been reading the ostomy handouts. Plan to discharge on . I will come up tomorrow and have the patient change the appliance with my assistance. Plan to have patient return next week to see Dr. Kulkarni and I plan to see patient as well. I will have supplies ready to send home with patient and hopefully [facility] will be able to see patient the end of this week.
--- NOTE | 2024-12-08 16:50 | PT.IPTN ---
Current Diagnoses Vascular disorder of intestine, unspecified (11/30/24) Unspecified intestinal obstruction, unspecified as to partial versus complete obstruction (11/30/24) Surgery Performed Operation Date: 12/03/24 14:45 Actual Procedures p EXPLORATORY LAPAROTOMY, ILEOCECECTOMY, ILEOSTOMY, MUCUS FISTULA - Leon Tovar MD Physical Therapy Treatment Note M2 PT-IP Current Condition Start: 12/05/24 12:42 Freq: NEEDED Status: Active Protocol: Document 12/05/24 11:10 AB (Rec: 12/05/24 13:05 AB Desktop) Physical Therapy Current Condition Current Condition Evaluation Date 12/05/24 Treatment Diagnosis s/p ex-lap with ileostomy; difficulty in walking Onset Date 11/30/24 M3 PT-IP Subjective Start: 12/05/24 12:42 Freq: NEEDED Status: Active Protocol: Document 12/08/24 16:50 AB (Rec: 12/08/24 17:45 AB [id number]) Subjective Physical Therapy Visit Type Type Treatment Note Visit Start Time 16:50 Visit Stop Time 17:35 Number of MULTIPLE PUNCH PRESS OPERATOR Visits 0 Physical Therapy Visit Comments Patient Comments agreeable to do PT Therapy Pain Assessment Pain Present Pain Present Denied Pain M4 PT-IP Mobility and Gait Start: 12/05/24 12:42 Freq: NEEDED Status: Active Protocol: Document 12/08/24 16:50 AB (Rec: 12/08/24 17:45 AB [id number]) PT-Bed Mobility Assessment Supine to Sit Supine to Sit Moderate Assistance,1 Person Assistance,Bedrails PT-Transfer Assessment Sit to and From Stand Sit to and from Contact Guard Assistance,1 Person Assistance,Use of Stand Upper Extremities Equipment Transfer Assistive Gait Belt,Front Wheeled Walker Device Orthotic/Prosthetic No Devices or Brace: Transfers Transfer Destination Toilet Transfer Technique ambulated Transfer Ability Level of Assist Contact Guard Assistance,1 Person Assistance,Use of Upper Extremities Comments Mobility Comments pt in bed and agreeable to do PT. pt continues to have some confusion. unable to recall abdominal precautions and log roll bed mobility. needs cues with all tasks. pt completed supine to sit log roll mod A and max cues. sit to stand CGA and requested to use the toilet. pt ambulated to the toilet using FWW CGA. nurse assisted pt with colostomy care. sit to stand from the toilet using grab bar CGA and pt ambulated towards the sink using FWW CGA. able to maintain standing SBA while completing handwashing. pt ambulated more in the hallway ~ 60 ft using FWW CGA and sat back on chair. positioned pt on the chair. call light and table placed within reach. Gait Assessment Gait Gait Assistance Contact Guard Assist Required: Distance (Feet) 60 Able to Maintain Yes Weight Bearing Status During Gait Assistive Devices Assistive Device Gait Belt,Front Wheeled Walker Orthotic/Prosthetic No Devices or Brace: Gait Deviations General Gait Pattern Decreased Stride Length,Decreased Feet Clearance Factors Limiting Gait Function Factors Limiting Decreased Activity Tolerance,Decreased Sensation, Gait Function Decreased Strength,Difficulty Following Directions, Limited Range of Motion,Pain,Poor Balance,Poor Safety Awareness M5 PT-IP Objective Assessments Start: 12/05/24 12:42 Freq: NEEDED Status: Active Protocol: Document 12/05/24 11:10 AB (Rec: 12/05/24 13:05 AB Desktop) Orientation Orientation/Cognition Level of Alertness Alert Orientation Name,Place,Situation Language Function Hard of Hearing Ability Safety Awareness Decreased Safety Awareness Memory Description Short Term Impaired Comments slight confusion Gross Range of Motion Lower Extremity ROM Assessment Within Functional Limits Strength Lower Extremity Strength Assessment Within Functional Limits Muscle Tone Muscle Tone WNL Yes M6 PT-IP Treatment Start: 12/05/24 12:42 Freq: NEEDED Status: Active Protocol: Document 12/08/24 16:50 AB (Rec: 12/08/24 17:45 AB [id number]) Physical Therapy Treatment Education Education Provided Precautions,Safety M7 PT-IP Assessment and Plan Start: 12/05/24 12:42 Freq: NEEDED Status: Active Protocol: Document 12/08/24 16:50 AB (Rec: 12/08/24 17:45 AB [id number]) PT Summary Assessment and Plan Potential Rehabilitation Fair Potential Summary Impairments Pain,ROM,Strength,Balance,Coordination,Sensation,Tone, Cognition,Bed Mobility,Transfers,Gait,Activity Tolerance Progress Towards Slow Progress due to Activity Tolerance Goals Assessment Summary pt progressing with mobility and requiring CGA using FWW. pt stated that spouse was able to get a FWW for her to use. pt plans to go home and spouse to assist. pt will benefit from HHPT. Goals Bed Mobility Goal Standby Assistance Transfer Goal Standby Assistance,Front Wheeled Walker Gait Goal Standby Assistance,Front Wheel Walker Gait Distance 75 Other Goals improve transfers and ambulation using LRAD/without AD ~ 150 ft mod I up/down 16 steps 1 rail SBA Days to Meet Goals 10 Treatment Plan Physical Therapy Bed Mobility Training,Transfer Training,Gait Training, Treatment Plan Therapeutic Exercise,Balance Retraining,Post Op Education,Discharge Planning,Hot or Cold Pack, Neuromuscular Re-ed,Coordination Retraining,Manual Therapy Precautions Abdominal Surgery Log Roll,Lifting Restrictions,Gait Belt above Precautions Incisional Area Recommendations To Nursing Amount of Assist 1 Person Assist Needed Discharge Recommendations PT Discharge Home with 28/01 Assist Available,Home Health Recommendations Transportation Needs Private Vehicle,Wheelchair/Cabulance at Discharge - PT assist 1
[2024-12-09] VITALS (10 sets, daily range): BP systolic 129–158; BP diastolic 59–75; PULSE 70–86; RESP 16–20; TEMP 36.6–37.2; O2SAT 96–99
[2024-12-09] MEDS: metroNIDAZOLE 500 MG/100 ML PIGGYBACK 100 MG IV ×3 (03:15→20:06)
[2024-12-09 05:36] LABS: BUN Creatinine Ratio 16.7 (6-22); Blood Urea Nitrogen 9 mg/dL (7-17); Calcium 8.1 mg/dL (8.4-10.2); Carbon Dioxide 27 mmol/L (22-32); Chloride 100 mmol/L (98-107); Estimated Glomerular Filt Rate > 60 mL/min (>60); Glucose 100 mg/dL (70-99); HEMOLYSIS < 15 (0-50); Magnesium 1.7 mg/dL (1.6-2.3); Potassium 3.1 mmol/L (3.4-5.1); Sodium 132 mmol/L (137-145)
[2024-12-09] MEDS: lisinopriL 10 MG TABLET PO (08:51)
[2024-12-09] MEDS: ATORVASTATIN 20 MG TABLET PO (08:51)
[2024-12-09] MEDS: hydroCHLOROthiazide 25 MG TABLET PO (08:51)
[2024-12-09] MEDS: CITALOPRAM 10 MG TABLET 30 MG PO (08:52)
[2024-12-09] MEDS: HEPARIN 5,000 UNIT/ML VIAL 5000 UNIT SUBCUT ×2 (08:52→20:06)
[2024-12-09] MEDS: cefTRIAXone 1,000 MG in SODIUM CHLORIDE 0.9% 100 ML 200 MG IV (08:53)
[2024-12-09] MEDS: SODIUM CHLORIDE 0.9% FLUSH 10 ML IV ×2 (08:53→20:06)
--- NOTE | 2024-12-09 11:01 | DIET.PN1 ---
Dietary Progress Note Assessment: RD f/u Met with pt in room, reports tolerating general diet. Usually doesn't eat very much and is just doing small amounts of meals. Encouraged intakes to meet protein-energy needs and discussed protein options available. Tolerated protein smoothie yesterday, will continue today. Ht: 165.1 cm Wt: 63.8 kg BMI: 20.7 UBW: Last BM: 12/03/24 (12/03/24 16:07) MNA: 12 Abad Score: 20 Diet: 12/07/24 Lunch General (Regular) Diet Diet Modifications: Food Texture: Level 7 - Regular Liquid Consistency: Level 0 - Thin Nutrition Percent Meal Consumed 25% 12/07/24 18:00 Labs: RBC 3.77 X10^6/uL (4.0-5.2) L 12/07/24 04:07 Hgb 12.3 g/dL (12.0-16.0) 12/07/24 04:07 Hct 35.9 % (36-46) L 12/07/24 04:07 Creatinine 0.54 mg/dL (0.52-1.04) 12/09/24 04:23 Lactate 1.7 mmol/L (0.7-2.1) 11/30/24 09:02 Electronically Signed by: Sury Gillis 12/09/24 11:01 Clinical Dietitian [address] [address]
--- NOTE | 2024-12-09 11:19 | OT.IPNOTE ---
Attempted to see Teagan at 11:15 a.m. Nursing was present in room. Window curtains were being put down and lights were turned being turned off. Teagan verbalized that she needed some 'time to recover from her surgery', as well as 'needing some time to herself'. The plan is for her to still leave tomorrow morning but there are still things that need to be signed off on. OT to reattempt at later time.
[2024-12-09] MEDS: MAGNESIUM CHLORIDE 64 MG TABLET 128 MG PO (11:34)
[2024-12-09] MEDS: POTASSIUM CHLORIDE 20 MEQ TAB 40 MEQ PO (11:36)
--- NOTE | 2024-12-09 13:23 | OT.IPNOTE ---
Attempted to see patient. Patient appeared sound asleep; lights remain off, shades pulled down long-term to reduce light in room; television remained off. OT to try again at later time if schedule permits.
--- NOTE | 2024-12-09 14:33 | CM.DPC ---
DCP Cont. Reviewed EMR and team rounds for updates. Plan is for pt to d/c home tomorrow am w/spouse. Will fax [facility] the F/F orders on Saturday. Monitoring for any further evolving d/c needs.
--- NOTE | 2024-12-09 14:51 | PT.IPTN ---
Current Diagnoses Vascular disorder of intestine, unspecified (11/30/24) Unspecified intestinal obstruction, unspecified as to partial versus complete obstruction (11/30/24) Surgery Performed Operation Date: 12/03/24 14:45 Actual Procedures p EXPLORATORY LAPAROTOMY, ILEOCECECTOMY, ILEOSTOMY, MUCUS FISTULA - Leon Tovar MD Physical Therapy Treatment Note M2 PT-IP Current Condition Start: 12/05/24 12:42 Freq: NEEDED Status: Active Protocol: Document 12/05/24 11:10 AB (Rec: 12/05/24 13:05 AB Desktop) Physical Therapy Current Condition Current Condition Evaluation Date 12/05/24 Treatment Diagnosis s/p ex-lap with ileostomy; difficulty in walking Onset Date 11/30/24 M3 PT-IP Subjective Start: 12/05/24 12:42 Freq: NEEDED Status: Active Protocol: Document 12/09/24 14:45 KJ (Rec: 12/09/24 14:50 KJ [id number]) Subjective Physical Therapy Visit Type Type Treatment Note Visit Start Time 14:12 Visit Stop Time 14:43 Physical Therapy Visit Comments Patient Comments Says one doctor said she could go home but the other hasn't said yet. Therapy Pain Assessment Pain When Pain Assessed During Mobility Pain Present Pain Present Pain Reported Location Abdomen Pain Behaviors Holding Area Pain Management Re-positioning Techniques M4 PT-IP Mobility and Gait Start: 12/05/24 12:42 Freq: NEEDED Status: Active Protocol: Document 12/09/24 14:45 KJ (Rec: 12/09/24 14:50 KJ [id number]) PT-Transfer Assessment Sit to and From Stand Sit to and from Contact Guard Assistance Stand Gait Assessment Gait Gait Assistance Contact Guard Assist Required: Distance (Feet) 130 Assistive Devices Assistive Device Gait Belt,Front Wheeled Walker Orthotic/Prosthetic No Devices or Brace: Gait Deviations General Gait Pattern Within Normal Limits Comments Gait Comments Occ focuses on tasks such as finding glasses, leaving the walker behind. Verbal cuing to bring the walker with her. Stair Climbing Assessment Comments Stair Climbing Pt refused to try stairs today Comments PT-Balance Assessment Sitting Balance and Reactions Static Sitting Good Balance Ability Dynamic Sitting Good Balance Ability Standing Balance and Reactions Static Standing Good Balance Ability Dynamic Standing Fair Balance Ability M5 PT-IP Objective Assessments Start: 12/05/24 12:42 Freq: NEEDED Status: Active Protocol: Document 12/09/24 14:45 KJ (Rec: 12/09/24 14:50 KJ [id number]) Orientation Orientation/Cognition Level of Alertness Alert Orientation Name,Age,Birthday Safety Awareness Decreased Safety Awareness Comments Preoccupied, focusing on particular tasks. Gross Range of Motion Upper Extremity ROM Assessment Within Functional Limits Lower Extremity ROM Assessment Within Functional Limits M6 PT-IP Treatment Start: 12/05/24 12:42 Freq: NEEDED Status: Active Protocol: Document 12/09/24 14:45 KJ (Rec: 12/09/24 14:50 KJ [id number]) Physical Therapy Treatment Exercises Exercises Ankle Pumps M7 PT-IP Assessment and Plan Start: 12/05/24 12:42 Freq: NEEDED Status: Active Protocol: Document 12/09/24 14:45 KJ (Rec: 12/09/24 14:50 KJ [id number]) PT Summary Assessment and Plan Potential Rehabilitation Good Potential Status of Condition Evolving at Evaluation Summary Impairments Pain,Balance Progress Towards Progressing Toward Goals Goals Goals Bed Mobility Goal Independent Transfer Goal Independent Gait Goal Independent Gait Distance 150' Other Goals States there are no stairs in their home on [place] and elevator building in [place] Frequency of Treatment Frequency Of Once a Day Treatment Treatment Plan Physical Therapy Transfer Training,Gait Training,Balance Retraining Treatment Plan Recommendations To Nursing Amount of Assist 1 Person Assist Needed Discharge Recommendations PT Discharge Home with Assistance Recommendations Transportation Needs Private Vehicle at Discharge
--- NOTE | 2024-12-09 17:02 | PC.NURSE ---
Addendum entered by Fela Bedolla R.N. 12/09/24 19:01: Wound team up with pt, education on ostomy care. Original Note: Pt OOB in chair, walking in hallway with PCT. Worked with PT and OT. Plan for DC tomorrow. RA, iliostomy intact with good output. Midline incision intact and clean. Pt still very forgetful, bed and chair alarm utilized.
--- NOTE | 2024-12-09 17:11 | PM.PN.1 ---
Subjective Subjective Date Patient Seen: 12/09/24 Interval history: Chief complaint: Severe abdominal pain sepsis secondary to sigmoid colitis History of present illness and hospital course: She was an 84-year-old female who presented with abdominal pain and distention. She was evidence of distal sigmoid colitis and colonic dilation. 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 She was brought up from PACU to the ICU still intubated due to hypotension and pressor requirements. She was quickly extubated and weaned from pressors and downgraded on POD#1. 6/2: Tolerating regular diet asking to be discharged soon 6/3: Tolerating diet a bit confused no fevers Review of systems: No fevers or chills is hungry No headache diplopia No chest pain palpitations shortness for breath wheezing No nausea vomiting No abdominal pain Physical exam: Alert cogent no acute distress HEENT unremarkable Unlabored respirations Abdomen nontender output from ostomy Extremities no edema Assessment and plan: 1. 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 Tolerating diet and ready for discharge 2. HTN - held lisinopril and HCTZ given above sepsis. Have reumed lisinopril will restart HCTZ as well today. 3. HLD - resume statin, replaced rosuvastatin with atorvastatin 20 mg. Code: DNR, spouse is surrogate decision maker. DVT: HSQ Dispo: Inpatient status. Likely in the hospital for 1 more days prior to discharge home w/ home health per therapy recommendations. Time-Based Coding :: 35 minutes spent with patient and on the chart (including review of chart, obtaining history, exam, reviewing outside data, placing orders, documenting exam and treatment plan, and counseling patient) Exam Vital Signs (past 8 hours): - 12/09/24 11:46 12/09/24 11:46 12/09/24 15:19 Temperature 98 F Pulse Rate 77 Respiratory Rate 16 Blood Pressure 129/59 L 134/60 Pulse Oximetry 98 98 12/09/24 15:19 Temperature Pulse Rate 80 Respiratory Rate Blood Pressure Pulse Oximetry 99 Fraction of Inspired Oxygen 40 Oxygen Delivery Method Room Air Oxygen Flow Rate 0 Objective Labs 12/07/24 04:07 12/09/24 04:23 Labs: Laboratory Results - last 24 hr 12/09/24 04:23 Sodium 132 L Potassium 3.1 L Chloride 100 Carbon Dioxide 27 BUN 9 Creatinine 0.54 Estimated GFR > 60 BUN/Creatinine Ratio 16.7 Glucose 100 H Calcium 8.1 L Magnesium 1.7 PFSH Medical History Lymphadenopathy Dysarthria History of adenomatous polyp of colon Macular drusen Refractive error Surgical History S/P removal of right ovary Social History household members: spouse Smoking Status: Current some day smoker alcohol intake: current Assessment & Plan Time-Based Coding :: [TOTAL MINUTES] spent with patient and on the chart (including review of chart, obtaining history, exam, reviewing outside data, placing orders, documenting exam and treatment plan, and counseling patient) on [DATE]. Quality VTE Deep Vein Thrombosis/Pulmonary Embolism Present on Admission: No
--- NOTE | 2024-12-09 21:13 | PC.RNWOUND ---
Ostomy Nurse Consult Note. Patient awake and alert sitting up in the chair. Patient states she has been doing well today and walked in the hallways. Patient understands that today she will be changing her appliance. Set patient up with appliance. Patient removed applliance . Patient cut wafer, applied ostomy wafer with maria luz ring and place pouch. Patient did very well with this process and teaching session. Stomas beefy red, moist, 40cm and budded at 1.0c. Sutures intact. Draiange of green/brown liquid stool. Mid-line amber intact. Plan for [facility] to see patient on Saturday. I recommend to have patient [facility]. Supplies in room for patient to take home.
[2024-12-10] MEDS: metroNIDAZOLE 500 MG/100 ML PIGGYBACK 100 MG IV (03:43)
[2024-12-10 03:47] VITALS: BP 134/63; PULSE 91; RESP 16; TEMP 36.8; O2SAT 98
[2024-12-10 06:56] LABS: BUN Creatinine Ratio 17.3 (6-22); Blood Urea Nitrogen 9 mg/dL (7-17); Calcium 8.5 mg/dL (8.4-10.2); Carbon Dioxide 25 mmol/L (22-32); Chloride 101 mmol/L (98-107); Estimated Glomerular Filt Rate > 60 mL/min (>60); Glucose 104 mg/dL (70-99); HEMOLYSIS 38 (0-50); Potassium 3.9 mmol/L (3.4-5.1); Sodium 133 mmol/L (137-145)
[2024-12-10 08:00] VITALS: BP 130/60; PULSE 71; RESP 17; TEMP 36.6; O2SAT 97
--- NOTE | 2024-12-10 08:22 | P.PN_ITS ---
Subjective Subjective Date Patient Seen: 12/10/24 Time Patient Seen: 08:22 Interval history: Doing well. Ready for discharge Exam Vital Signs (past 8 hours): - 12/10/24 03:47 Temperature 98.2 F Pulse Rate 91 H Respiratory Rate 16 Blood Pressure 134/63 Pulse Oximetry 98 Fraction of Inspired Oxygen 40 Oxygen Delivery Method Room Air Oxygen Flow Rate 0 Const General: healthy appearing Objective Labs 12/07/24 04:07 12/10/24 06:00 Labs: Laboratory Results - last 24 hr 12/10/24 06:00 Sodium 133 L Potassium 3.9 Chloride 101 Carbon Dioxide 25 BUN 9 Creatinine 0.52 Estimated GFR > 60 BUN/Creatinine Ratio 17.3 Glucose 104 H Calcium 8.5 PFSH Medical History Lymphadenopathy Dysarthria History of adenomatous polyp of colon Macular drusen Refractive error Surgical History S/P removal of right ovary Social History household members: spouse Smoking Status: Current some day smoker alcohol intake: current Assessment & Plan Assessment and plan (1) Large bowel obstruction: Status: Acute Plan I will see her for a postop visit next week we will remove her amber. We will schedule her for a proctoscopy at that time. Time-Based Coding :: [TOTAL MINUTES] spent with patient and on the chart (including review of chart, obtaining history, exam, reviewing outside data, placing orders, documenting exam and treatment plan, and counseling patient) on [DATE]. Quality VTE Deep Vein Thrombosis/Pulmonary Embolism Present on Admission: No PROFEE Autopsy Assistant Document charge(s): No
[2024-12-10] MEDS: HEPARIN 5,000 UNIT/ML VIAL 5000 UNIT SUBCUT (08:28)
[2024-12-10] MEDS: CITALOPRAM 10 MG TABLET 30 MG PO (08:29)
[2024-12-10] MEDS: lisinopriL 10 MG TABLET PO (08:29)
[2024-12-10] MEDS: SODIUM CHLORIDE 0.9% FLUSH 10 ML IV (08:32)
[2024-12-10] MEDS: ATORVASTATIN 20 MG TABLET PO (08:32)
[2024-12-10] MEDS: hydroCHLOROthiazide 25 MG TABLET PO (08:32)
--- NOTE | 2024-12-10 08:55 | PM.DS.1 ---
History of Present Illness History of Present Illness Chief complaint: abdominal pain, Narrative: The patient was an 84-year-old female with a one-week history of abdominal discomfort. She presented because of abdomen bloating. She did have a normal bowel movement yesterday and denies diarrhea. No nausea, or vomiting. No fevers, or chills. She has a history of cholecystectomy and oophorectomy. She was no history of bowel obstruction. CT in the emergency department indicated colitis of the sigmoid colon and dilation of the proximal colon. She notes that this is preceded by working in the garden and being quite hot and probably being dehydrated. She feels that she over did it and did not hydrate enough. She does not have a history of symptoms like this before, denies any clear alleviating or aggravating actions with her pain. The pain does not radiate, and it does come and go. No rectal bleeding. She had a small BM which was normal yesterday. She was urinating less, but denies dysuria or hematuria. No nausea. She was a poor appetite. She does have mild abdominal bloating. Discharge Providers Provider Date of admission: 11/30/24 11:27 Discharge Date: 12/10/24 Primary care physician: Violetta Marin PA-C Consults: 12/01/24 11:28 Consult to General Surgery Routine Comment: Consulting Provider: Leon Tovar Reason for consultation: colitis and colonic air Has provider been notified: Yes 12/03/24 21:00 Consult to Dietitian, Adult Routine Comment: Reason For Exam: Patient on Ventilator and NPO 12/04/24 16:48 Consult to Occupational Therapy Evaluate & Treat Comment: Physician Instructions: Evaluate and treat Consult to Physical Therapy Evaluate & Treat Comment: Physician Instructions: Evaluate and Treat Discharge provider: Thaddeus Castaneda MD Summary Hospital Course Discharge Diagnosis: 1. 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 Tolerating diet and ready for discharge 2. HTN - held lisinopril and HCTZ given above sepsis. Have reumed lisinopril will restart HCTZ as well today. 3. HLD - resume statin, replaced rosuvastatin with atorvastatin 20 mg. Hospital Course: She was an 84-year-old female who presented with abdominal pain and distention. She was evidence of distal sigmoid colitis and colonic dilation. 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 She was brought up from PACU to the ICU still intubated due to hypotension and pressor requirements. She was quickly extubated and weaned from pressors and downgraded on POD#1. 6/2: Tolerating regular diet asking to be discharged soon 6/3: Tolerating diet a bit confused no fevers Status at Discharge Cognitive/behavioral status at discharge: at baseline, confused Functional status at discharge: uses cane/walker Overall status at discharge: patient is progressing back to baseline Time Spent with Patient Time spent: Greater than 30 minutes Exam Vital Signs (past 8 hours): - 12/10/24 03:47 Temperature 98.2 F Pulse Rate 91 H Respiratory Rate 16 Blood Pressure 134/63 Pulse Oximetry 98 Fraction of Inspired Oxygen 40 Oxygen Delivery Method Room Air Oxygen Flow Rate 0 Narrative Exam Narrative: NAD, alert and oriented. Fluent speech. Lungs are clear, normal rate and effort. Heart is regular, no murmur gallop or rub. Abdomen is soft, non distended. Extremities are free of edema. Objective Labs 12/07/24 04:07 12/10/24 06:00 Labs: Laboratory Results - last 24 hr 12/10/24 06:00 Sodium 133 L Potassium 3.9 Chloride 101 Carbon Dioxide 25 BUN 9 Creatinine 0.52 Estimated GFR > 60 BUN/Creatinine Ratio 17.3 Glucose 104 H Calcium 8.5 PFSH Medical History Lymphadenopathy Dysarthria History of adenomatous polyp of colon Macular drusen Refractive error Surgical History S/P removal of right ovary Social History household members: spouse alcohol intake: current Discharge Assessment & Plan Assessment and Plan Assessment: 1. 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 Tolerating diet and ready for discharge Plan of Treatment: Home with and surgical follow up. No further antibiotics. Discharge Plan Discharge Plan Patient Disposition: Home Health Service Provider Discharge Comment: Stable for discharge. Discharge orders & Medications Prescriptions: Continued citalopram 20 mg tablet 30 mg PO DAILY Rx Instructions: takes at noon famotidine 20 mg Tablet 20 mg PO BID rosuvastatin 10 mg tablet 10 mg PO DAILY Qty: 60 0RF lisinopril 10 mg tablet 10 mg PO DAILY hydrochlorothiazide 25 mg tablet 25 mg PO DAILY Medication counseling provided by Pharmacist: No Follow up/Referrals: Violetta Marin, PAFidencioC [Primary Care Provider, Medical] Diet/Activity/Treatments Diet: Diet as Tolerated Skin/Wound/Dressing Care Report to your healthcare provider any signs of infection, such as:: chills, fever and increased pain Visit Report/Discharge Packet Instructions: DI for Colectomy Stand Alone Forms: Patient Portal/API, Surgery Discharge Discharge Data Primary Care Provider: Violetta Marin Quality VTE Deep Vein Thrombosis/Pulmonary Embolism Present on Admission: No
--- NOTE | 2024-12-10 10:08 | PC.NURSE ---
DR MILLARD / DR SPEARS IN TO DISCUSS PLAN OF CARE WITH PATIENT/ . DISCUSSED D/C PACKET WITH PATIENT/ . ALL QUESTIONS ANSWERED. IV'S REMOVED. ALL BELONGINGS WITH PATIENT.
--- NOTE | 2024-12-10 11:10 | CM.DPC ---
DCP Discharge Home with HH Per MD, pt medically stable to d/c home today with outpt f/u and discharge orders placed and no identified barriers to discharge. Per RN, spouse bedside and agreeable with transporting pt home today and have ferry reservation already made and provided discharge instructions. SW notified [facility] on pt's d/c home and d/c summary, F2F and orders sent. Per msg from Wound RN Afia, supplies provided and ostomy functioning well and multiple teaches completed and pt already has outpt f/u scheduled with [facility]. Dulce Maria Salomon, SONG LYRICIST
--- NOTE | 2025-01-29 19:28 | P.PN_ITS ---
Subjective Subjective Date Patient Seen: 12/08/24 Interval history: Chief complaint: Severe abdominal pain sepsis secondary to sigmoid colitis History of present illness and hospital course: She was an 84-year-old female who presented with abdominal pain and distention. She was evidence of distal sigmoid colitis and colonic dilation. 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 She was brought up from PACU to the ICU still intubated due to hypotension and pressor requirements. She was quickly extubated and weaned from pressors and downgraded on POD#1. 6/2: Tolerating regular diet asking to be discharged soon 6/3: TOLERATING DIET A LITTLE CONFUSED Review of systems: No fevers or chills is hungry No headache diplopia No chest pain palpitations shortness for breath wheezing No nausea vomiting No abdominal pain Physical exam: Alert cogent no acute distress HEENT unremarkable Unlabored respirations Abdomen nontender output from ostomy Extremities no edema Assessment and plan: 1. Septic shock due to cecal perforation, shock not present on admission developed after admission, resolved - s/p ex-lap with end ileostomy and mucous fistula on 12/03. Remained intubated due to presumed shock on levophed after surgery. - now improved and off pressors, extubated on POD#1 early AM. - now advanced to clears per surgeon, given lack of appetite recommends waiting until tomorrow for further advancement of diet. - appreciate surgical consultation, advance diet per surgeon. - continue PT/OT 2. HTN - held lisinopril and HCTZ given above sepsis. Have reumed lisinopril will restart HCTZ as well today. 3. HLD - resume statin, replaced rosuvastatin with atorvastatin 20 mg. Code: DNR, spouse is surrogate decision maker. DVT: HSQ Dispo: Inpatient status. Likely in the hospital for 1 more days prior to discharge home w/ home health per therapy recommendations. Time-Based Coding :: 35 minutes spent with patient and on the chart (including review of chart, obtaining history, exam, reviewing outside data, placing orders, documenting exam and treatment plan, and counseling patient) Exam Vital Signs (past 8 hours): Fraction of Inspired Oxygen 40 Oxygen Delivery Method Room Air Oxygen Flow Rate 0 Objective Labs 12/07/24 04:07 12/10/24 06:00 REPLACED BY [facility] Medical History Lymphadenopathy Dysarthria History of adenomatous polyp of colon Macular drusen Refractive error Surgical History S/P removal of right ovary Social History household members: spouse alcohol intake: current Assessment & Plan Time-Based Coding :: [TOTAL MINUTES] spent with patient and on the chart (including review of chart, obtaining history, exam, reviewing outside data, placing orders, documenting exam and treatment plan, and counseling patient) on [DATE]. Quality VTE Deep Vein Thrombosis/Pulmonary Embolism Present on Admission: No
== END 2024-12-10 10:34 | disposition home health service (06) | DRG 329 ==
LOC: ED 10:19 → AC 11:28 → ICU 12-03 20:31
PROVIDERS: Internal Medicine; Surgery; Admitting Provider Hospitalist; Emergency Provider Emergency Medicine; PCP Physician Assistant Medical; Referring Provider Emergency Medicine; Visit Provider Hospitalist
PROC: 0DTE0ZZ Resection of Large Intestine, Open Approach (ICD-10-PCS; principal; 2024-12-03 14:45)
DX: K63.1 Perforation of intestine (nontraumatic) (principal); A41.9 Sepsis, unspecified organism; R65.21 Severe sepsis with septic shock; K55.9 Vascular disorder of intestine, unspecified; K56.609 Unspecified intestinal obstruction, unspecified as to partial versus complete obstruction; R47.1 Dysarthria and anarthria; E86.9 Volume depletion, unspecified; I10 Essential (primary) hypertension; E87.6 Hypokalemia; E78.5 Hyperlipidemia, unspecified; F17.200 Nicotine dependence, unspecified, uncomplicated; Z66 Do not resuscitate
CPT/HCPCS: 36415; 36600; 44144; 71045; 74018; 74177; 80048; 80053; 81003; 81015; 82805; 83605; 83690; 83735; 85007; 85025; 85610; 85730; 87040; 93005; 94002; 94003; 94799; 96365; 96367; 96368; 96375; 97116; 97162; 97165; 97530; 99232; 99233; 99284; 99291; J0131; J0330; J0666; J0696; J1100; J1171; J1644; J2405; J2704; J3010

== ENCOUNTER → 2024-12-15 08:45 | Outpatient (CLI) | payer OTHER, SELFPAY ==
[2024-11-30 11:37] VITALS: BMI 20.7
[2024-12-04 07:41] VITALS: RESP 17
[2024-12-04 08:10] VITALS: PULSE 86; RESP 24; O2SAT 98
== END ==
PROVIDERS: Family Provider Physician Assistant Medical; PCP Physician Assistant Medical; Referring Provider Hospitalist; Visit Provider Surgery
DX: K94.09 Other complications of colostomy (principal); I89.0 Lymphedema, not elsewhere classified; I10 Essential (primary) hypertension; R47.1 Dysarthria and anarthria; Z86.0100 Personal history of colon polyps, unspecified
CPT/HCPCS: 99203; 99213

== ENCOUNTER → 2024-12-15 11:30 | Outpatient (CLI) | payer OTHER, SELFPAY ==
[2024-11-30 11:37] VITALS: BMI 20.7
[2024-12-04 07:41] VITALS: RESP 17
[2024-12-04 08:10] VITALS: PULSE 86; RESP 24; O2SAT 98
[2024-12-15 12:20] LABS: Add Manual Diff / Slide Review NO; Basophils Absolute Auto 100 /uL (0-100); Basophils Percent Auto 0.6 % (0-2); Eosinophils Absolute Auto 0 /uL (0-450); Eosinophils Percent Auto 0.4 % (2-4); Hematocrit 39.4 % (36-46); Hemoglobin 13.4 g/dL (12.0-16.0); Lymphocytes Absolute Auto 1300 /uL (1100-4500); Lymphocytes Percent Auto 11.2 % (25-40); Mean Corpuscular HGB Conc 34.1 % (30-36); Mean Corpuscular Hemoglobin 32.5 PG (26-34); Mean Corpuscular Volume 95.5 fL (80-100); Monocytes Absolute Auto 800 /uL (0-900); Neutrophils Absolute Auto 9700 /uL (1500-7000); Neutrophils Percent Auto 80.8 % (50-75); Platelet Count 524 X10^3/uL (150-400); Red Blood Cell Count 4.13 X10^6/uL (4.0-5.2); Red Cell Distribution Width 14.2 % (11.6-14.8)
== END ==
PROVIDERS: Family Provider Physician Assistant Medical; Referring Provider Surgery; Visit Provider Surgery
DX: K56.609 Unspecified intestinal obstruction, unspecified as to partial versus complete obstruction (principal)
CPT/HCPCS: 36415; 85025

== ENCOUNTER 2024-12-16 12:26 | Emergency (ER) | payer OTHER, SELFPAY ==
[2024-11-30 11:37] VITALS: BMI 20.7
[2024-12-04 07:41] VITALS: RESP 17
[2024-12-04 08:10] VITALS: PULSE 86; RESP 24; O2SAT 98
[2024-12-16] VITALS (19 sets, daily range): BP systolic 91–126; BP diastolic 42–78; PULSE 78–99; RESP 19–95; TEMP 36.5–36.9; O2SAT 95–100
--- NOTE | 2024-12-16 12:33 | PC.NURSE ---
Patient now complaining that her heart hurts. EKG and troponin ordered.
--- NOTE | 2024-12-16 12:34 | EKG_ITS ---
[address] [address] Test Date: 2024-12-16 Pat Name: Teagan Feliciano Department: Room: Gender: Female [employer]: ANT : 1940 Requested By: Order Number: [id number] Reading MD: Parvez Garcia Measurements Intervals [place] Rate: 86 P: 79 PA: 174 QRS: -29 QRSD: 70 T: 83 QT: 384 QTc: 459 Interpretive Statements Normal sinus rhythm Electronically Signed On 12-18-2024 0:11:37 PDT by Parvez Garcia
[2024-12-16 13:03] LABS: Add Manual Diff / Slide Review NO; Basophils Absolute Auto 100 /uL (0-100); Basophils Percent Auto 0.5 % (0-2); Eosinophils Absolute Auto 0 /uL (0-450); Eosinophils Percent Auto 0.2 % (2-4); Hematocrit 35.1 % (36-46); Hemoglobin 11.9 g/dL (12.0-16.0); Lymphocytes Absolute Auto 1700 /uL (1100-4500); Lymphocytes Percent Auto 9.5 % (25-40); Mean Corpuscular Hemoglobin 32.7 PG (26-34); Mean Corpuscular Volume 96.3 fL (80-100); Monocytes Absolute Auto 800 /uL (0-900); Monocytes Percent Auto 4.6 % (3-14); Neutrophils Absolute Auto 15300 /uL (1500-7000); Neutrophils Percent Auto 85.2 % (50-75); Platelet Count 437 X10^3/uL (150-400); Red Blood Cell Count 3.64 X10^6/uL (4.0-5.2); Red Cell Distribution Width 14.3 % (11.6-14.8); White Blood Cell Count 17.9 X10^3/uL (4.5-11.0)
[2024-12-16 13:15] LABS: Creatine Kinase 79 U/L (30-135)
[2024-12-16 13:17] LABS: Alanine Aminotransferase 17 IU/L (<35); Albumin Globulin Ratio 1.4 (1.0-2.8); Alkaline Phosphatase 115 U/L (38-126); Aspartate Aminotransferase 37 IU/L (14-36); BUN Creatinine Ratio 12.5 (6-22); Bilirubin Total 1.1 mg/dL (0.2-1.3); Blood Urea Nitrogen 45 mg/dL (7-17); Calcium 9.7 mg/dL (8.4-10.2); Carbon Dioxide 13 mmol/L (22-32); Chloride 98 mmol/L (98-107); Estimated Glomerular Filt Rate 12 mL/min (>60); Globulin 2.9 g/dL (1.7-4.1); Glucose 233 mg/dL (70-99); HEMOLYSIS < 15 (0-50); Lipase 455 U/L (23-300); Potassium 4.9 mmol/L (3.4-5.1); Sodium 129 mmol/L (137-145); Total Protein 6.9 g/dL (6.3-8.2)
[2024-12-16 13:28] LABS: Troponin I < 0.012 ng/mL (0.01-0.034)
[2024-12-16] MEDS: fentaNYL 100 MCG/2 ML INJ IV (13:33)
[2024-12-16] MEDS: ONDANSETRON 4 MG/2 ML INJ IV (13:34)
--- NOTE | 2024-12-16 13:57 | ED.ABDPAIN ---
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 She denies fevers or chills. She denies any chest pain or shortness of breath. She states she has been having abdominal pain on and off. She states she has been having some nausea and vomiting for the past day or 2. She states she was had some stool output. She was confused. She notes that during her hospitalization she does not recall any of it. Patient does not appreciate any urinary changes. It is noted that her left lower extremity is discolored compared to her right she was unaware of this. She states she does take medications but does not recall what they were. She states has had prior surgeries but does not recall what they were. No known drug allergies. Former smoker, no alcohol, no recreational drugs. Related Data Home Medications ?Medication ?Instructions ?Recorded ?Confirmed hydrochlorothiazide 25 mg tablet 25 mg PO DAILY 01/03/21 12/15/24 lisinopril 10 mg tablet 10 mg PO DAILY 03/19/22 12/15/24 citalopram 20 mg tablet 30 mg PO DAILY 11/30/24 12/15/24 famotidine 20 mg tablet 20 mg PO BID 11/30/24 12/15/24 Previous Rx's ?Medication ?Instructions ?Recorded rosuvastatin 10 mg tablet 10 mg PO DAILY #60 tabs 03/15/22 Allergies Allergy/AdvReac Type Severity Reaction Status Date / Time pollen extracts Allergy Unknown Verified 12/16/24 12:25 Review of Systems <DO Fidencio Patel Last Filed: 12/17/24 19:10> Review of Systems ROS Unobtainable: All systems reviewed & are unremarkable except as noted in HPI and below Patient History <Lala Simms DO - Last Filed: 12/17/24 19:10> Medical History Lymphadenopathy Dysarthria History of adenomatous polyp of colon Macular drusen Refractive error Surgical History S/P removal of right ovary Social History household members: spouse alcohol intake: current tobacco type: cigarettes Exam <Lala Simms DO - Last Filed: 12/17/24 19:10> Narrative Exam Narrative: GENERAL: Alert and oriented to self, she notes she was at the hospital but not which one. Conversant. HEENT: Head normocephalic, atraumatic, EOMI, pupils reactive, face symmetric, moist mucous membranes NECK: Supple, full range of motion CARDIOVASCULAR: Regular rate and rhythm without murmurs, rubs or gallops. RESPIRATORY: Breath sounds equal bilaterally, no wheezes rales or rhonchi. ABDOMEN: Soft, nontender. Normoactive bowel sounds all 4 quadrants. No guarding or rebound, rigidity, no mass, patient has ostomy draining liquidy brown stool. : No CVA tenderness EXTREMITIES: Normal range of motion, no clubbing. No palpable in the left foot, patient does have cyanosis and discoloration of the left lower extremity compared to the right. Temperature has the same to touch. Patient has a dopplerable pulse in the left foot. She was have range of motion. She was sensation to touch. NEUROLOGICAL: Cranial nerves II through XII grossly intact. Moving all extremities SKIN: Warm, dry, no petechiae, no rashes or lesions. Initial Vital Signs Initial Vital Signs: Vital Signs Temperature 97.7 F 12/16/24 12:25 Pulse Rate 89 12/16/24 12:25 Respiratory Rate 24 12/16/24 12:25 Blood Pressure 105/54 L 12/16/24 12:25 Pulse Oximetry 100 12/16/24 12:25 Oxygen Delivery Method Room Air 12/16/24 12:25 <Aminata Quintanilla MD - Last Filed: 12/17/24 07:04> Initial Vital Signs Initial Vital Signs: Vital Signs Temperature 97.7 F 12/16/24 12:25 Pulse Rate 89 12/16/24 12:25 Respiratory Rate 24 12/16/24 12:25 Blood Pressure 105/54 L 12/16/24 12:25 Pulse Oximetry 100 12/16/24 12:25 Oxygen Delivery Method Room Air 12/16/24 12:25 Course <Lala Simms, - Last Filed: 12/17/24 19:10> Orders Ordered: Discontinued Medications Fentanyl (Fentanyl 100 Mcg/2 Ml Inj) 100 mcg IV NOW ONE Stop: 12/16/24 13:25 Last Admin: 12/16/24 13:33 Dose: 100 mcg Documented By: LEONARDO Heparin Sodium (Porcine) (Heparin 5,000 Unit/Ml Vial) 4,500 unit 80 unit/kg (4500 unit) IV NOW ONE Stop: 12/16/24 15:57 Last Admin: 12/16/24 16:30 Dose: 4,500 unit Documented By: LEONARDO Piperacillin Sod/Tazobactam (Sod 4.5 gm/ Sodium Chloride) 100 mls @ 200 mls/hr IV NOW ONE Stop: 12/16/24 14:36 Last Infusion: 12/16/24 17:30 Dose: Infused Documented By: Admin: 12/16/24 16:26 Dose: 200 mls/hr Documented By: LEONARDO Lactated Ringer's (Lactated Ringers) 500 mls @ 1,000 mls/hr IV BOLUS ONE Stop: 12/16/24 15:09 Last Admin: 12/16/24 17:36 Dose: Not Given Documented By: LEONARDO Lactated Ringer's (Lactated Ringers) 1,000 mls @ 1,000 mls/hr IV BOLUS ONE Stop: 12/16/24 16:39 Last Infusion: 12/16/24 16:16 Dose: Infused Documented By: Admin: 12/16/24 15:47 Dose: 1,000 mls/hr Documented By: LEONARDO Heparin Sodium/Dextrose (Heparin Drip) 25,000 unit in 500 mls @ 19.595 mls/hr IV CONT SOLO; Protocol Last Titration: 12/17/24 00:02 Dose: 14 units/kg/hr, 15.241 mls/hr Documented By: LEONARDO Co-signed By: EMMANUEL Titration: 12/16/24 23:29 Dose: 0 units/kg/hr, 0 mls/hr Documented By: LEONARDO Co-signed By: JOHN Admin: 12/16/24 16:55 Dose: 18 units/kg/hr, 19.595 mls/hr Documented By: BOGDAN Co-signed By: FAVIO Sodium Chloride (Normal Saline 0.9%) 500 mls @ 1,000 mls/hr IV BOLUS ONE Stop: 12/16/24 17:59 Last Infusion: 12/16/24 18:35 Dose: Infused Documented By: Admin: 12/16/24 17:43 Dose: 1,000 mls/hr Documented By: LEONARDO Sodium Chloride (Normal Saline 0.9%) 1,000 mls @ 150 mls/hr IV CONT SOLO Last Infusion: 12/17/24 00:09 Dose: 150 mls/hr Documented By: Admin: 12/16/24 20:35 Dose: 150 mls/hr Documented By: LEONARDO Ondansetron HCl (Ondansetron 4 Mg/2 Ml Inj) 4 mg IV NOW PRN PRN Reason: Nausea And Vomiting Last Admin: 12/16/24 13:34 Dose: 4 mg Documented By: LEONARDO Ondansetron HCl (Ondansetron 4 Mg Odt) 4 mg PO NOW PRN PRN Reason: Nausea And Vomiting Vital Signs Vital signs: Vital Signs - 8 hr 12/16/24 23:20 12/17/24 00:00 Temperature 98.5 F Pulse Rate 98 H 82 Respiratory Rate 20 20 Blood Pressure 96/42 L 92/54 L Pulse Oximetry 98 Oxygen Delivery Method Room Air Room Air <Aminata Quintanilla MD - Last Filed: 12/17/24 07:04> Orders Ordered: Discontinued Medications Fentanyl (Fentanyl 100 Mcg/2 Ml Inj) 100 mcg IV NOW ONE Stop: 12/16/24 13:25 Last Admin: 12/16/24 13:33 Dose: 100 mcg Documented By: LEONARDO Heparin Sodium (Porcine) (Heparin 5,000 Unit/Ml Vial) 4,500 unit 80 unit/kg (4500 unit) IV NOW ONE Stop: 12/16/24 15:57 Last Admin: 12/16/24 16:30 Dose: 4,500 unit Documented By: LEONARDO Piperacillin Sod/Tazobactam (Sod 4.5 gm/ Sodium Chloride) 100 mls @ 200 mls/hr IV NOW ONE Stop: 12/16/24 14:36 Last Infusion: 12/16/24 17:30 Dose: Infused Documented By: Admin: 12/16/24 16:26 Dose: 200 mls/hr Documented By: LEONARDO Lactated Ringer's (Lactated Ringers) 500 mls @ 1,000 mls/hr IV BOLUS ONE Stop: 12/16/24 15:09 Last Admin: 12/16/24 17:36 Dose: Not Given Documented By: LEONARDO Lactated Ringer's (Lactated Ringers) 1,000 mls @ 1,000 mls/hr IV BOLUS ONE Stop: 12/16/24 16:39 Last Infusion: 12/16/24 16:16 Dose: Infused Documented By: Admin: 12/16/24 15:47 Dose: 1,000 mls/hr Documented By: LEONARDO Heparin Sodium/Dextrose (Heparin Drip) 25,000 unit in 500 mls @ 19.595 mls/hr IV CONT SOLO; Protocol Last Titration: 12/17/24 00:02 Dose: 14 units/kg/hr, 15.241 mls/hr Documented By: LEONARDO Co-signed By: EMMANUEL Titration: 12/16/24 23:29 Dose: 0 units/kg/hr, 0 mls/hr Documented By: LEONARDO Co-signed By: JOHN Admin: 12/16/24 16:55 Dose: 18 units/kg/hr, 19.595 mls/hr Documented By: BOGDAN Co-signed By: FAVIO Sodium Chloride (Normal Saline 0.9%) 500 mls @ 1,000 mls/hr IV BOLUS ONE Stop: 12/16/24 17:59 Last Infusion: 12/16/24 18:35 Dose: Infused Documented By: Admin: 12/16/24 17:43 Dose: 1,000 mls/hr Documented By: LEONARDO Sodium Chloride (Normal Saline 0.9%) 1,000 mls @ 150 mls/hr IV CONT SOLO Last Infusion: 12/17/24 00:09 Dose: 150 mls/hr Documented By: Admin: 12/16/24 20:35 Dose: 150 mls/hr Documented By: LEONARDO Ondansetron HCl (Ondansetron 4 Mg/2 Ml Inj) 4 mg IV NOW PRN PRN Reason: Nausea And Vomiting Last Admin: 12/16/24 13:34 Dose: 4 mg Documented By: LEONARDO Ondansetron HCl (Ondansetron 4 Mg Odt) 4 mg PO NOW PRN PRN Reason: Nausea And Vomiting Vital Signs Vital signs: Vital Signs - 8 hr 12/16/24 23:20 12/17/24 00:00 Temperature 98.5 F Pulse Rate 98 H 82 Respiratory Rate 20 20 Blood Pressure 96/42 L 92/54 L Pulse Oximetry 98 Oxygen Delivery Method Room Air Room Air MDM - Abdominal Pain <Lala Simms, - Last Filed: 12/17/24 19:10> Lab Data 12/16/24 12:50 12/16/24 12:50 Labs: Lab Results 12/16/24 12/16/24 12/16/24 Range/Units 12:50 15:57 17:21 WBC 17.9 H (4.5-11.0) X10^3/uL RBC 3.64 L (4.0-5.2) X10^6/uL Hgb 11.9 L (12.0-16.0) g/dL Hct 35.1 L (36-46) % MCV 96.3 (80-100) fL MCH 32.7 (26-34) PG MCHC 34.0 (30-36) % RDW 14.3 (11.6-14.8) % Plt Count 437 H (150-400) X10^3/uL Neut % (Auto) 85.2 H (50-75) % Lymph % (Auto) 9.5 L (25-40) % [place] % (Auto) 4.6 (3-14) % Eos % (Auto) 0.2 L (2-4) % Baso % (Auto) 0.5 (0-2) % Neut # (Auto) 59393 H (2283-1665) /uL Lymph # (Auto) 1700 (9017-3932) /uL [place] # (Auto) 800 (0-900) /uL Eos # (Auto) 0 (0-450) /uL Baso # (Auto) 100 (0-100) /uL PT 11.3 (9.4-12.5) SECONDS INR 1.0 (0.9-1.3) APTT 28 (25.1-36.5) SECONDS Sodium 129 L (137-145) mmol/L Potassium 4.9 (3.4-5.1) mmol/L Chloride 98 (98-107) mmol/L Carbon Dioxide 13 L (22-32) mmol/L BUN 45 H (7-17) mg/dL Creatinine 3.60 H (0.52-1.04) mg/dL Estimated GFR 12 L (>60) mL/min BUN/Creatinine Ratio 12.5 (6-22) Glucose 233 H D (70-99) mg/dL Lactate 3.5 H (0.7-2.1) mmol/L Calcium 9.7 (8.4-10.2) mg/dL Total Bilirubin 1.1 (0.2-1.3) mg/dL AST 37 H (14-36) IU/L ALT 17 (<35) IU/L Alkaline Phosphatase 115 (38-126) U/L Total Creatine Kinase 79 (30-135) U/L Troponin I < 0.012 (0.01-0.034) ng/mL NT-Pro-B Natriuret Pep (<450) pg/mL Total Protein 6.9 (6.3-8.2) g/dL Albumin 4.0 (3.5-5.0) g/dL Globulin 2.9 (1.7-4.1) g/dL Albumin/Globulin Ratio 1.4 (1.0-2.8) Lipase 455 H (23-300) U/L Procalcitonin 0.306 (<0.5) ng/mL Urine Color Dark yellow Urine Appearance Sl cloudy Urine pH 5.5 (4.5-8.0) Ur Specific [place]le >=1.030 H (1.000-1.035) Urine Protein 2+ H (Negative) Urine Glucose (UA) Negative (Negative) g/dL Urine Ketones Trace H (NEGATIVE) Urine Occult Blood 1+ H (Negative) Urine Nitrate Negative (Negative) Urine Bilirubin 1+ H (NEGATIVE) Ur Bilirubin Confirm Negative (Negative) Urine Urobilinogen 0.2 (0.2) E.U./dL Ur Leukocyte Esterase Negative (NEGATIVE) Urine RBC 0-1/hpf (0-5/HPF) Urine WBC 1-5/hpf (0-5/HPF) Ur Squamous Epith Cells 5-10 /hpf H (0-5/HPF) Calcium Oxalate Crystal Occasional H Amorphous Sediment 2+ Urine Bacteria Few (2-10) H (None) Hyaline Casts 1-5/lpf (None) Urine Mucus 1+ H (Negative) Ur Culture Indicated? Cult not indicated Vol Urine Centrifuged Low vol <10ml (spun) A 12/16/24 12/16/24 12/16/24 Range/Units 18:19 20:18 23:00 WBC (4.5-11.0) X10^3/uL RBC (4.0-5.2) X10^6/uL Hgb (12.0-16.0) g/dL Hct (36-46) % MCV (80-100) fL MCH (26-34) PG MCHC (30-36) % RDW (11.6-14.8) % Plt Count (150-400) X10^3/uL Neut % (Auto) (50-75) % Lymph % (Auto) (25-40) % [place] % (Auto) (3-14) % Eos % (Auto) (2-4) % Baso % (Auto) (0-2) % Neut # (Auto) (4730-0266) /uL Lymph # (Auto) (8690-6256) /uL [place] # (Auto) (0-900) /uL Eos # (Auto) (0-450) /uL Baso # (Auto) (0-100) /uL PT (9.4-12.5) SECONDS INR (0.9-1.3) APTT 154 H* D (25.1-36.5) SECONDS Sodium (137-145) mmol/L Potassium (3.4-5.1) mmol/L Chloride (98-107) mmol/L Carbon Dioxide (22-32) mmol/L BUN (7-17) mg/dL Creatinine (0.52-1.04) mg/dL Estimated GFR (>60) mL/min BUN/Creatinine Ratio (6-22) Glucose (70-99) mg/dL Lactate 1.7 (0.7-2.1) mmol/L Calcium (8.4-10.2) mg/dL Total Bilirubin (0.2-1.3) mg/dL AST (14-36) IU/L ALT (<35) IU/L Alkaline Phosphatase (38-126) U/L Total Creatine Kinase (30-135) U/L Troponin I (0.01-0.034) ng/mL NT-Pro-B Natriuret Pep 208 (<450) pg/mL Total Protein (6.3-8.2) g/dL Albumin (3.5-5.0) g/dL Globulin (1.7-4.1) g/dL Albumin/Globulin Ratio (1.0-2.8) Lipase (23-300) U/L Procalcitonin (<0.5) ng/mL Urine Color Urine Appearance Urine pH (4.5-8.0) Ur Specific [place] (1.000-1.035) Urine Protein (Negative) Urine Glucose (UA) (Negative) g/dL Urine Ketones (NEGATIVE) Urine Occult Blood (Negative) Urine Nitrate (Negative) Urine Bilirubin (NEGATIVE) Ur Bilirubin Confirm (Negative) Urine Urobilinogen (0.2) E.U./dL Ur Leukocyte Esterase (NEGATIVE) Urine RBC (0-5/HPF) Urine WBC (0-5/HPF) Ur Squamous Epith Cells (0-5/HPF) Calcium Oxalate Crystal Amorphous Sediment Urine Bacteria (None) Hyaline Casts (None) Urine Mucus (Negative) Ur Culture Indicated? Vol Urine Centrifuged ECG Data Attestation: I personally reviewed and interpreted this ECG as follows: Interpretation: Sinus rhythm rate 86 NE 174 QRS is 70 QTC of 459, no acute ST elevation. Leads 2 3 and AVF somewhat peaked T-waves but not appreciated in other leads. Patient has prior from 11/30/2024 T-waves are not peaked in 2 3 and AVF but otherwise appears similar. [facility] Narrative Medical decision making narrative: EKG shows sinus rhythm, peaked T-waves in 2 3 and AVF no other acute ST changes. Labs show white count of 17, hemoglobin of 11 platelets of 437. Coags are normal, sodium is 129 has dropped back down but was 130 on 12/08/2024 creatinine is 3.6 which has a new changes 0.5216 525 with a BUN of 45 CO2 of 13 chloride 98 potassium 4 9. Bilirubin is 1.1 AST is 37 ALT 17 alk-phos is 115 lipase is 455 with a troponin of less than 0.012. Procalcitonin 0.306, lactate 3.5. CT KUB, status post right lower quadrant ileostomy without complications seen. Generalized wall thickening seen with the colon worse within the ascending colon. Cholecystectomy with stable mild enlargement of the common bile duct of 12 mm. DVT ultrasound left lower extremity, prelim shows clot. From a read as extensive left lower extremity DVT including involving the external iliac vein and a portion of the IVC. Arterial ultrasound left lower extremity, prelim has flow. Patient had lactate, procalcitonin cultures added on, concern by possible arterial occlusion versus DVT of the left lower extremity suspect this maybe source for pain but CT KUB was obtained. CT runoff was not obtained initially as patient's creatinine is 3.6 up from prior at 0.5 to 6 days ago. Spoke with patient and family they are agreeable to treatment, patient is full code at this time but they note they would not want prolonged efforts. Reviewed all findings with the patient and her . Has been does note she does not take any anticoagulants. Patient was hypotensive receiving fluids, it was covered with antibiotics for potential infection/sepsis. Received 2 L of lactated Ringer's 1 L was from EMS. Patient was signed Zofran and fentanyl here in the department. Started on heparin for DVT. Because of patient's recent surgery, acute renal failure likely needs transfer some continue with heparin at this time. Spoke with coordinator . Do not have any bed availability for several days. Moriah saab, spoke with coordinator at 5:51 p.m. awaiting call back. Meds patient received 2 L of lactated Ringer's has not really had 10 mL of urine out received another 500 mL bolus of NS. Has had Zosyn, Zofran and fentanyl, patient was started on heparin drip. Spoke with Dr. López vascular, possible percutaneous thrombectomy. Happy to see. Asks that we talk with hospitalist. Coordinator as paging out hospitalist Patient signed out to Dr. Quintanilla while awaiting transfer. <Aminata Quintanilla MD - Last Filed: 12/17/24 07:04> Lab Data Labs: Lab Results 12/16/24 12/16/24 12/16/24 Range/Units 12:50 15:57 17:21 WBC 17.9 H (4.5-11.0) X10^3/uL RBC 3.64 L (4.0-5.2) X10^6/uL Hgb 11.9 L (12.0-16.0) g/dL Hct 35.1 L (36-46) % MCV 96.3 (80-100) fL MCH 32.7 (26-34) PG MCHC 34.0 (30-36) % RDW 14.3 (11.6-14.8) % Plt Count 437 H (150-400) X10^3/uL Neut % (Auto) 85.2 H (50-75) % Lymph % (Auto) 9.5 L (25-40) % [place] % (Auto) 4.6 (3-14) % Eos % (Auto) 0.2 L (2-4) % Baso % (Auto) 0.5 (0-2) % Neut # (Auto) 74999 H (0353-9188) /uL Lymph # (Auto) 1700 (4949-9093) /uL [place] # (Auto) 800 (0-900) /uL Eos # (Auto) 0 (0-450) /uL Baso # (Auto) 100 (0-100) /uL PT 11.3 (9.4-12.5) SECONDS INR 1.0 (0.9-1.3) APTT 28 (25.1-36.5) SECONDS Sodium 129 L (137-145) mmol/L Potassium 4.9 (3.4-5.1) mmol/L Chloride 98 (98-107) mmol/L Carbon Dioxide 13 L (22-32) mmol/L BUN 45 H (7-17) mg/dL Creatinine 3.60 H (0.52-1.04) mg/dL Estimated GFR 12 L (>60) mL/min BUN/Creatinine Ratio 12.5 (6-22) Glucose 233 H D (70-99) mg/dL Lactate 3.5 H (0.7-2.1) mmol/L Calcium 9.7 (8.4-10.2) mg/dL Total Bilirubin 1.1 (0.2-1.3) mg/dL AST 37 H (14-36) IU/L ALT 17 (<35) IU/L Alkaline Phosphatase 115 (38-126) U/L Total Creatine Kinase 79 (30-135) U/L Troponin I < 0.012 (0.01-0.034) ng/mL NT-Pro-B Natriuret Pep (<450) pg/mL Total Protein 6.9 (6.3-8.2) g/dL Albumin 4.0 (3.5-5.0) g/dL Globulin 2.9 (1.7-4.1) g/dL Albumin/Globulin Ratio 1.4 (1.0-2.8) Lipase 455 H (23-300) U/L Procalcitonin 0.306 (<0.5) ng/mL Urine Color Dark yellow Urine Appearance Sl cloudy Urine pH 5.5 (4.5-8.0) Ur Specific [place] >=1.030 H (1.000-1.035) Urine Protein 2+ H (Negative) Urine Glucose (UA) Negative (Negative) g/dL Urine Ketones Trace H (NEGATIVE) Urine Occult Blood 1+ H (Negative) Urine Nitrate Negative (Negative) Urine Bilirubin 1+ H (NEGATIVE) Ur Bilirubin Confirm Negative (Negative) Urine Urobilinogen 0.2 (0.2) E.U./dL Ur Leukocyte Esterase Negative (NEGATIVE) Urine RBC 0-1/hpf (0-5/HPF) Urine WBC 1-5/hpf (0-5/HPF) Ur Squamous Epith Cells 5-10 /hpf H (0-5/HPF) Calcium Oxalate Crystal Occasional H Amorphous Sediment 2+ Urine Bacteria Few (2-10) H (None) Hyaline Casts 1-5/lpf (None) Urine Mucus 1+ H (Negative) Ur Culture Indicated? Cult not indicated Vol Urine Centrifuged Low vol <10ml (spun) A 12/16/24 12/16/24 12/16/24 Range/Units 18:19 20:18 23:00 WBC (4.5-11.0) X10^3/uL RBC (4.0-5.2) X10^6/uL Hgb (12.0-16.0) g/dL Hct (36-46) % MCV (80-100) fL MCH (26-34) PG MCHC (30-36) % RDW (11.6-14.8) % Plt Count (150-400) X10^3/uL Neut % (Auto) (50-75) % Lymph % (Auto) (25-40) % [place] % (Auto) (3-14) % Eos % (Auto) (2-4) % Baso % (Auto) (0-2) % Neut # (Auto) (9599-7685) /uL Lymph # (Auto) (1051-6466) /uL [place] # (Auto) (0-900) /uL Eos # (Auto) (0-450) /uL Baso # (Auto) (0-100) /uL PT (9.4-12.5) SECONDS INR (0.9-1.3) APTT 154 H* D (25.1-36.5) SECONDS Sodium (137-145) mmol/L Potassium (3.4-5.1) mmol/L Chloride (98-107) mmol/L Carbon Dioxide (22-32) mmol/L BUN (7-17) mg/dL Creatinine (0.52-1.04) mg/dL Estimated GFR (>60) mL/min BUN/Creatinine Ratio (6-22) Glucose (70-99) mg/dL Lactate 1.7 (0.7-2.1) mmol/L Calcium (8.4-10.2) mg/dL Total Bilirubin (0.2-1.3) mg/dL AST (14-36) IU/L ALT (<35) IU/L Alkaline Phosphatase (38-126) U/L Total Creatine Kinase (30-135) U/L Troponin I (0.01-0.034) ng/mL NT-Pro-B Natriuret Pep 208 (<450) pg/mL Total Protein (6.3-8.2) g/dL Albumin (3.5-5.0) g/dL Globulin (1.7-4.1) g/dL Albumin/Globulin Ratio (1.0-2.8) Lipase (23-300) U/L Procalcitonin (<0.5) ng/mL Urine Color Urine Appearance Urine pH (4.5-8.0) Ur Specific [place] (1.000-1.035) Urine Protein (Negative) Urine Glucose (UA) (Negative) g/dL Urine Ketones (NEGATIVE) Urine Occult Blood (Negative) Urine Nitrate (Negative) Urine Bilirubin (NEGATIVE) Ur Bilirubin Confirm (Negative) Urine Urobilinogen (0.2) E.U./dL Ur Leukocyte Esterase (NEGATIVE) Urine RBC (0-5/HPF) Urine WBC (0-5/HPF) Ur Squamous Epith Cells (0-5/HPF) Calcium Oxalate Crystal Amorphous Sediment Urine Bacteria (None) Hyaline Casts (None) Urine Mucus (Negative) Ur Culture Indicated? Vol Urine Centrifuged MDM Narrative Medical decision making narrative: EKG shows sinus rhythm, peaked T-waves in 2 3 and AVF no other acute ST changes. Labs show white count of 17, hemoglobin of 11 platelets of 437. Coags are normal, sodium is 129 has dropped back down but was 130 on 12/08/2024 creatinine is 3.6 which has a new changes 0.5216 525 with a BUN of 45 CO2 of 13 chloride 98 potassium 4 9. Bilirubin is 1.1 AST is 37 ALT 17 alk-phos is 115 lipase is 455 with a troponin of less than 0.012. Procalcitonin 0.306, lactate 3.5. CT KUB, status post right lower quadrant ileostomy without complications seen. Generalized wall thickening seen with the colon worse within the ascending colon. Cholecystectomy with stable mild enlargement of the common bile duct of 12 mm. DVT ultrasound left lower extremity, prelim shows clot. From a read as extensive left lower extremity DVT including involving the external iliac vein and a portion of the IVC. Arterial ultrasound left lower extremity, prelim has flow. Patient had lactate, procalcitonin cultures added on, concern by possible arterial occlusion versus DVT of the left lower extremity suspect this maybe source for pain but CT KUB was obtained. CT runoff was not obtained initially as patient's creatinine is 3.6 up from prior at 0.5 to 6 days ago. Spoke with patient and family they are agreeable to treatment, patient is full code at this time but they note they would not want prolonged efforts. Reviewed all findings with the patient and her . Has been does note she does not take any anticoagulants. Patient was hypotensive receiving fluids, it was covered with antibiotics for potential infection/sepsis. Received 2 L of lactated Ringer's 1 L was from EMS. Patient was signed Zofran and fentanyl here in the department. Started on heparin for DVT. Because of patient's recent surgery, acute renal failure likely needs transfer some continue with heparin at this time. Spoke with coordinator . Do not have any bed availability for several days. Moriah saab, spoke with coordinator at 5:51 p.m. awaiting call back. Meds patient received 2 L of lactated Ringer's has not really had 10 mL of urine out received another 500 mL bolus of NS. Has had Zosyn, Zofran and fentanyl, patient was started on heparin drip. Spoke with Dr. López vascular, possible percutaneous thrombectomy. Happy to see. Asks that we talk with hospitalist. Coordinator as paging out hospitalist Patient signed out to Dr. Quintanilla while awaiting transfer. 815pm Care acceted at [facility], Dr Giang. Pt updated, questions answered. Will wait for bed assignment to contact transport Will send operateve notes from 12/03 and post op visit from 12/15 with transfer notes Discharge Plan Departure Patient Disposition: [facility] Clinical Impression: Dehydration Acute renal failure Qualifiers: Acute renal failure type: unspecified Qualified Code(s): N17.9 - Acute kidney failure, unspecified Acute deep vein thrombosis (DVT) of left lower extremity Qualifiers: Affected thrombotic vein of extremity: femoral Qualified Code(s): I82.412 - Acute embolism and thrombosis of left femoral vein Prescriptions: No Action citalopram 20 mg tablet 30 mg PO DAILY Rx Instructions: takes at noon famotidine 20 mg Tablet 20 mg PO BID rosuvastatin 10 mg tablet 10 mg PO DAILY Qty: 60 0RF lisinopril 10 mg tablet 10 mg PO DAILY hydrochlorothiazide 25 mg tablet 25 mg PO DAILY
--- NOTE | 2024-12-16 14:10 | DI.US.S_ITS ---
PROCEDURE: US ARTERIAL DUPLEX LE LT INDICATIONS: BLUE/PURPLE LEG AND PAIN TECHNIQUE: Color and pulse Doppler interrogation was performed of the left lower extremity arterial system, with image documentation. COMPARISON: None. FINDINGS: Common femoral artery: 189 cm/sec, with biphasic flow. Deep femoral artery: 196 cm/sec, with biphasic flow. Proximal superficial femoral artery: 143 cm/sec, with biphasic flow. Mid superficial femoral artery: 128 cm/sec, with biphasic flow. Distal superficial femoral artery: 140 cm/sec, with biphasic flow. Popliteal artery: 124 cm/sec, with biphasic flow. Posterior tibial artery: 27 cm/sec, with biphasic flow. Anterior tibial artery/dorsalis pedis: 22 cm/sec, with monophasic flow. Townsend-scale imaging description: Areas of atherosclerotic calcification and irregularity can be seen throughout. IMPRESSION: Mildly elevated flow velocities can be seen within the common femoral artery and the profunda femoris artery, which are consistent with inflow stenoses. Areas of calcification and irregularity can be seen more distally, yet without a mary hemodynamically significant stenosis. Note: Concordant preliminary findings given by the gas engine performance engineer upon the completion of the examination to Dr. Simms at 3:50 p.m. on December 16, 2024. Dictated by: Travis Lewis M.D. on 12/16/2024 at 15:37 Approved by: Travis Lewis M.D. on 12/16/2024 at 15:39
--- NOTE | 2024-12-16 14:10 | DI.CT.S_ITS ---
PROCEDURE: CT KIDNEY URETER BLADDER (KUB) INDICATIONS: acute kidney injury L leg color change, pain, s/p iliostomy TECHNIQUE: After the administration of oral contrast, 5 mm thick sections acquired from the diaphragms to the symphysis. 5 mm coronal and sagittal reformats were performed. For radiation dose reduction, the following was used: automated exposure control, adjustment of mA and/or kV according to patient size. COMPARISON: [facility], CT, CT ABDOMEN PELVIS W CON, 11/30/2024, 9:45. FINDINGS: Image quality: Limited by lack of IV contrast Lower Chest: No significant findings. ABDOMEN: Liver: No contour-deforming mass. Gallbladder: Removed. Biliary ducts: The common bile duct is mildly enlarged at 12 mm. Pancreas: No ductal dilation. Spleen: Size is within normal limits. Adrenal Glands: No adrenal nodules. Kidneys and Ureters: No hydronephrosis. No contour-deforming mass. Bowel and peritoneum: Postoperative change can be seen, with a right lower quadrant ileostomy. No dilated loops of small bowel are seen. Generalized wall thickening can be seen of the colon, which is worst within the descending colon. Colonic diverticulosis is seen, without findings of active diverticulitis. Ventral Wall: No significant hernia. Abdominal Nodes: No retroperitoneal or mesenteric adenopathy by size criteria. Vessels: Aorta and inferior vena cava are normal in size. Atherosclerotic calcification is noted. PELVIS: Pelvic Organs: No adnexal masses are seen on either side. Bladder: Unremarkable. Pelvic Nodes: No enlarged lymph nodes. Miscellaneous: No inguinal hernias are seen. Bones: No aggressive osseous abnormality. Degenerative changes are seen throughout, which are worst within the lumbar spine. IMPRESSION: Status post right lower quadrant ileostomy, without a complication seen. Generalized wall thickening can be seen of the colon, which is worst within the descending colon. Cholecystectomy, with stable mild enlargement of the common bile duct, 12 mm Dictated by: Travis Lewis M.D. on 12/16/2024 at 14:37 Approved by: Travis Lewis M.D. on 12/16/2024 at 14:41
--- NOTE | 2024-12-16 14:10 | DI.US.S_ITS ---
PROCEDURE: US PERIPH VENOUS LOW EXTREM LT INDICATIONS: LEG COLOR CHANGE/PAIN. RECENT SURGERY. TECHNIQUE: Real-time imaging, as well as color and pulse Doppler interrogation, were performed of the lower extremity deep veins from the inguinal ligament to the popliteal fossa, with documentation of the visualized calf veins. COMPARISON: [facility], US, US ARTERIAL DUPLEX LE LT, 12/16/2024, 15:07. [facility], CT, CT KIDNEY URETER BLADDER (KUB), 12/16/2024, 14:47. FINDINGS: Extensive occlusive deep venous thrombosis can be seen from the externally act vein through the common femoral vein and throughout the femoral vein, the popliteal vein, and the calf veins. There is also occlusion of the distal inferior vena cava. Portions of abdominal veins are not well seen, secondary to the ileostomy. IMPRESSION: Extensive left lower extremity deep venous thrombosis, including involving the external iliac vein and a portion of the IVC. Note: Concordant preliminary findings given by the typing checker upon the completion of the examination to Dr. Simms at 3:30 p.m. on December 16, 2024. Dictated by: Travis Lewis M.D. on 12/16/2024 at 15:20 Approved by: Travis Lewis M.D. on 12/16/2024 at 15:23
[2024-12-16 15:09] LABS: Procalcitonin 0.306 ng/mL (<0.5)
[2024-12-16] MEDS: LACTATED RINGERS 1,000 ML 1000 ML IV (15:47)
[2024-12-16 16:14] LABS: Lactate (Lactic Acid) 3.5 mmol/L (0.7-2.1)
[2024-12-16] MEDS: PIPERACILLIN/TAZO 4.5 GM in SODIUM CHLORIDE 0.9% 100 ML IV (16:26)
[2024-12-16] MEDS: HEPARIN 5,000 UNIT/ML VIAL 4500 UNIT IV (16:30)
[2024-12-16 16:43] LABS: Prothrombin Time 11.3 SECONDS (9.4-12.5)
[2024-12-16 16:46] LABS: PTT Partial Thromboplastin Tim 28 SECONDS (25.1-36.5)
[2024-12-16] MEDS: HEPARIN DRIP 25,000 UNIT/500 ML IV.SOLN 19.595 UNIT IV (16:55)
[2024-12-16 17:37] LABS: Reflexed Lactate in 2 Hours Y
[2024-12-16] MEDS: SODIUM CHLORIDE 0.9% 500 ML 1000 ML IV (17:43)
[2024-12-16 18:03] LABS: Appearance Urine UA SL CLOUDY; Bilirubin Urine UA 1+ (NEGATIVE); Color Urine UA Dark Yellow; Glucose Urine UA NEGATIVE (Negative); Ketones Urine UA TRACE (NEGATIVE); Leukocyte Esterase Urine UA NEGATIVE (NEGATIVE); Nitrite Urine UA NEGATIVE (Negative); Occult Blood Urine UA 1+ (Negative); Protein Urine UA 2+ (Negative); Specific Gravity Urine UA >=1.030 (1.000-1.035); Urobilinogen Urine UA 0.2 E.U./dL (0.2); pH Urine UA 5.5 (4.5-8.0)
--- NOTE | 2024-12-16 18:08 | PC.NURSE ---
US guided IV in the left AC has infiltrated with NS, this RN will remove IV.
[2024-12-16 18:10] LABS: Ictotest Urine Negative (Negative)
[2024-12-16 18:11] LABS: Amorphous Sediment Urine 2+; Bacteria Urine Few (2-10); Calcium Oxalate Crystals Urine Occasional; Culture Indicated Urine Cult Not Indicated; Hyaline Casts Urine 1-5/LPF; Mucus Urine 1+ (Negative); RBC Urine 0-1/HPF (0-5/HPF); Squamous Epithelial Cell Urine 5-10 /HPF (0-5/HPF); Urine Volume Low Vol <10mL (spun); WBC Urine 1-5/HPF (0-5/HPF)
[2024-12-16 18:34] LABS: Lactate 2HR (Lactic Acid Rflx) 1.7 mmol/L (0.7-2.1)
[2024-12-16] MEDS: SODIUM CHLORIDE 0.9% 1,000 ML 150 ML IV (20:35)
[2024-12-16 20:46] LABS: NT-proBNP (BNP-Adult 18+) 208 pg/mL (<450)
--- NOTE | 2024-12-16 21:36 | PC.NURSE ---
This RN reassessed pedal pulse on left leg with doppler, rate was regular at 83. Patient states that they currently feel very comfortable and have very little pain. Total ouput from mcqueen is 20cc since mcqueen placement, provider Dwight aware. Surgical site looks intact, no oozing, no redness. This RN emptied the ileostomy at 1800, output was brown/green liquid. Patients spouse at bedside states that since surgery 16 days ago patient has been more confused, patient knows her name and the year but doesnt know the city shes in and sometimes struggles to carry conversation.
[2024-12-16 23:28] LABS: PTT Partial Thromboplastin Tim 154 SECONDS (25.1-36.5)
--- NOTE | 2024-12-16 23:31 | PC.NURSE ---
Addendum entered by Pepper Sahu R.N. 12/17/24 00:08: Dr Quintanilla orders the heparin to be dropped 4units/kg/hr, [facility] nurse will transport the patient with heparin going at 14units/kg/hr. VM given report and made aware Original Note: Critical lab result of Ptt of 154, Heparin has been stopped @ 9884
[2024-12-17] VITALS: BP 92/54; PULSE 82; RESP 20; O2SAT 98
== END 2024-12-17 00:14 | disposition short-term general hospital (02) ==
PROVIDERS: Emergency Medicine; Emergency Provider Emergency Medicine; Family Provider Physician Assistant Medical
DX: I82.412 Acute embolism and thrombosis of left femoral vein (principal); N17.9 Acute kidney failure, unspecified; E86.0 Dehydration; R11.2 Nausea with vomiting, unspecified
CPT/HCPCS: 36415; 51798; 74176; 80053; 81001; 82550; 83605; 83690; 83880; 84145; 84484; 85025; 85610; 85730; 87040; 93005; 93926; 93971; 96365; 96366; 96367; 96375; 99284; 99285; J1644; J2405; J2543; J3010